=== PATIENT | female | born 1940 | race Caucasian/White ===

== ENCOUNTER 2016-10-27 12:25 | Emergency (ER) | payer OTHER ==
[~2016-10-27] VITALS: Ht 157.5 cm; Wt 60.9 kg
[~2016-10-27 12:25] MED LIST: ALEN70TA4 PO; ASPI-428 PO; CALC600T9 PO; LPT40 PO; LSN40 PO; METO50TA17 PO; NTRGSL/4 UT; [UNRECOGNIZED DRUG - CODE] PO
[2016-10-27 12:34] VITALS: TEMP 36.6; Ht 157.5 cm; Wt 60.9 kg
[2016-10-27] MEDS ORDERED: OXYMETAZOLINE HCL 0.05% NA SPR 15 ML BTL ONE (12:35)
[2016-10-27] MEDS ORDERED: ATOR-26 PO (12:55)
[2016-10-27] MEDS ORDERED: HYDR25TA4 PO (12:55)
[2016-10-27] MEDS ORDERED: OXYC1TAB3 PO (12:55)
[2016-10-27] MEDS ORDERED: AMLO-110 PO (12:55)
[2016-10-27] MEDS ORDERED: ACYC1CAP8 PO (12:55)
[2016-10-27] MEDS ORDERED: SILVER NITR/POTASSIUM NITRATE 10 APPLICATOR PACK EXT STA (13:06)
[2016-10-27] MEDS ORDERED: LIDOCAINE 4% W/AFRIN NASAL SOLN 4ML EXT STA (13:06)
--- NOTE | 2016-10-27 13:08 | EMERGENCY ROOM VISIT NOTE ---
History Report prepared by [place]: Carl Bettencourt Under the Supervision of: Dr. Ken Matt M.D. First contact with patient: 12:58 Chief Complaint: NOSE BLEED (MINOR) Stated Complaint: NOSE BLEED History of Present Illness The patient is a 76 year old female who presents to the Emergency Room via EMS with complaints of a resolving nose bleed that started around 4 and a half hours ago. She takes Aspirin, but does not take any other blood thinners. The patient states that she has sinus problems, so she blows her nose frequently every morning, but this morning, blood started running from her left side. She says that the nose bleed kept running even with lying down, so she called an ambulance, which came around an hour and a half ago. The patient adds that she takes a blood pressure medication, which has kept her blood pressure regulated well. The patient says she has had minor left-sided nose bleeds from time-to- time for the past few months, but has not had one this bad before. She has never had to have her nose cauterized before. The patient adds that she is getting an artificial heart valve next month. Source of History: patient Onset: 4 and a half hours ago Position: nose (left) Symptom Intensity: blood would not stop running Timing: other (resolving) Note: No other associated symptoms noted. Review of Systems See HPI for pertinent positives & negatives. A total of 10 systems reviewed and were otherwise negative. Past Medical & Surgical Medical Problems: (1) Anemia (2) Aortic stenosis (3) Carotid artery disease (4) Coronary artery disease (5) Dyslipidemia (6) Hypertension (7) Monoclonal gammopathy (8) Osteoporosis Family History Heart disease Hypertension Social History Smoking Status: Never Smoker Alcohol Use: none Drug Use: none Marital Status: single Housing Status: lives alone Occupation Status: retired Current/Historical Medications Scheduled Acyclovir (Zovirax), 400 MG PO QAM Alendronate Sodium (Fosamax), 70 MG PO WK Amlodipine (Norvasc), 5 MG PO QPM Aspirin (Ecotrin Low Strength), 81 MG PO DAILY Atorvastatin (Lipitor), 80 MG PO DAILY Hydrochlorothiazide (Hctz), 25 MG PO DAILY Metoprolol Tartrate (Metoprolol Tartrate), 50 MG PO BID Scheduled PRN Nitroglycerin (Nitrostat), 0.4 MG UT PRN PRN for chest pain Oxycodone Ir (Roxicodone Ir), 5 MG PO Q4H PRN for Severe Pain Allergies Coded Allergies: No Known Allergies (Unverified , 10/27/16) Physical Exam Vital Signs Date Time Temp Pulse Resp B/P (MAP) Pulse Ox O2 Delivery O2 Flow Rate FiO2 10/27/16 14:33 88 16 136/78 96 Room Air 10/27/16 14:00 96 20 141/100 97 Room Air 10/27/16 12:34 36.6 102 19 177/98 98 Room Air Physical Exam GENERAL: Patient is in no acute distress. HEENT: Nasal clip in place. Minimal oozing of blood from left side of nose. No active bleeding down back of throat. Mucous membranes moist. NECK: No stridor, no adenopathy, no meningismus, trachea is midline. LUNGS: Clear to auscultation bilaterally, no wheeze, no rhonchi, breath sounds equal. HEART: 4/6 grade systolic murmur with a regular rate and rhythm. ABDOMEN: Soft, nontender, bowel sounds positive, no hernias, no peritonitis. EXTREMITIES: No cyanosis or edema, full range of motion of all the joints without pain or difficulty, no signs for acute trauma. NEUROLOGIC: Oriented x 3, no acute motor or sensory deficits, no focal weakness. SKIN: No rash, no jaundice, no diaphoresis. Medical Decision & Procedures Laboratory Results 10/27/16 13:15 Red Blood Count 3.57, Mean Corpuscular Volume 90.2, Mean Corpuscular Hemoglobin 31.9, Mean Corpuscular Hemoglobin Concent 35.4, Mean Platelet Volume 9.3, Neutrophils (%) (Auto) 84.3, Lymphocytes (%) (Auto) 6.7, Monocytes (%) (Auto) 7.8, Eosinophils (%) (Auto) 0.7, Basophils (%) (Auto) 0.3, Neutrophils # (Auto) 8.25, Lymphocytes # (Auto) 0.66, Monocytes # (Auto) 0.76, Eosinophils # (Auto) 0.07, Basophils # (Auto) 0.03 Test 10/27/16 13:15 White Blood Count 9.79 K/uL (4.8-10.8) Red Blood Count 3.57 M/uL (4.2-5.4) Hemoglobin 11.4 g/dL (12.0-16.0) Hematocrit 32.2 % (37-47) Mean Corpuscular Volume 90.2 fL (80-100) Mean Corpuscular Hemoglobin 31.9 pg (25-34) Mean Corpuscular Hemoglobin Concent 35.4 g/dl (32-36) Platelet Count 158 K/uL (130-400) Mean Platelet Volume 9.3 fL (7.4-10.4) Neutrophils (%) (Auto) 84.3 % Lymphocytes (%) (Auto) 6.7 % Monocytes (%) (Auto) 7.8 % Eosinophils (%) (Auto) 0.7 % Basophils (%) (Auto) 0.3 % Neutrophils # (Auto) 8.25 K/uL (1.4-6.5) Lymphocytes # (Auto) 0.66 K/uL (1.2-3.4) Monocytes # (Auto) 0.76 K/uL (0.11-0.59) Eosinophils # (Auto) 0.07 K/uL (0-0.5) Basophils # (Auto) 0.03 K/uL (0-0.2) RDW Standard Deviation 43.3 fL (36.4-46.3) RDW Coefficient of Variation 13.1 % (11.5-14.5) Immature Granulocyte % (Auto) 0.2 % Immature Granulocyte # (Auto) 0.02 K/uL (0.00-0.02) Prothrombin Time 11.2 SECONDS (9.0-12.0) Prothromb Time International Ratio 1.0 (0.9-1.1) Activated Partial Thromboplast Time 26.9 SECONDS (21.0-31.0) Partial Thromboplastin Ratio 1.0 Laboratory results reviewed by me. Medications Administered Medications (Trade) Dose Ordered Sig/Bailey Route Start Time Stop Time Status Last Admin Dose Admin Oxymetazoline HCl (Afrin 0.05% Nasal [place]) 75 sprays STK-MED ONCE .ROUTE 10/27/16 12:35 10/27/16 12:36 DC 10/27/16 12:38 75 SPRAYS Procedure Nasal cautery: using lidocaine spray, left side of nose was anesthetized and silver nitrate was used to cauterize potential bleeding site, no complications. ED Course 1301: The patient was evaluated in room B6. A complete history and physical exam was performed. 1306: Ordered Afrin W/ Lidocaine 4% 4 ml EXT, Silver Nitrate Applicators 3 pkt EXT. 1412: I performed a nasal cautery on the patient. No complications. 1450: I reevaluated the patient and she is doing well. The patient verbally expressed understanding and agreement of the treatment plan. The patient will be discharged. 1500: Ordered [place] Nasal [place] 1 sprays NA. Medical Decision Differential diagnoses considered include coagulopathy, anemia, uncontrolled blood pressure, anterior or posterior epistaxis. There is no leukocytosis or concerning anemia. No coagulopathy. The patient's blood pressure is reasonably controlled. On exam, the patient had some bleeding from the left side of the nose. A nasal clip had been applied prior to my arrival in the room. I did apply some additional Afrin to the left side of the nose and repositioned the clip. After 30 minutes, the patient was still having some bleeding, the clip was reapplied. The patient was evaluated after about another 30 minutes, there was no active bleeding. I did cauterize a small area to the left anterior septum that appeared to have been bleeding earlier. The patient was watched here in the emergency room with no further bleeding. She is being discharged home with [place] nasal spray, she can return for persistent bleeding. She will follow with her doctors office. Medication Reconcilliation Current Medication List: was personally reviewed by me Blood Pressure Screening Patient's blood pressure: Elevated blood pressure Blood pressure disposition: Elevated BP felt to be situational Impression Primary Impression: Left-sided epistaxis Scribe Attestation The scribe's documentation has been prepared under my direction and personally reviewed by me in its entirety. I confirm that the note above accurately reflects all work, treatment, procedures, and medical decision making performed by me. Departure Information Dispostion Home / Self-Care Referrals Hermelindo Be, DO Forms HOME CARE DOCUMENTATION FORM, IMPORTANT VISIT INFORMATION Patient Instructions [facility] Additional Instructions if nose rebleeds apply the clip for 30 minutes--return to the ER if the bleeding will not stop ocean spray to the nose 1 spray every 2 hours no stooping or blowing the nose no hot showers see corrina eldridge for a recheck this week
[2016-10-27 13:29] LABS: BASO % 0.3 %; BASO ABS # 0.03 K/uL (0-0.2); COMPLETE YES; EOS % 0.7 %; HEMATOCRIT 32.2 % (37-47); IG% 0.2 %; LYMPH % 6.7 %; LYMPH ABS # 0.66 K/uL (1.2-3.4); MEAN CELL VOLUME 90.2 fL (80-100); MEAN CORPUSCULAR HEMOGLOBIN 31.9 pg (25-34); MEAN CORPUSCULAR HGB CONC 35.4 g/dl (32-36); MEAN PLATELET VOLUME 9.3 fL (7.4-10.4); MONO % 7.8 %; NEUT % 84.3 %; PLATELET COUNT 158 K/uL (130-400); RED BLOOD COUNT 3.57 M/uL (4.2-5.4); WHITE BLOOD COUNT 9.79 K/uL (4.8-10.8)
[2016-10-27 13:50] LABS: PROTHROMBIN TIME (PATIENT) 11.2 SECONDS (9.0-12.0)
[2016-10-27 14:33] VITALS: BP 136/78; PULSE 88; O2SAT 96
[2016-10-27] MEDS ORDERED: SODIUM CHLORIDE 0.65% NA SOLN 45 ML (OCEAN) ONE (15:00)
[2016-11-03] MEDS ORDERED: LSN40 PO (06:57)
== END 2016-10-27 15:00 | disposition home or self-care (01) ==
LOC: EDBD 12:25 → C.EDB 12:26
DX: R04.0 Epistaxis (principal); I25.10 Atherosclerotic heart disease of native coronary artery without angina pectoris; E78.5 Hyperlipidemia, unspecified; I10 Essential (primary) hypertension; M10.9 Gout, unspecified; D64.9 Anemia, unspecified; Z79.82 Long term (current) use of aspirin; Z79.899 Other long term (current) drug therapy

== ENCOUNTER → 2016-11-03 | Day surgery (SDC) | payer OTHER ==
[~2016-11-03] VITALS: Ht 157.5 cm; Wt 62.0 kg
[~2016-11-03] MED LIST changes: +ACETAMINOPHEN 325 MG TAB PO PRN; +ACYC1CAP8 PO; +AMLO-110 PO; +ATOR-26 PO; +ATROPINE SULFATE 0.1 MG/ML 5ML SYR IV PRN; -CALC600T9 PO; +DC ALL ANTICOAGULANTS PRN; +FENTANYL CITRATE INJ 50 MCG/1 ML 2 ML VIAL ONE; +HEPARIN SOD (PORCINE) 1000 UNIT/ML 10 ML VIAL ONE; +HYDR25TA4 PO; -LPT40 PO; +MIDAZOLAM HCL 1 MG/ML 2ML VIAL ONE; +NITROGLYCERIN/D5W 100MCG/ML 20ML SYR ONE; +NiCARDipine HCL INJ 2.5 MG/ML 10 ML AMP ONE; +ONDANSETRON INJ 2 MG/ML 2 ML VIAL IV PRN; +OXYC1TAB3 PO; +SODIUM CHLORIDE 0.9% 1000ML 1,000 ML IV SCH; +SODIUM CHLORIDE 0.9% 1000ML 250 ML IV PRN; -[UNRECOGNIZED DRUG - CODE] PO
[2016-11-03 07:22] VITALS: BP 159/76; PULSE 80; TEMP 36.5; O2SAT 95; Ht 157.5 cm; Wt 62.0 kg
--- NOTE | 2016-11-03 08:07 | History & Physical Bridge Note ---
H&P Re-Evaluation Bridge Note: I have examined the patient, reviewed the History & Physical and in the interval since the performance of the History & Physical I have noted the following changes of clinical significance: No changes noted except the patient had epistaxis a week ago treated in the ED and released. No addition problems or other bleeding.
--- NOTE | 2016-11-03 09:01 | Procedure Note ---
Pre-Mod Sedation Assessment General Date of Moderate Sedation: Nov 03, 2016. Start:8:23 AM Vital Signs: Vital Signs Past 12 Hours Date Time Temp Pulse Resp B/P (MAP) Pulse Ox O2 Delivery O2 Flow Rate FiO2 11/03/16 07:22 36.5 80 16 159/76 95 Room Air Review Cardiovascular: regular rate, rhythm, + systolic murmur Abdomen: normal bowel sounds, non tender, soft Lungs: chest non-tender, lungs clear Airway Class: I Pre-Sedation Airway Assessment Oral Cavity: WNL Able to Visualize Vocal Cords: No Short Thick Neck: No Hx of Sleep Apnea: No Smoking Status: Never Smoker Mallampati Classification: Class I ASA Classification: Class I Procedure Planning Contraindications-for Mod Sed: None Notes The planned sedation has been discussed with the patient and consent obtained. I have identified the patient, determined the appropriateness of sedation and have assessed the patient immediately prior to the procedure. All medicine(s) and interventions are by my order.
--- NOTE | 2016-11-03 09:02 | Procedure Note ---
Post-Mod Sedation Assessment General Date of Moderate Sedation Nov 03, 2016. Vital Signs: Vital Signs Past 12 Hours Date Time Temp Pulse Resp B/P (MAP) Pulse Ox O2 Delivery O2 Flow Rate FiO2 11/03/16 07:22 36.5 80 16 159/76 95 Room Air Review - Discharge Criteria Vital Signs Stable: Yes Alert/Oriented/Conversant: Yes Returned to Baseline Mental St: Yes Nausea Absent/Minimal: Yes Pain/Discomfort/Absent/Minimal: Yes Normal/Baseline Respirations: Yes Active Bleeding?: No Pt Received D/C Instructions: Yes Prescriptions Given: None Specific Proced. D/C Criteria Distal Pulses Present (Cardiac: Yes Groin site assessed-Card Cath: Yes Voided Prior To Discharge: Yes Discharged Patients Adult Escort/Transportation: Yes
--- NOTE | 2016-11-03 09:15 | Cardiac Catheterization ---
Procedure Note Procedure Date Nov 03, 2016. Pre-Procedure Diagnosis Valvular Disease AUC Score 9 Post-Procedure Diagnosis Mild CAD Procedure(s) Performed Coronary Angiography, Left Heart Cath, Right Heart Cath, LV Angiography, Aortography Adult Caregiver Dr. Be Reach Lift Truck Driver(s) None Estimated Blood Loss None Medication(s) Versed, Lidocaine 1% Summary of Findings Severe Aortic Stenosis Minor Coronary Artery Disease Hemodynamics Rest Ao: 147/57 Final Ao: 154/63 LV: 240/13 RA: 6 RV: 50/3 PA: 38/11 PW: 15 Recommendations valve replacement Specimens None Radiation Exposure (mGy) 1068 Contrast (mls) 140 Fluids (cc crystalloids) 50 Procedural Complication(s) None Disposition Scientific Affairs Manager Holding/Recovery ACC Data Cardiac Status Clinical evaluation leading to the procedure CAD Presntation: Stable angina Anginal Classification: CCS II Heart Failure: No Cardiogenic Shock w/in 24Hrs: No Cardiac Arrest w/in 24Hrs: No Imaging studies past 6 months: Yes Stress studies past 6 months: No Coronary Anatomy Dominant: Left LAD (% Stenosis): Mid (30) Circumflex (% Stenosis): Mid (10) RCA (% Stenosis): Normal Left Ventricular Angiography EF (%): 60 Mitral Regurgitation: None Aortography Aortic Regurgitation: None Diagnostic Status: Elective Closure Device Percutaneous Entry Location: Femoral Closure Device: Mynx Recommendations: valve replacement
--- NOTE | 2016-11-03 09:18 | Discharge Instructions ---
Discharge Instructions Procedure Procedure Date: Nov 03, 2016. Reason for Visit: Aortic Stenosis *Dr Be Doing*. Discharge Discharge Date: Nov 03, 2016. Discharge Diagnosis: Aortic Stenosis Last Recorded Wt (Kilograms): 62 Anesthesia Post Anesthesia Instructions: If you have had General Anesthesia or IV Sedation: * Do not drive today. * Resume driving when surgeon permits. * Do not make important decisions or sign legal documents today. * Call surgeon for: 1. Temperature elevations greater than 101 degrees F. 2. Uncontrollable pain. 3. Excessive bleeding. 4. Persistent nausea and vomiting. 5. Medication intolerance (nausea, vomiting or rash). * For nausea and vomiting use only clear liquids such as: tea, soda, bouillon until nausea subsides, then gradually increase diet as tolerated. * If you have any concerns or questions, call your surgeon's office. If physician is unavailable and it is an emergency, call 911 or go to the nearest emergency room. Instructions Activity Recommendations: limitations Recommended Home Diet: resume previous diet Allergies: Coded Allergies: No Known Allergies (Unverified , 10/27/16) Provider Instructions ACTIVITY RECOMMENDATIONS: It is common to feel weak and fatigue for a few days. * Do not drive or operate any motorized equipment for the next three days. * Limit stair usage (2 or 3 trips a day only) for the next three days. * Do not lift anything heavier than 10 pounds for the next three days. * Do not engage in vigorous exercise or any sports for the next five days. * You may shower the day after your procedure, but do not immerse the area for three days. Cleanse the site gently with soap and water. SPECIAL CARE INSTRUCTIONS: * You may replace the pressure dressing or band-aid the morning after the procedure. * After your procedure, it is normal to have a small bruise or small lump at the site. Examine your site daily for any change in the bruise or lump, redness, swelling, drainage or numbness. Notify your doctor if any change. BLEEDING: * If there is a small amount of bleeding at the site, lie down and apply firm pressure with a clean cloth for ten minutes. When the bleeding stops, lie quietly keeping the procedure limb straight for six hours. Notify your doctor as soon as possible. * If the bleeding does not stop after ten minutes or if there is a large amount of bleeding or spurting, call 911 immediately. Continue to lie down and hold firm pressure until help arrives. SKIN IRRITATION: * You may experience some redness and/or swelling in the area where radiation was administered. If any skin irritation occurs, please contact your family physician. FOLLOW UP VISIT: Keep any scheduled doctor appointments. Follow Up Follow-up with: Keep appointment with Dr. Sanders at [facility] on Tuesday [facility] Recommendations: Call your doctor if: * Temperature above 101 degrees * Pain not relieved by pain medicine ordered * There is increased drainage or redness from any incision * You have any unanswered questions or concerns. Your Doctors Instructions noted above were prepared by provider Hermelindo Be. Patient Signature Section: Patient Instructions Signature Page Tamie Lopez Patient (or Guardian) Signature/Date: I have read and understand the instructions given to me by my caregivers. Caregiver/RN/Doctor Signature/Date: The above-named patient and/or guardian has received patient instructions on this date. + Original Patient Signature Page (only) stays with chart. Please make copy for patient.
[2016-11-03 10:02] LABS: ISTAT ARTERIAL BLOOD GAS HCO3 23 meq/L (19-24); ISTAT ARTERIAL BLOOD GAS PCO2 38 mmHg (35-46); ISTAT ARTERIAL BLOOD GAS PO2 < 32 mmHg (80-95); ISTAT ARTERIAL BLOOD GAS pH 7.39 (7.35-7.45); ISTAT CARBON DIOXIDE 24 mEq/l (24-31)
[2016-11-03 10:02] LABS: ISTAT ARTERIAL BLOOD GAS HCO3 22 meq/L (19-24); ISTAT ARTERIAL BLOOD GAS PCO2 36 mmHg (35-46); ISTAT ARTERIAL BLOOD GAS PO2 44 mmHg (80-95); ISTAT ARTERIAL BLOOD GAS pH 7.38 (7.35-7.45); ISTAT CARBON DIOXIDE 23 mEq/l (24-31)
[2016-11-03 10:24] LABS: ISTAT ALLEN TEST Pass; ISTAT ARTERIAL BLOOD GAS HCO3 22 meq/L (19-24); ISTAT ARTERIAL BLOOD GAS PCO2 36 mmHg (35-46); ISTAT ARTERIAL BLOOD GAS PO2 44 mmHg (80-95); ISTAT CARBON DIOXIDE 23 mEq/l (24-31); ISTAT DELIVERY SYSTEM Room Air; ISTAT SITE R Radial
[2016-11-03 13:00] VITALS: BP 138/75; PULSE 76; O2SAT 97
== END | disposition home or self-care (01) ==
LOC: C.CATH 06:25
PROVIDERS: ATTEND Internal Medicine Interventional Cardiology
DX: I35.0 Nonrheumatic aortic (valve) stenosis (principal); I25.119 Atherosclerotic heart disease of native coronary artery with unspecified angina pectoris; C90.01 Multiple myeloma in remission; N18.3 Chronic kidney disease, stage 3 (moderate); I12.9 Hypertensive chronic kidney disease with stage 1 through stage 4 chronic kidney disease, or unspecified chronic kidney disease; Z85.828 Personal history of other malignant neoplasm of skin

== ENCOUNTER 2020-10-20 20:39 | Inpatient (IN) ==
--- NOTE | 2020-10-20 20:59 | Emergency Department Note ---
Impression & Plan Anemia, Acute respiratory distress, Hypoxia, Pulmonary edema, Hypomagnesemia ED Provider Note NAME: LORIN SALMERON AGE: 80 SEX: F : 1940 ARRIVES VIA: Ambulance INFORMANT: Patient, EMS ED PROVIDER(S): Ab Marquez DO CHIEF COMPLAINT: Weakness HPI: The patient is an 80-year-old female who presented to the emergency depa rtment for an evaluation of generalized weakness. The patient has a history of multiple myeloma. Recently she decided to stop taking all medications and has decided that she wanted to be a DNR. She was found by family and friends today to be very weak. The patient was sent to the emergency department via ambulance because the friends were very concerned. At this time the patient denies having any chest pain. She does complain of significant difficulty breathing. She states the breathing difficulty is worse with lying flat or with ambulation. She denies having any fever. She does complain of a dry cough which is nonproductive. She states she has had no falls. She states she has been intermittently compliant with her outpatient medications only takes them when she wants to. The patient states that she has had no treatment for her multiple myeloma. She has not seen her family doctor recently. ROS: See above HPI for pertinent positives & negatives. A total of 10 systems reviewed and were otherwise negative. PAST MEDICAL HISTORY: See Below PAST SURGICAL HISTORY: See Below FAMILY HISTORY: See Below SOCIAL HISTORY: See Below HOME MEDICATIONS: See Below ALLERGIES: See Below VITALS: See Below PHYSICAL EXAMINATION: GENERAL: Patient is awake and alert. She appears frail and ill. EYES: The conjunctivae are clear. The pupils are round and reactive. EARS, NOSE, MOUTH AND THROAT: The nose is without any evidence of any deformity. NECK: The neck is nontender and supple. JVD was noted. RESPIRATORY: Diminished breath sounds are noted throughout. Rales were noted in the entire right lung field. Tachypnea with conversational dyspnea is appreci ated. CARDIOVASCULAR: Regular rate and rhythm was noted to auscultation. Systolic murmur was suggested. GASTROINTESTINAL: The abdomen is soft. Abdomen is nontender. MUSCULOSKELETAL/EXTREMITIES: There is no evidence of gross deformity full range of motion is noted in the hips and shoulders. SKIN: Pedal edema was noted bilaterally. NEUROLOGIC: Patient is awake alert and oriented x3. MEDICAL DECISION MAKING: The patient is an 80-year-old female who presented to the emergency department with difficulty breathing and generalized weakness. The patient was significantly hypoxic. Her overall history and physical exam appear to be consistent with pulmonary edema. She was treated with IV Lasix as well as IV magnesium for magnesium replacement in the emergency department. She was placed on supplemental oxygen. The patient states that she did not want to have any heroic measures and would prefer to be a DNR. At this time I will defer that formal discussion to the admitting team. I discussed the patient's laboratory and radiographic studies with her. [facility] They will evaluate the patient in the emergency department for further management and disposition. It is unclear if the patient wants transfusion at this time. Triage Nursing notes reviewed. Prior medical records reviewed Vital Signs: reviewed and remarkable for hypoxia. Differential diagnosis: Infection, dehydration, metabolic abnormality, hypo/hyperglycemia, electrolyte disturbance, anemia, hypoxia, cardiac sources, intracerebral event, toxicologic, neurologic, as well as other pathologies. ER treatment provided: See below Diagnostics interpreted by me: ECG: EKG was obtained in the emergency department. My interpretation is sinus rhythm at 97 bpm. PVCs were noted. Left bundle branch block pattern was noted with ST segment elevations in the anterior leads. This was compared to a tracing from August 252020. No significant changes were noted. Cardiac Monitoring: An order was placed for continuous cardiac monitoring. The monitor shows a rate of 80 bpm with sinus rhythm. Laboratory studies: As stated above and show below. Imaging studies: See below Consultation(s): I discussed this case with Dr. Donovan who [facility] He will evaluate the patient in the emergency department for further management and disposition. Past Med/Surg History Medical History Basal cell carcinoma left eye lid Cancer MULTIPLE MYELOMA Cancer of [place] of right eye Carotid artery stenosis Chronic kidney disease UNKNOWN STAGE. NO DIAYLSIS NEEDED. Depression Hyperlipidemia Hypertension Osteoporosis Peripheral neuropathy Pulmonary hypertension Surgical History History of cataract surgery BILATERAL History of heart valve replacement "PIG VALVE" AORTIC VALVE REPLACEMENT. (11/30/2016) ARI ARTEAGA. FOLLOWS WITH DR JENNIFER Hx of blepharoplasty Social History Smoking Status: Never smoker Second Hand Exposure: No; Hx Alcohol Use: No Hx Substance Use: No Preferred Language: Serbian Communication Ability: Effective [place] Required: No Beliefs That Will Affect Care: None Current Living Situation: Alone Feels Safe at Home: Yes Assistive Devices: Glasses Allergies Allergies Allergy/AdvReac Type Severity Reaction Status Date / Time No Known Allergies Allergy Verified 10/20/20 21:48 Home Meds Home Medications Medication Instructions Recorded Confirmed amlodipine 5 mg tablet (Norvasc) 10 mg PO HS 06/21/18 10/20/20 atorvastatin 80 mg tablet 80 mg PO QAM 06/21/18 10/20/20 hydrochlorothiazide 25 mg tablet 25 mg PO QAM 06/21/18 10/20/20 lisinopril 10 mg tablet 10 mg PO QAM 06/21/18 10/20/20 metoprolol tartrate 50 mg tablet 50 mg PO BID 06/21/18 10/20/20 (Lopressor) apixaban 2.5 mg tablet (Eliquis) 2.5 mg PO BID 08/25/20 10/20/20 cetirizine 1 mg/mL oral solution 5 mg PO DAILY 08/25/20 10/20/20 acyclovir 400 mg tablet 400 mg PO DAILYBB 10/20/20 10/20/20 Results & Data (ED) Vital Signs Vital Signs - 24 hr 10/20/20 20:51 10/20/20 21:00 10/20/20 21:30 Temperature 36.8 C Temperature Source Oral Pulse Rate 98 H 97 H 89 Pulse Rate from SpO2 Sensor 94 H 88 Respiratory Rate 24 28 H 26 H Respiratory Effort / Characteristics Non-Labored Spontaneous Respiratory Depth Normal Blood Pressure 145/65 H 149/66 H 146/65 H Blood Pressure Mean 91 93 92 Pulse Oximetry 78 L 94 94 Oxygen Delivery Method Room Air Nasal Cannula Nasal Cannula Oxygen Flow Rate Sepsis New/Unexplained Change in Mental Status N/A Sepsis Action Taken by Nursing No Action Required 10/20/20 22:00 10/20/20 22:30 10/20/20 23:00 Temperature Temperature Source Pulse Rate 94 H 83 87 Pulse Rate from SpO2 Sensor 95 H 83 86 Respiratory Rate 26 H 22 23 Respiratory Effort / Characteristics Respiratory Depth Blood Pressure 150/73 H 134/59 L 139/65 Blood Pressure Mean 98 84 89 Pulse Oximetry 94 98 92 Oxygen Delivery Method Nasal Cannula Nasal Cannula Nasal Cannula Oxygen Flow Rate 3 3 Sepsis New/Unexplained Change in Mental Status Sepsis Action Taken by Nursing 10/20/20 23:30 10/21/20 00:00 Temperature Temperature Source Pulse Rate 97 H 79 Pulse Rate from SpO2 Sensor 96 H 84 Respiratory Rate 24 24 Respiratory Effort / Characteristics Respiratory Depth Blood Pressure 153/76 H 140/65 Blood Pressure Mean 101 90 Pulse Oximetry 95 91 Oxygen Delivery Method Nasal Cannula Nasal Cannula Oxygen Flow Rate 3 3 Sepsis New/Unexplained Change in Mental Status Sepsis Action Taken by Nursing Laboratory Data Result diagrams: 10/20/20 21:09 10/20/20 21:09 Lab Results 10/20/20 10/20/20 10/20/20 Range/Units 20:56 20:56 21:09 WBC (4.8-10.8) K/uL RBC (4.2-5.4) M/uL Hgb (12.0-16.0) g/dL Hct (37-47) % MCV (80-100) fL MCH (25-34) pg MCHC (32-36) g/dL RDW Std Deviation (36.4-46.3) fL RDW Coeff of Chap[place] (11.5-14.5) % Plt Count (130-400) K/uL MPV (7.4-10.4) fL Immature Gran % (Auto) % Neut % (Auto) % Lymph % (Auto) % [place] % (Auto) % Eos % (Auto) % Baso % (Auto) % Neut # (Auto) (1.4-6.5) K/uL Lymph # (Auto) (1.2-3.4) K/uL [place] # (Auto) (0.11-0.59) K/uL Eos # (Auto) (0-0.5) K/uL Baso # (Auto) (0-0.2) K/uL Immature Gran # (Auto) (0.00-0.02) K/uL Polychromasia PT (9.0-12.0) Seconds INR (0.9-1.1) APTT (21.0-31.0) Seconds PTT Ratio VBG pH (7.36-7.41) VBG pCO2 (38-50) mmHg VBG pO2 mmHg VBG HCO3 mmol/L VBG O2 Saturation % VBG Base Excess mEq/L Barometric Pressure mm/Hg Sodium (136-145) mmol/L Potassium (3.5-5.1) mmol/L Chloride (98-107) mmol/L Carbon Dioxide (21-32) mmol/L Anion Gap (3-11) BUN (7-18) mg/dl Creatinine (0.6-1.2) mg/dl Est Cr Clr Drug Dosing ml/min Est GFR ( Amer) ml/min Est GFR (Non-Af Amer) ml/min BUN/Creatinine Ratio (10-20) Glucose (70-99) mg/dl Lactate (0.4-2.0) mmol/L Calcium (8.5-10.1) mg/dl Magnesium (1.8-2.4) mg/dl Total Bilirubin (0.2-1) mg/dl AST (15-37) U/L ALT (12-78) U/L Alkaline Phosphatase (45-117) U/L Total Creatine Kinase (26-192) U/L Troponin I (0-0.045) ng/ml NT-Pro-B Natriuret Pep (0-1800) pg/ml Total Protein (6.4-8.2) gm/dl Albumin (3.4-5.0) gm/dl Globulin (2.5-4.0) gm/dl Albumin/Globulin Ratio (0.9-2) TSH (0.300-4.500) uIu/ml COVID-19 Eval Order Covid19 at [facility] SARS-CoV-2 (PCR) NEGATIVE (Negative) Blood Type B Positive Antibody Screen NEGATIVE 10/20/20 10/20/20 10/20/20 Range/Units 21:09 21:09 21:09 WBC 8.00 (4.8-10.8) K/uL RBC 1.91 L (4.2-5.4) M/uL Hgb 6.2 L* (12.0-16.0) g/dL Hct 19.6 L* (37-47) % MCV 102.6 H (80-100) fL MCH 32.5 (25-34) pg MCHC 31.6 L (32-36) g/dL RDW Std Deviation 65.9 H (36.4-46.3) fL RDW Coeff of [place] 17.9 H (11.5-14.5) % Plt Count 146 (130-400) K/uL MPV 8.7 (7.4-10.4) fL Immature Gran % (Auto) 1.3 % Neut % (Auto) 66.0 % Lymph % (Auto) 20.0 % [place] % (Auto) 11.9 % Eos % (Auto) 0.5 % Baso % (Auto) 0.3 % Neut # (Auto) 5.29 (1.4-6.5) K/uL Lymph # (Auto) 1.60 (1.2-3.4) K/uL [place] # (Auto) 0.95 H (0.11-0.59) K/uL Eos # (Auto) 0.04 (0-0.5) K/uL Baso # (Auto) 0.02 (0-0.2) K/uL Immature Gran # (Auto) 0.10 H (0.00-0.02) K/uL Polychromasia 1+ PT 13.1 H (9.0-12.0) Seconds INR 1.3 H (0.9-1.1) APTT 35.6 H (21.0-31.0) Seconds PTT Ratio 1.4 VBG pH (7.36-7.41) VBG pCO2 (38-50) mmHg VBG pO2 mmHg VBG HCO3 mmol/L VBG O2 Saturation % VBG Base Excess mEq/L Barometric Pressure mm/Hg Sodium 137 (136-145) mmol/L Potassium 3.2 L (3.5-5.1) mmol/L Chloride 107 (98-107) mmol/L Carbon Dioxide 23 (21-32) mmol/L Anion Gap 8.0 (3-11) BUN 37 H (7-18) mg/dl Creatinine 1.65 H (0.6-1.2) mg/dl Est Cr Clr Drug Dosing 20.8 ml/min Est GFR ( Amer) 33.2 ml/min Est GFR (Non-Af Amer) 28.6 ml/min BUN/Creatinine Ratio 22.4 H (10-20) Glucose 123 H (70-99) mg/dl Lactate (0.4-2.0) mmol/L Calcium 8.3 L (8.5-10.1) mg/dl Magnesium 1.5 L (1.8-2.4) mg/dl Total Bilirubin 0.9 (0.2-1) mg/dl AST 22 (15-37) U/L ALT 15 (12-78) U/L Alkaline Phosphatase 108 (45-117) U/L Total Creatine Kinase 84 (26-192) U/L Troponin I 0.131 H* (0-0.045) ng/ml NT-Pro-B Natriuret Pep 73468 H (0-1800) pg/ml Total Protein 10.6 H (6.4-8.2) gm/dl Albumin 2.7 L (3.4-5.0) gm/dl Globulin 7.9 H (2.5-4.0) gm/dl Albumin/Globulin Ratio 0.3 L (0.9-2) TSH 2.270 (0.300-4.500) uIu/ml COVID-19 Eval Order SARS-CoV-2 (PCR) (Negative) Blood Type Antibody Screen 10/20/20 10/20/20 Range/Units 21:09 21:09 WBC (4.8-10.8) K/uL RBC (4.2-5.4) M/uL Hgb (12.0-16.0) g/dL Hct (37-47) % MCV (80-100) fL MCH (25-34) pg MCHC (32-36) g/dL RDW Std Deviation (36.4-46.3) fL RDW Coeff of [place] (11.5-14.5) % Plt Count (130-400) K/uL MPV (7.4-10.4) fL Immature Gran % (Auto) % Neut % (Auto) % Lymph % (Auto) % [place] % (Auto) % Eos % (Auto) % Baso % (Auto) % Neut # (Auto) (1.4-6.5) K/uL Lymph # (Auto) (1.2-3.4) K/uL [place] # (Auto) (0.11-0.59) K/uL Eos # (Auto) (0-0.5) K/uL Baso # (Auto) (0-0.2) K/uL Immature Gran # (Auto) (0.00-0.02) K/uL Polychromasia PT (9.0-12.0) Seconds INR (0.9-1.1) APTT (21.0-31.0) Seconds PTT Ratio VBG pH 7.44 H (7.36-7.41) VBG pCO2 34 L (38-50) mmHg VBG pO2 27 mmHg VBG HCO3 22 mmol/L VBG O2 Saturation < 60.0 % VBG Base Excess -1.6 mEq/L Barometric Pressure 733.0 mm/Hg Sodium (136-145) mmol/L Potassium (3.5-5.1) mmol/L Chloride (98-107) mmol/L Carbon Dioxide (21-32) mmol/L Anion Gap (3-11) BUN (7-18) mg/dl Creatinine (0.6-1.2) mg/dl Est Cr Clr Drug Dosing ml/min Est GFR ( Amer) ml/min Est GFR (Non-Af Amer) ml/min BUN/Creatinine Ratio (10-20) Glucose (70-99) mg/dl Lactate 2.0 (0.4-2.0) mmol/L Calcium (8.5-10.1) mg/dl Magnesium (1.8-2.4) mg/dl Total Bilirubin (0.2-1) mg/dl AST (15-37) U/L ALT (12-78) U/L Alkaline Phosphatase (45-117) U/L Total Creatine Kinase (26-192) U/L Troponin I (0-0.045) ng/ml NT-Pro-B Natriuret Pep (0-1800) pg/ml Total Protein (6.4-8.2) gm/dl Albumin (3.4-5.0) gm/dl Globulin (2.5-4.0) gm/dl Albumin/Globulin Ratio (0.9-2) TSH (0.300-4.500) uIu/ml COVID-19 Eval Order SARS-CoV-2 (PCR) (Negative) Blood Type Antibody Screen Administered Medications Magnesium Sulfate/Dextrose (Magnesium Sulfate / D5w) 1 gm in 100 mls @ 100 mls/hr IV Q1H SUMEET Stop: 10/21/20 00:18 Last Admin: 10/20/20 23:42 Dose: 100 mls/hr Documented by: [id number] Infusion: 10/20/20 23:42 Dose: 100 mls/hr Documented by: [id number] Admin: 10/20/20 22:50 Dose: 100 mls/hr Documented by: [id number] Discontinued Medications Furosemide (Furosemide 40 Mg/4 Ml Vial) 20 mg IV NOW STA Stop: 10/20/20 22:20 Last Admin: 10/20/20 22:46 Dose: 20 mg Documented by: [id number] Discharge Plan Visit Data Chief Complaint: Weakness Stated Complaint: WEAKNESS/LETHAGY ED Provider: Ab Marquez Discharge Problem: Anemia, Acute respiratory distress, Hypoxia, Pulmonary edema, Hypomagnesemia Patient Disposition: Being Evaluated by Hospitalist Condition: Good Forms Stand Alone Forms: My [facility] Prescriptions Prescriptions: No Action atorvastatin 80 mg Tablet 80 mg PO QAM RF: 0 amlodipine [Norvasc] 5 mg Tablet 10 mg PO HS RF: 0 lisinopril 10 mg Tablet 10 mg PO QAM RF: 0 metoprolol tartrate [Lopressor] 50 mg Tablet 50 mg PO BID RF: 0 hydrochlorothiazide 25 mg Tablet 25 mg PO QAM RF: 0 Eliquis 2.5 mg tablet 2.5 mg PO BID RF: 0 cetirizine 1 mg/mL solution 5 mg PO DAILY RF: 0 acyclovir 400 mg tablet 400 mg PO DAILYBB RF: 0 Referrals Referrals: Carlyle Garcia MD [Primary Care Provider] -
[2020-10-20 21:30] LABS: Base Excess VBG -1.6 mEq/L; HCO3 VBG 22 mmol/L; PCO2 VBG 34 mmHg (38-50); PO2 VBG 27 mmHg; pH VBG 7.44 (7.36-7.41)
[2020-10-20 21:33] LABS: INR 1.3 (0.9-1.1); Oxygen Saturation VBG < 60.0 %; Partial Thromboplastin Ratio 1.4; Partial Thromboplastin Time 35.6 Seconds (21.0-31.0); Prothrombin Time 13.1 Seconds (9.0-12.0)
[2020-10-20 21:45] LABS: Hematocrit (blood only) 19.6 % (37-47); Hemoglobin 6.2 g/dL (12.0-16.0); Mean Corpuscular Hemoglobin 32.5 pg (25-34); Mean Corpuscular Hgb Conc 31.6 g/dL (32-36); Mean Corpuscular Volume 102.6 fL (80-100); Mean Platelet Volume 8.7 fL (7.4-10.4); Platelet Count 146 K/uL (130-400); RDW Coefficient of Variation 17.9 % (11.5-14.5); RDW Standard Deviation 65.9 fL (36.4-46.3); Red Blood Count 1.91 M/uL (4.2-5.4)
[2020-10-20 21:56] LABS: Potassium 3.2 mmol/L (3.5-5.1)
[2020-10-20 22:06] LABS: Albumin Level 2.7 gm/dl (3.4-5.0); BUN Creatinine Ratio 22.4 (10-20); Calcium 8.3 mg/dl (8.5-10.1); Creatinine Clr Calc Pharmacy 20.8 ml/min; Est GFR (African American) 33.2 ml/min; Est GFR (Non-African American) 28.6 ml/min; Magnesium 1.5 mg/dl (1.8-2.4)
[2020-10-20] MEDS ORDERED: FUROSEMIDE 40 MG/4 ML VIAL IV STA (22:19)
[2020-10-20 22:28] LABS: Albumin Globulin Ratio 0.3 (0.9-2); Bilirubin,Total 0.9 mg/dl (0.2-1); Globulin 7.9 gm/dl (2.5-4.0); Thyroid Stimulating Hormone 2.27 uIu/ml (0.300-4.500); Total Protein 10.6 gm/dl (6.4-8.2); Troponin I 0.131 ng/ml (0-0.045)
[2020-10-20 22:32] LABS: Basophils # (auto) 0.02 K/uL (0-0.2); Basophils % (auto) 0.3 %; Eosinophils # (auto) 0.04 K/uL (0-0.5); Eosinophils % (auto) 0.5 %; Immature Granulocytes % (auto) 1.3 %; Monocytes # (auto) 0.95 K/uL (0.11-0.59); Monocytes % (auto) 11.9 %; Neutrophils # (auto) 5.29 K/uL (1.4-6.5); Polychromasia 1+
[2020-10-20] MEDS: MAGNESIUM SULFATE / D5W 1 GM/100 ML BAG IV SCH ×2 (22:50→23:42)
[2020-10-21] MEDS ORDERED: ACETAMINOPHEN 500 MG TAB PO ONE (01:00)
--- NOTE | 2020-10-21 02:07 | History and Physical Report ---
DATE OF ADMISSION: 10/20/2020. CHIEF COMPLAINT: Weakness. HISTORY OF PRESENT ILLNESS: This is an 80-year-old female with past medical history significant for multiple myeloma in relapse, history of DVT, hyperlipidemia, hypertension, aortic stenosis, status post TAVR, history of chronic kidney disease stage IIIB, malignant neoplasm of trigone of urinary bladder, peripheral polyneuropathy, compression fracture of thoracic vertebra, history of nonmelanoma skin cancer. The patient lives in an apartment. The patient, lately she is using a walker and she feels good about it and she says the last time she fell was in May. She was in the ER in August with complaint of back pain. Her imaging studies show multiple compression fractures of the spine. The patient went home to follow as outpatient. The patient was recently seen last week by her family doctor by telemedicine. The patient seems to be not taking her medications, she is on and off stopping her medications. She gets Meals on Wheels. As per family doctor notes also she states that she is ready to now and lived her life. Denies feeling depressed. Does not want to take any medication. No suicidal ideation as per her PCP notes. The patient today was brought in by her aides/friends. She says she gets two people to help her. Her friends and aides were concerned, and she was brought in here. She has complaints of difficulty breathing and also back pain. Has occasional dry cough and occasional gagging. She states she is not able to drink coffee. She is vomiting coffee, but she is able to eat her meals okay. Since the pandemic started, she stopped going to see her Hem/Onc and now she is having difficulty with ambulation and it is difficult to go to the office, but when asked her if transport arranged will she go, then she states that even one of her friends offered to help her, but she declined, she does not want to go to doctors. She says she is declining and she accepts it and she does not want to go and she does not want any treatment.But today she is acceptable for any blood transfusion or any treatments to make her feel better, but she wanted to be DNR/DNI. In the ER, she was requiring oxygen to maintain her saturations. Denies any chest pain, denies any headache. She says left eyelid is taken off of the cancer on the eyelid. Says has blurred vision sometimes on the left eye,but then it clears up. She has sinusitis and she has some runny nose and occasional sore throat. She has some chest pain on and off on the ribcage, abdominal discomfort sometimes on and off. She states she is moving her bowels regularly and denies any blood in the stool or black stools. No hematuria. She states 2-3 weeks ago she had one episode of bleeding, but she thinks it is from the hemorrhoids. She is ok to be seen by palliative care. She says that her appetite is not that great and she is losing weight. She says she does not have any kids and was not .She has one brother who is in town, and she is not talking to him, and there is a 93-year-old sister in [place]. Her insight seems to be good. She is alert and oriented. ALLERGIES: No known drug allergies. PAST MEDICAL HISTORY: As mentioned above. PAST SURGICAL HISTORY: Cystoscopy, left upper eyelid repair, Mohs surgery, bilateral cataract surgery, TAVR. MEDICATIONS: The patient is supposed to be on acyclovir 400 mg p.o. daily, amlodipine 10 mg p.o. at bedtime, Eliquis 2.5 mg p.o. b.i.d., atorvastatin 80 mg p.o. a.m., cetirizine 5 mg p.o. daily, hydrochlorothiazide 25 mg p.o. a.m., lisinopril 10 mg p.o. a.m., Lopressor 50 mg p.o. b.i.d. FAMILY HISTORY: Significant for mother had chronic kidney disease, cerebral hemorrhage; sister had cancer; another sister has breast cancer; brother has CAD; father has [place] and pneumoconiosis. SOCIAL HISTORY: Single, lives in an apartment. No smoking, no alcohol, no drug use. REVIEW OF SYSTEMS: As per HPI. Rest of the review of systems is negative. PHYSICAL EXAMINATION: GENERAL: The patient is old and frail, not in acute distress. VITAL SIGNS: Temperature 36.8, pulse 79, respiratory rate 24, blood pressure 140/65, oxygen 91% on 3 liters. HEENT: Pupils equal, round and reactive to light. Upper eyelid is absent. Oral mucosa dry. NECK: No JVD, no neck masses. HEART: S1 and S2 heard. Regular rate and rhythm. No murmur, no gallop. RESPIRATORY: Normal AP diameter. No accessory muscle use. No wheezing, no crackles. ABDOMEN: Soft, bowel sounds present, nontender, no distention. CENTRAL NERVOUS SYSTEM: Alert and oriented x3. Insight is good. Speech is clear. No facial droop. Obeys simple commands. Moves extremities. EXTREMITIES: A +1 pedal edema present, no erythema seen. LABORATORY DATA: WBC 8, hemoglobin 6.2, hematocrit 19.6, platelets 146. PT 13.1, INR 1.3, APTT 35.6. Venous blood gas with pH of 7.44, pCO2 of 34, pO2 of 27, bicarbonate 22. Sodium 137, potassium 3.2, chloride 107, bicarbonate 23, BUN 37, creatinine 1.65, serum glucose 123, lactate 2, calcium 8.3, magnesium 1.5, total bilirubin 0.9, AST 22, ALT 15, alkaline phosphatase 108. Total creatinine kinase 84. Troponin 1 of 0.13. BNP 13,281. TSH 2.2. SARS-CoV-2 PCR negative. IMAGING DATA: Chest x-ray, pulmonary congestion versus infiltrate within the left lung. EKG: Sinus rhythm with PVCs left bundle-branch block rate of 97, QTc of 502. ASSESSMENT AND PLAN: An 80-year-old female with history of multiple myeloma, history of deep venous thrombosis, declining any treatment, and presents with ongoing weakness and found to have anemia and also shortness of breath. 1. Shortness of breath: Could be congestive heart failure, could be pneumonia, anemia contributing. Currently received a dose of Lasix iv 20mg in the ER. Will continue oxygenation. Monitor in the tele floor. Will get an echocardiogram. The patient will get another dose of Lasix iv 40mg in between blood transfusion. Will closely monitor. will also get a CT of the chest. Will consider consulting cardiology in the a.m. 2. Anemia: Hemoglobin of 6.2. Hemoglobin was about 8.8 in August of this year. The patient has multiple myeloma. The patient has Eliquis. Denies any GI bleed. She had one episode of bleed a couple of weeks ago and thinks from hemorrhoids.. Not getting any treatment for myeloma currently. We will follow stool for Hemoccult, vitamin B12, folate levels. Will transfuse 2 units of PRBCs and follow the response. 3. Electrolyte abnormalities with a magnesium of 1.5, potassium of 3.2, will replace. Will follow the repeat labs. 4. Mild elevation of troponin, most likely demand ischemia. We will follow serial enzymes and echocardiogram. Currently, the patient denies any chest pain. 5. Chronic kidney disease stage III. Creatinine of 1.6. Seems to be around baseline. We will follow the labs while the patient is getting diuretics. 6. History of bladder tumor. Tumor was removed from lateral wall in January of 2019. She followed with repeat cystoscopy in April 2019. 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 There is a plan for repeat cysto in 6 months, but the patient seems to be not following. 7. History of deep venous thrombosis, on Eliquis. We will continue. 8. History of hypertension: On Norvasc, lisinopril, hydrochlorothiazide, Lopressor. Will monitor the blood pressure. 9. Hyperlipidemia, on statin. 10. Aortic stenosis, status post TAVR. 11. Compression fractures. Pain control. PT, OT when stable. 12. Peripheral neuropathy. Ambulates with a walker. PT/OT. 13. The patient currently seems to be sometimes not taking her medications, noncompliant with her medications. Does not want any treatment for her cancer, not following with any doctor. She says she is ready to , but she is okay to get treated for current conditions. The patient wants to be DNR/DNI and the patient was okay to talk to palliative care. Will consult palliative care in the a.m. 14. Deep venous thrombosis prophylaxis, on Eliquis, which will be continued. If hemoccult is positive, will hold Eliquis. 15, Prolonged qt. avoid qt prolonging drugs. Follow ekg. DISPOSITION: Admit to tele floor. PT/OT prior to discharge. Social service to help with discharge planning. Job ID: [id number] [facility] CENTERFelicity
[2020-10-21] MEDS ORDERED: ONDANSETRON INJ 2 MG/ML 2 ML VIAL IV PRN (02:25)
[2020-10-21] MEDS ORDERED: SODIUM CHLORIDE 0.9% 250 ML IV PRN (02:25)
[2020-10-21] MEDS ORDERED: NITROGLYCERIN SL 0.4 MG/TAB TAB SL PRN (02:25)
[2020-10-21] MEDS ORDERED: POLYETHYLENE (MIRALAX) 17 GM PACK PO PRN (02:25)
[2020-10-21] MEDS ORDERED: PIPERACILL/TAZOBAC CONSULT ACTIVE PRN (02:25)
[2020-10-21] MEDS ORDERED: PIPERACILLIN/TAZOBACTAM 3.375 GM in DEXTROSE 5% 100 ML IV ONE (03:00)
[2020-10-21] MEDS: DOXYCYCLINE HYCLATE 100 MG in DEXTROSE 5% 100 ML IV SCH ×2 (04:00→15:47)
[2020-10-21] MEDS ORDERED: FUROSEMIDE 40 MG/4 ML VIAL IV ONE ×2 (04:00→07:50)
[2020-10-21] MEDS: ACETAMINOPHEN 325 MG TAB PO PRN ×2 (04:04→14:29)
[2020-10-21] MEDS: ACYCLOVIR 400 MG TAB PO SCH (06:20)
--- NOTE | 2020-10-21 06:38 | Hospitalist Progress Note ---
Date of Service October 21, 2020 Assessment & Plan Admission and Anticipated Discharge Date Admission Date: October 20, 2020 Subjective started on antibiotics zosyn and doxy. Possible aspiration. full liquid diet and speech evaluation. Results & Data Results & Data ([facility]) Vital Signs (Past 12 Hours) Vital Signs Temp Pulse Pulse Resp BP BP Pulse Ox 10/21/20 06:00 36.8 C 81 18 138/61 93 10/21/20 05:39 36.7 C 77 18 142/63 H 91 10/21/20 05:30 36.6 C 76 18 133/66 93 10/21/20 05:08 36.7 C 80 18 136/65 95 10/21/20 04:54 36.5 C 82 18 148/65 H 91 10/21/20 04:36 36.5 C 81 18 136/63 91 10/21/20 02:40 36.5 C 90 18 139/62 92 10/21/20 02:39 10/21/20 02:00 90 24 138/69 94 10/21/20 01:00 82 23 127/61 95 10/21/20 00:30 88 19 147/84 H 10/21/20 00:00 79 24 140/65 91 10/20/20 23:30 97 H 24 153/76 H 95 10/20/20 23:00 87 23 139/65 92 10/20/20 22:30 83 22 134/59 L 98 10/20/20 22:00 94 H 26 H 150/73 H 94 10/20/20 21:30 89 26 H 146/65 H 94 10/20/20 21:00 97 H 28 H 149/66 H 94 10/20/20 20:51 36.8 C 98 H 24 145/65 H 78 L Pulse Ox 10/21/20 06:00 10/21/20 05:39 10/21/20 05:30 10/21/20 05:08 10/21/20 04:54 10/21/20 04:36 10/21/20 02:40 10/21/20 02:39 90 10/21/20 02:00 10/21/20 01:00 10/21/20 00:30 10/21/20 00:00 10/20/20 23:30 10/20/20 23:00 10/20/20 22:30 10/20/20 22:00 10/20/20 21:30 10/20/20 21:00 10/20/20 20:51
[2020-10-21 07:25] LABS: Rouleaux 1+
--- NOTE | 2020-10-21 07:52 | XRay Report ---
XR chest 1V portable CLINICAL HISTORY: weakness COMPARISON STUDY: Chest CT August 25, 2020. FINDINGS: Prosthetic aortic valve is noted. Note is made of moderate cardiomegaly. There is no pneumo thorax. Moderate left pleural effusion is noted. There is a small right pleural effusion. Pulmonary e lamonte is noted. Bilateral airspace opacities are greater within the left lung. Findings have increased since chest CT of August 25, 2020. IMPRESSION: 1. Moderate pulmonary edema. 2. Moderate left pleural effusion with left lung airspace opacity which could reflect atelectasis or less likely consolidation. 3. Small right pleural effusion. ACT 112: Negative or not required by law. Electronically signed by: Davi Butler M.D. 10/21/2020 7:50 AM
[2020-10-21] MEDS: APIXABAN 2.5 MG TAB PO SCH ×3 (08:06→20:04)
[2020-10-21] MEDS: CETIRIZINE HCL 10 MG TABLET PO SCH (08:08)
[2020-10-21] MEDS: ATORVASTATIN 40 MG TAB PO SCH (08:08)
[2020-10-21] MEDS: lisinopril 10 MG TAB PO SCH (08:13)
[2020-10-21] MEDS: METOPROLOL TARTRATE 50 MG TAB PO SCH ×2 (08:13→20:01)
--- NOTE | 2020-10-21 08:17 | Pulmonary Consultation ---
Date of Consultation October 21, 2020 Assessment & Plan (1) Acute respiratory failure with hypoxia: 80-year-old female with a history of multiple myeloma not on treatment, CHF, aortic stenosis and CKD stage III presenting to the hospital due to weakness and shortness of breath. Left pleural effusion: I performed a thoracentesis of the left pleural effusion. 560 mL of fawn-colored fluid was evacuated from the left hemithorax. Pleural fluid studies sent including cultures and cytology. CHF remains high in the differential. Recommend obtaining an echocardiogram. Agree with continued diuresis. She does appear fluid overloaded, overall. Hypoxia: Continue to wean oxygen to maintain saturations of 88 to 92%. Her pulse ox readings from her forehead are very poor. I suggested to the nurse to find a different location to monitor her pulse oximetry including possibly her finger. She is currently on oxygen mask at 7 L/min. I doubt that she needs this amount of oxygen at this time. Acute anemia: Suspect this is likely contributing to her shortness of breath and possibly contributing to from cardiac failure. Agree with replacing blood products to maintain hemoglobin above 7. She will likely need diuresis post transfusion. Anemia possibly related to multiple myeloma. Oncology input may be beneficial. Agree with palliative care consultation. Overall prognosis guarded. Thank you for the consultation. We will continue to follow along with you. (2) Bilateral pleural effusion: (3) Moderate protein-energy malnutrition: (4) Anemia: History of Present Illness Reason for Consultation: Acute hypoxic respiratory failure with left pleural effusion Attending Physician: Tank Story MD History of Present Illness 80-year-old female with a history of chronic kidney disease stage III, bladder cancer, peripheral polyneuropathy, compression fractures of the thoracic vertebra, hyperlipidemia, hypertension, history of DVT, aortic stenosis status post TAVR and skin cancer presenting to the hospital for generalized weakness. There is also mention of a history of multiple myeloma in her chart. She apparently stopped taking all her medications and decided to become DNR. She was found by family or friends to be very weak and brought to the ER. Patient was noted in the ER that she was having difficulty breathing which was worse when lying flat. Fever was denied. She has had intermittent compliance with her medications. She was started on Lasix 40 mg twice daily by the hospitalist. She was found to be anemic with a hemoglobin of 6.2. Chemistry suggested GEOFF. Creatinine is currently 1.65. Other electrolyte derangements including hypomagnesemia and hypokalemia. proBNP was markedly elevated to 13,281. Chest x-ray completed yesterday demonstrated moderate pulmonary edema. Moderate left pleural effusion with evidence of atelectasis. Small right pleural eff usion was seen as well. CT chest completed 10/21/2020 with evidence of bilateral effusions, left greater than right. Atelectasis seen. Significant motion artifact was seen. Prior CT chest from 08/25/2020 also personally reviewed which demonstrate left pleural effusion. Current pleural effusion appears larger. Allergies Allergy/AdvReac Type Severity Reaction Status Date / Time No Known Allergies Allergy Verified 10/20/20 21:48 Home Medications Medication Instructions Recorded Confirmed Type amlodipine 5 mg tablet (Norvasc) 10 mg PO HS 06/21/18 10/20/20 History atorvastatin 80 mg tablet 80 mg PO QAM 06/21/18 10/20/20 History hydrochlorothiazide 25 mg tablet 25 mg PO QAM 06/21/18 10/20/20 History lisinopril 10 mg tablet 10 mg PO QAM 06/21/18 10/20/20 History metoprolol tartrate 50 mg tablet 50 mg PO BID 06/21/18 10/20/20 History (Lopressor) apixaban 2.5 mg tablet (Eliquis) 2.5 mg PO BID 08/25/20 10/20/20 History cetirizine 1 mg/mL oral solution 5 mg PO DAILY 08/25/20 10/20/20 History acyclovir 400 mg tablet 400 mg PO DAILYBB 10/20/20 10/20/20 History Patient History Medical History (Updated 10/21/20 @ 09:51 by Paolo Ojeda MD) Acute respiratory failure with hypoxia Anemia Basal cell carcinoma left eye lid Bilateral pleural effusion Cancer MULTIPLE MYELOMA Cancer of [place] of right eye Carotid artery stenosis Chronic kidney disease UNKNOWN STAGE. NO DIAYLSIS NEEDED. Depression Hyperlipidemia Hypertension Moderate protein-energy malnutrition Osteoporosis Peripheral neuropathy Pulmonary hypertension Surgical History History of cataract surgery BILATERAL History of heart valve replacement "PIG VALVE" AORTIC VALVE REPLACEMENT. (11/30/2016) ARI ARTEAGA. FOLLOWS WITH DR JENNIFER Al of blepharoplasty Social History Smoking Status: Never smoker Second Hand Exposure: No; Hx Alcohol Use: No Hx Substance Use: No Preferred Language: Qatari Communication Ability: Effective Biology Tutor Required: No Beliefs That Will Affect Care: None Current Living Situation: Alone Current Living Situation Comment: [facility] [place] Other Information That Helps Us Care for You: No Feels Safe at Home: Yes Safety Concerns: Feels Safe At This Time Assistive Devices: Glasses Review of Systems Review of Systems: 01/15 point ROS negative unless noted elsewhere Physical Exam Constitutional: + thin and + frail appearing Eyes: PERRL, conjunctivae normal, anicteric sclerae ENMT: external ear and nose normal, oropharynx normal Neck: normal visual inspection Respiratory: + tachypneic Auscultation: + diminished lung sounds Cardiovascular: Rate/Rhythm: regular rate and regular rhythm Heart Sounds: + murmur Extremities: + edema Gastrointestinal (Abdomen): normal bowel sounds, soft, nontender, no hepatosplenomegaly Musculoskeletal: Head/Neck/Chest: + limited ROM of neck Kyphoscoliotic Skin: no rashes, warm and dry Neurologic: PERRL, EOMI, accommodation nl, no face palsy, no dysarthria Psychiatric: A+Ox3, euthymic affect Results & Data Results & Data ([facility]) Vital Signs (Past 12 Hours) Vital Signs Temp Pulse Pulse Pulse Resp BP BP 10/21/20 08:10 83 128/72 10/21/20 07:23 97.5 F L 81 12 10/21/20 07:20 97.5 F L 80 15 137/64 10/21/20 06:39 98.1 F 85 18 152/55 H 10/21/20 06:00 98.2 F 81 18 138/61 10/21/20 05:39 98.1 F 77 18 142/63 H 10/21/20 05:30 97.9 F 76 18 133/66 10/21/20 05:08 98.1 F 80 18 136/65 10/21/20 04:54 97.7 F 82 18 148/65 H 10/21/20 04:36 97.7 F 81 18 136/63 10/21/20 02:40 97.7 F 90 18 10/21/20 02:39 10/21/20 02:00 90 24 138/69 10/21/20 01:00 82 23 127/61 10/21/20 00:30 88 19 147/84 H 10/21/20 00:00 79 24 140/65 10/20/20 23:30 97 H 24 153/76 H 10/20/20 23:00 87 23 139/65 10/20/20 22:30 83 22 134/59 L 10/20/20 22:00 94 H 26 H 150/73 H 10/20/20 21:30 89 26 H 146/65 H 10/20/20 21:00 97 H 28 H 149/66 H 10/20/20 20:51 98.2 F 98 H 24 145/65 H BP Pulse Ox Pulse Ox 10/21/20 08:10 93 10/21/20 07:23 137/64 92 10/21/20 07:20 97 10/21/20 06:39 90 10/21/20 06:00 93 10/21/20 05:39 91 10/21/20 05:30 93 10/21/20 05:08 95 10/21/20 04:54 91 10/21/20 04:36 91 10/21/20 02:40 139/62 92 10/21/20 02:39 90 10/21/20 02:00 94 10/21/20 01:00 95 10/21/20 00:30 10/21/20 00:00 91 10/20/20 23:30 95 10/20/20 23:00 92 10/20/20 22:30 98 10/20/20 22:00 94 10/20/20 21:30 94 10/20/20 21:00 94 10/20/20 20:51 78 L Diagnostic Findings Chest x-ray CT imaging reviewed as noted per HPI PG Care Time/CCT Total # of Minutes Spent Total Time Spent with Patient: Total time spent is greater than 50% in coordination of care (as documented) at patient's floor/unit and/or counseling patient: Coding Level of Care Code 33736 Inpt Consult Level 5 Diagnoses Acute respiratory failure with hypoxia J96.01 Bilateral pleural effusion J90 Moderate protein-energy malnutrition E44.0 Anemia D64.9
--- NOTE | 2020-10-21 08:28 | CT Scan Report ---
CT chest diagnostic wo con CLINICAL HISTORY: pneumonia/chf. sob/cough COMPARISON STUDY: August 25, 2020 CT DOSE: 193.17 mGy.cm TECHNIQUE: CT of the thorax was performed from the thoracic inlet to the lung bases. Images are revi ewed in the axial, sagittal, and coronal planes. IV contrast was not administered for this examinatio n. A dose lowering technique was utilized adhering to the principles of ALARA. FINDINGS: There is no axillary, supra clavicle or internal mammary lymphadenopathy seen. Prominent, 1.3 cm precarinal lymph node is again seen. Overall evaluation is limited due to motion artifact and lack of IV contrast. Thyroid: Is not well seen. Esophagus is dilated, containing gas and ingested material. Lower portion of esophagus is not well s een due to surrounding opacities. Thoracic aorta: The thoracic aorta is normal in course and caliber. Heavy calcifications of aortic wa ll are seen. Prosthetic aortic valve and heavy calcifications of the mitral annulus are again seen. Heart: Heart is normal in size. Mild pericardial effusion is seen. Severe coronary calcifications are demonstrated. Lungs and pleural spaces: Trachea and the right bronchial tree are patent. Mild interval worsening of the left pleural effusion associated with compressive atelectasis of the l eft lower lobe. Small bronchial structures within effusion/consolidative portion of the left lower lo be are occluded which could be seen in aspiration or represent infectious/inflammatory etiology. Interval development of moderate right pleural effusion. Evaluation of lung parenchyma is significantly limited due to prominent motion artifact. Upper abdomen: Partially visualized liver, spleen and left kidney shows no evidence of acute abnorma lities. Mild ascites and mesenteric edema are seen. Skeletal structures: Severe diffuse osteopenia and multilevel compression fracture deformities of the thoracic spine interval worsening of compression fracture deformity of T6 redemonstration of joseph van fracture deformity of T8, T10. Interval development of compression fracture deformity of T4 and T12 vertebral bodies. IMPRESSION: 1. Dilated esophagus containing gas and ingested material. Interval worsening of the left pleural ef fusion and occluded bronchial structures at the left lower lobe could be due to aspiration. Please co rrelate above-mentioned findings with prior history and clinical presentation of aspiration. 2. Interval development of moderate right pleural effusion. 3. Stable cardiac silhouette without significant septal thickening of the aerated portion of pulmona ry parenchyma, differential diagnosis include heart failure pattern without significant interval wor sening. 4. Diffuse severe osteopenia. Multiple compression fracture deformities within thoracic spine which is worsening of the height loss of T6 and new compression fracture deformities of T4 and T12. 5. The rest of findings as detailed above. ACT 112: Positive. There are findings on this exam that require communication between the performing entity and the patient following Patient Test Result Information Act ([place] Act 112) guidelines. The above report was generated using voice recognition software. It may contain grammatical, syntax o r spelling errors. Electronically signed by: Viv Shah DO 10/21/2020 8:27 AM
--- NOTE | 2020-10-21 08:48 | Cardiology Consultation ---
Date of Consultation October 21, 2020 Assessment & Plan (1) Acute respiratory failure with hypoxia: b/l pleural effusions noted, L >R S/P Left thoracentesis this morning Supplement oxygen Continue low dose furosemide Appreciate pulm input (2) Bilateral pleural effusion: S/P thoracentesis Low dose IV lasix (3) Anemia: Evidence of coffee ground emesis, per patient, last week Hbg 6.2 on admission Transfuse as tolerated. IV lasix to keep I+O's even May need to hold Eliquis (on low dose for history of DVT) Consider GI consult (4) History of transcatheter aortic valve replacement (TAVR): Mildly elevated gradients on echo, however stable from 2017 Normal LV function severe pulm hypertension Continue low dose lasix Minimally elevated cardiac enzymes due to hypoxia and anemia, demand ischemia, not indicative of ACS. Case discussed with Dr. Gordon. Will follow Supervising Physician Co-Signing Physician Notes S: Pateint seen. Frail. No acute distress Exam: Decreased BS at the bases Impression/ Plan: Agree with Maya Gna PA-C's findings and plans with the follow ing additions. Hgb improved s/p transfusion to > 10 g/dl. Agree with repeat Hgb/ Hct at 1600. Most recent potassium level was 2.6 mmol / l, will coordinate replacement and follow up with Dr Story. Continue Zosyn for now due to concerns of aspiration. Continue diuretics. History of Present Illness Reason for Consultation: Elevated troponin; SOB; Pleural effusion Requesting Physician: Dr. Donovan Attending Physician: Dr. Gordon History of Present Illness Patient is an 80 year old female who is known to [facility] cardiology, Dr. Be for history of severe aortic stenosis, s/p TAVR in 2017, preop cath at that time demonstrated only mild CAD. Other history includes prior DVT on chronic Eliquis, CKD, history of multiple myeloma for which she apparently stopped therapies last year during COVID, history of bladder CA, hypertension and dyslipidemia. Apparently patient stopped taking her meds several months ago. She noted progressive weakness and "did not care to live anymore". Her friends became concerned and due to progressive weakness and SOB, she presented to ER yesterday. Found to have large left pleural effusion with significant anemia. She recalls several bouts of GI bleeding several weeks ago after having BM. She also reports "gagging/throwing up coffee" several weeks ago. On admission her troponin was minimally elevated, and cardiology was consulted. At time of consult, patient resting in bed comfortably. Oxygen mask in place with mild hypoxia. She underwent left thoracentesis earlier this morning which she tolerated. No chest pain reported. SOB improving per patient. No dizziness or lightheadedness. She is currently receiving blood transfusion. She reports ongoing weakness. She was agreeable to palliative care consult as well. Allergies Allergy/AdvReac Type Severity Reaction Status Date / Time No Known Allergies Allergy Verified 10/20/20 21:48 Home Medications Medication Instructions Recorded Confirmed Type amlodipine 5 mg tablet (Norvasc) 10 mg PO HS 06/21/18 10/20/20 History atorvastatin 80 mg tablet 80 mg PO QAM 06/21/18 10/20/20 History hydrochlorothiazide 25 mg tablet 25 mg PO QAM 06/21/18 10/20/20 History lisinopril 10 mg tablet 10 mg PO QAM 06/21/18 10/20/20 History metoprolol tartrate 50 mg tablet 50 mg PO BID 06/21/18 10/20/20 History (Lopressor) apixaban 2.5 mg tablet (Eliquis) 2.5 mg PO BID 08/25/20 10/20/20 History cetirizine 1 mg/mL oral solution 5 mg PO DAILY 08/25/20 10/20/20 History acyclovir 400 mg tablet 400 mg PO DAILYBB 10/20/20 10/20/20 History Patient History Medical History Acute respiratory failure with hypoxia Anemia Basal cell carcinoma left eye lid Bilateral pleural effusion Cancer MULTIPLE MYELOMA Cancer of [place] of right eye Carotid artery stenosis Chronic kidney disease UNKNOWN STAGE. NO DIAYLSIS NEEDED. Decreased appetite Depression Hyperlipidemia Hypertension Moderate protein-energy malnutrition Osteoporosis Palliative care encounter Peripheral neuropathy Pulmonary hypertension Shortness of breath Surgical History History of cataract surgery BILATERAL History of heart valve replacement "PIG VALVE" AORTIC VALVE REPLACEMENT. (11/30/2016) ARI ARTEAGA. FOLLOWS WITH DR JENNIFER Al of blepharoplasty Social History Smoking Status: Never smoker Second Hand Exposure: No; Hx Alcohol Use: No Hx Substance Use: No Preferred Language: Chadian Communication Ability: Effective Budget Accountant Required: No Beliefs That Will Affect Care: None marital status: Single Current Living Situation: Alone Current Living Situation Comment: [place]. [facility] Other Information That Helps Us Care for You: No Feels Safe at Home: Yes Safety Concerns: Feels Safe At This Time Assistive Devices: Oxygen - Continuous and Walker Review of Systems Review of Systems: All systems reviewed & are unremarkable except as noted in HPI & below Physical Exam Constitutional: + ill appearing and + thin; not in distress Eyes: Left eyelid removed Neck: trachea midline, no thyromegaly Respiratory: no respiratory distress Auscultation: + diminished lung sounds (bases bilaterally); no crackles and no wheezes Cardiovascular: Rate/Rhythm: regular rate and regular rhythm Heart Sounds: normal S1 and + murmur (II/ systolic murmur) Extremities: no edema Gastrointestinal (Abdomen): normal bowel sounds, soft, nontender, no hepatosplenomegaly Skin: no rashes, warm and dry Neurologic: PERRL, EOMI, accommodation nl, no face palsy, no dysarthria Psychiatric: A+Ox3, euthymic affect Results & Data ([facility]) Vital Signs (Past 12 Hours) Vital Signs Temp Pulse Pulse Pulse Resp BP BP 10/21/20 08:28 34.7 C L 92 H 18 145/73 H 10/21/20 08:10 83 128/72 10/21/20 07:23 36.4 C L 81 12 10/21/20 07:20 36.4 C L 80 15 137/64 10/21/20 06:39 36.7 C 85 18 152/55 H 10/21/20 06:00 36.8 C 81 18 138/61 10/21/20 05:39 36.7 C 77 18 142/63 H 10/21/20 05:30 36.6 C 76 18 133/66 10/21/20 05:08 36.7 C 80 18 136/65 10/21/20 04:54 36.5 C 82 18 148/65 H 10/21/20 04:36 36.5 C 81 18 136/63 10/21/20 02:40 36.5 C 90 18 10/21/20 02:39 10/21/20 02:00 90 24 138/69 10/21/20 01:00 82 23 127/61 10/21/20 00:30 88 19 147/84 H 10/21/20 00:00 79 24 140/65 10/20/20 23:30 97 H 24 153/76 H 10/20/20 23:00 87 23 139/65 10/20/20 22:30 83 22 134/59 L 10/20/20 22:00 94 H 26 H 150/73 H 10/20/20 21:30 89 26 H 146/65 H 10/20/20 21:00 97 H 28 H 149/66 H 10/20/20 20:51 36.8 C 98 H 24 145/65 H BP Pulse Ox Pulse Ox 10/21/20 08:28 10/21/20 08:10 93 10/21/20 07:23 137/64 92 10/21/20 07:20 97 10/21/20 06:39 90 10/21/20 06:00 93 10/21/20 05:39 91 10/21/20 05:30 93 10/21/20 05:08 95 10/21/20 04:54 91 10/21/20 04:36 91 10/21/20 02:40 139/62 92 10/21/20 02:39 90 10/21/20 02:00 94 10/21/20 01:00 95 10/21/20 00:30 10/21/20 00:00 91 10/20/20 23:30 95 10/20/20 23:00 92 10/20/20 22:30 98 10/20/20 22:00 94 10/20/20 21:30 94 10/20/20 21:00 94 10/20/20 20:51 78 L Laboratory Results 10/21/20 10/21/20 10/21/20 Range/Units 09:00 09:00 09:00 WBC (4.8-10.8) K/uL RBC (4.2-5.4) M/uL Hgb (12.0-16.0) g/dL Hct (37-47) % MCV (80-100) fL MCH (25-34) pg MCHC (32-36) g/dL RDW Std Deviation (36.4-46.3) fL RDW Coeff of Chaparrita (11.5-14.5) % Plt Count (130-400) K/uL MPV (7.4-10.4) fL Immature Gran % (Auto) % Neut % (Auto) % Lymph % (Auto) % [place] % (Auto) % Eos % (Auto) % Baso % (Auto) % Neut # (Auto) (1.4-6.5) K/uL Lymph # (Auto) (1.2-3.4) K/uL [place] # (Auto) (0.11-0.59) K/uL Eos # (Auto) (0-0.5) K/uL Baso # (Auto) (0-0.2) K/uL Immature Gran # (Auto) (0.00-0.02) K/uL Hypersegmented Neuts Polychromasia Rouleaux PT (9.0-12.0) Seconds INR (0.9-1.1) APTT (21.0-31.0) Seconds PTT Ratio VBG pH (7.36-7.41) VBG pCO2 (38-50) mmHg VBG pO2 mmHg VBG HCO3 mmol/L VBG O2 Saturation % VBG Base Excess mEq/L Barometric Pressure mm/Hg Sodium (136-145) mmol/L Potassium (3.5-5.1) mmol/L Chloride (98-107) mmol/L Carbon Dioxide (21-32) mmol/L Anion Gap (3-11) BUN (7-18) mg/dl Creatinine (0.6-1.2) mg/dl Est Cr Clr Drug Dosing ml/min Est GFR ( Amer) ml/min Est GFR (Non-Af Amer) ml/min BUN/Creatinine Ratio (10-20) Glucose (70-99) mg/dl Lactate (0.4-2.0) mmol/L Calcium (8.5-10.1) mg/dl Magnesium (1.8-2.4) mg/dl Total Bilirubin (0.2-1) mg/dl AST (15-37) U/L ALT (12-78) U/L Alkaline Phosphatase (45-117) U/L Total Creatine Kinase (26-192) U/L Troponin I (0-0.045) ng/ml NT-Pro-B Natriuret Pep (0-1800) pg/ml Total Protein (6.4-8.2) gm/dl Albumin (3.4-5.0) gm/dl Globulin (2.5-4.0) gm/dl Albumin/Globulin Ratio (0.9-2) TSH (0.300-4.500) uIu/ml Fluid Neutrophils % 17 % Fluid Lymphocytes % 9 % Fluid Eosinophils % 0 % Fluid Basophils % 0 % Fluid Meso/Macro/[place] % 74 % Fluid Comment Pleural Fluid Source LEFT LUNG Pleural Color STRAW Pleural Appearance HAZY Pleural pH 7.49 H (7.3-7.4) Pleural WBC 592 /uL Pleural RBC 4000 /uL Pleural Total Protein 5.3 g/dl Pleural LDH 158 U/L Pleural Glucose 124 mg/dl Pleural Amylase 43 U/L Pleural Cholesterol Pending COVID-19 Eval Order SARS-CoV-2 (PCR) (Negative) Blood Type Antibody Screen Crossmatch 10/20/20 10/20/20 10/20/20 Range/Units 21:09 21:09 21:09 WBC (4.8-10.8) K/uL RBC (4.2-5.4) M/uL Hgb (12.0-16.0) g/dL Hct (37-47) % MCV (80-100) fL MCH (25-34) pg MCHC (32-36) g/dL RDW Std Deviation (36.4-46.3) fL RDW Coeff of Chapar[place] (11.5-14.5) % Plt Count (130-400) K/uL MPV (7.4-10.4) fL Immature Gran % (Auto) % Neut % (Auto) % Lymph % (Auto) % [place] % (Auto) % Eos % (Auto) % Baso % (Auto) % Neut # (Auto) (1.4-6.5) K/uL Lymph # (Auto) (1.2-3.4) K/uL [place] # (Auto) (0.11-0.59) K/uL Eos # (Auto) (0-0.5) K/uL Baso # (Auto) (0-0.2) K/uL Immature Gran # (Auto) (0.00-0.02) K/uL Hypersegmented Neuts Polychromasia Rouleaux PT (9.0-12.0) Seconds INR (0.9-1.1) APTT (21.0-31.0) Seconds PTT Ratio VBG pH 7.44 H (7.36-7.41) VBG pCO2 34 L (38-50) mmHg VBG pO2 27 mmHg VBG HCO3 22 mmol/L VBG O2 Saturation < 60.0 % VBG Base Excess -1.6 mEq/L Barometric Pressure 733.0 mm/Hg Sodium 137 (136-145) mmol/L Potassium 3.2 L (3.5-5.1) mmol/L Chloride 107 (98-107) mmol/L Carbon Dioxide 23 (21-32) mmol/L Anion Gap 8.0 (3-11) BUN 37 H (7-18) mg/dl Creatinine 1.65 H (0.6-1.2) mg/dl Est Cr Clr Drug Dosing 20.8 ml/min Est GFR ( Amer) 33.2 ml/min Est GFR (Non-Af Amer) 28.6 ml/min BUN/Creatinine Ratio 22.4 H (10-20) Glucose 123 H (70-99) mg/dl Lactate 2.0 (0.4-2.0) mmol/L Calcium 8.3 L (8.5-10.1) mg/dl Magnesium 1.5 L (1.8-2.4) mg/dl Total Bilirubin 0.9 (0.2-1) mg/dl AST 22 (15-37) U/L ALT 15 (12-78) U/L Alkaline Phosphatase 108 (45-117) U/L Total Creatine Kinase 84 (26-192) U/L Troponin I 0.131 H* (0-0.045) ng/ml NT-Pro-B Natriuret Pep 61907 H (0-1800) pg/ml Total Protein 10.6 H (6.4-8.2) gm/dl Albumin 2.7 L (3.4-5.0) gm/dl Globulin 7.9 H (2.5-4.0) gm/dl Albumin/Globulin Ratio 0.3 L (0.9-2) TSH 2.270 (0.300-4.500) uIu/ml Fluid Neutrophils % % Fluid Lymphocytes % % Fluid Eosinophils % % Fluid Basophils % % Fluid Meso/Macro/[place] % % Fluid Comment Pleural Fluid Source Pleural Color Pleural Appearance Pleural pH (7.3-7.4) Pleural WBC /uL Pleural RBC /uL Pleural Total Protein g/dl Pleural LDH U/L Pleural Glucose mg/dl Pleural Amylase U/L Pleural Cholesterol COVID-19 Eval Order SARS-CoV-2 (PCR) (Negative) Blood Type Antibody Screen Crossmatch 10/20/20 10/20/20 10/20/20 Range/Units 21:09 21:09 21:09 WBC 8.00 (4.8-10.8) K/uL RBC 1.91 L (4.2-5.4) M/uL Hgb 6.2 L* (12.0-16.0) g/dL Hct 19.6 L* (37-47) % MCV 102.6 H (80-100) fL MCH 32.5 (25-34) pg MCHC 31.6 L (32-36) g/dL RDW Std Deviation 65.9 H (36.4-46.3) fL RDW Coeff of Chaparrita 17.9 H (11.5-14.5) % Plt Count 146 (130-400) K/uL MPV 8.7 (7.4-10.4) fL Immature Gran % (Auto) 1.3 % Neut % (Auto) 66.0 % Lymph % (Auto) 20.0 % [place] % (Auto) 11.9 % Eos % (Auto) 0.5 % Baso % (Auto) 0.3 % Neut # (Auto) 5.29 (1.4-6.5) K/uL Lymph # (Auto) 1.60 (1.2-3.4) K/uL [place] # (Auto) 0.95 H (0.11-0.59) K/uL Eos # (Auto) 0.04 (0-0.5) K/uL Baso # (Auto) 0.02 (0-0.2) K/uL Immature Gran # (Auto) 0.10 H (0.00-0.02) K/uL Hypersegmented Neuts 1+ Polychromasia 1+ Rouleaux 1+ PT 13.1 H (9.0-12.0) Seconds INR 1.3 H (0.9-1.1) APTT 35.6 H (21.0-31.0) Seconds PTT Ratio 1.4 VBG pH (7.36-7.41) VBG pCO2 (38-50) mmHg VBG pO2 mmHg VBG HCO3 mmol/L VBG O2 Saturation % VBG Base Excess mEq/L Barometric Pressure mm/Hg Sodium (136-145) mmol/L Potassium (3.5-5.1) mmol/L Chloride (98-107) mmol/L Carbon Dioxide (21-32) mmol/L Anion Gap (3-11) BUN (7-18) mg/dl Creatinine (0.6-1.2) mg/dl Est Cr Clr Drug Dosing ml/min Est GFR ( Amer) ml/min Est GFR (Non-Af Amer) ml/min BUN/Creatinine Ratio (10-20) Glucose (70-99) mg/dl Lactate (0.4-2.0) mmol/L Calcium (8.5-10.1) mg/dl Magnesium (1.8-2.4) mg/dl Total Bilirubin (0.2-1) mg/dl AST (15-37) U/L ALT (12-78) U/L Alkaline Phosphatase (45-117) U/L Total Creatine Kinase (26-192) U/L Troponin I (0-0.045) ng/ml NT-Pro-B Natriuret Pep (0-1800) pg/ml Total Protein (6.4-8.2) gm/dl Albumin (3.4-5.0) gm/dl Globulin (2.5-4.0) gm/dl Albumin/Globulin Ratio (0.9-2) TSH (0.300-4.500) uIu/ml Fluid Neutrophils % % Fluid Lymphocytes % % Fluid Eosinophils % % Fluid Basophils % % Fluid Meso/Macro/[place] % % Fluid Comment Pleural Fluid Source Pleural Color Pleural Appearance Pleural pH (7.3-7.4) Pleural WBC /uL Pleural RBC /uL Pleural Total Protein g/dl Pleural LDH U/L Pleural Glucose mg/dl Pleural Amylase U/L Pleural Cholesterol COVID-19 Eval Order SARS-CoV-2 (PCR) (Negative) Blood Type B Positive Antibody Screen NEGATIVE Crossmatch See Detail 10/20/20 10/20/20 Range/Units 20:56 20:56 WBC (4.8-10.8) K/uL RBC (4.2-5.4) M/uL Hgb (12.0-16.0) g/dL Hct (37-47) % MCV (80-100) fL MCH (25-34) pg MCHC (32-36) g/dL RDW Std Deviation (36.4-46.3) fL RDW Coeff of Chapar[place] (11.5-14.5) % Plt Count (130-400) K/uL MPV (7.4-10.4) fL Immature Gran % (Auto) % Neut % (Auto) % Lymph % (Auto) % [place] % (Auto) % Eos % (Auto) % Baso % (Auto) % Neut # (Auto) (1.4-6.5) K/uL Lymph # (Auto) (1.2-3.4) K/uL [place] # (Auto) (0.11-0.59) K/uL Eos # (Auto) (0-0.5) K/uL Baso # (Auto) (0-0.2) K/uL Immature Gran # (Auto) (0.00-0.02) K/uL Hypersegmented Neuts Polychromasia Rouleaux PT (9.0-12.0) Seconds INR (0.9-1.1) APTT (21.0-31.0) Seconds PTT Ratio VBG pH (7.36-7.41) VBG pCO2 (38-50) mmHg VBG pO2 mmHg VBG HCO3 mmol/L VBG O2 Saturation % VBG Base Excess mEq/L Barometric Pressure mm/Hg Sodium (136-145) mmol/L Potassium (3.5-5.1) mmol/L Chloride (98-107) mmol/L Carbon Dioxide (21-32) mmol/L Anion Gap (3-11) BUN (7-18) mg/dl Creatinine (0.6-1.2) mg/dl Est Cr Clr Drug Dosing ml/min Est GFR ( Amer) ml/min Est GFR (Non-Af Amer) ml/min BUN/Creatinine Ratio (10-20) Glucose (70-99) mg/dl Lactate (0.4-2.0) mmol/L Calcium (8.5-10.1) mg/dl Magnesium (1.8-2.4) mg/dl Total Bilirubin (0.2-1) mg/dl AST (15-37) U/L ALT (12-78) U/L Alkaline Phosphatase (45-117) U/L Total Creatine Kinase (26-192) U/L Troponin I (0-0.045) ng/ml NT-Pro-B Natriuret Pep (0-1800) pg/ml Total Protein (6.4-8.2) gm/dl Albumin (3.4-5.0) gm/dl Globulin (2.5-4.0) gm/dl Albumin/Globulin Ratio (0.9-2) TSH (0.300-4.500) uIu/ml Fluid Neutrophils % % Fluid Lymphocytes % % Fluid Eosinophils % % Fluid Basophils % % Fluid Meso/Macro/[place] % % Fluid Comment Pleural Fluid Source Pleural Color Pleural Appearance Pleural pH (7.3-7.4) Pleural WBC /uL Pleural RBC /uL Pleural Total Protein g/dl Pleural LDH U/L Pleural Glucose mg/dl Pleural Amylase U/L Pleural Cholesterol COVID-19 Eval Order Covid19 at [facility] SARS-CoV-2 (PCR) NEGATIVE (Negative) Blood Type Antibody Screen Crossmatch Diagnostic Findings EKG on admission: Sinus rhythm with Premature supraventricular complexes and with occasional Premature ventricular complexes Left bundle branch block No significant change from previous Chest xray completed this morning post left thoracentesis: IMPRESSION: 1. No pneumothorax following left thoracentesis. 2. Decrease in size of the left pleural effusion. 3. Persistent pulmonary edema Echo during this admission: LV wall motion is normal LVEF 60-65% Moderate MR Moderate to severe TR Severe pulm hypertension is present Pulm artery systolic pressure is 65-70 mmHg S/P TAVR - prosthetic valve not well visualized Peak Aortic valve velocity is 2.9 m/s. Mildly elevated, however, appears stable from prior study at [facility] 1 month post TAVR in Dec 2016. Grade I diastolic dysfunction In 2017, pulm systolic pressure was 40-45mmHg Prior outside echo completed 12/2016: Interpretation Summary The examination is adequate to evaluate the referral indication. The left ventricular cavity size is normal. The LV wall thickness is normal. Calculated LV ejection Fraction = 61% (biplane method of discs). The left ventricular wall motion is normal. The estimated pulmonary artery systolic pressure is 4045mm Hg. The patient is status post TAVR with Josias type prosthetic valve. Mild paravalvular aortic valve prosthesis regurgitation is present. Compared to previous study dated 12/01/2016, flow velocities through the aortic valve prosthesis are similar. Medications Administered Medications amlodipine 5 mg tablet (Norvasc) 10 mg PO HS 06/21/18 [History Confirmed 10/20/20] atorvastatin 80 mg tablet 80 mg PO QAM 06/21/18 [History Confirmed 10/20/20] hydrochlorothiazide 25 mg tablet 25 mg PO QAM 06/21/18 [History Confirmed 10/20/20] lisinopril 10 mg tablet 10 mg PO QAM 06/21/18 [History Confirmed 10/20/20] metoprolol tartrate 50 mg tablet (Lopressor) 50 mg PO BID 06/21/18 [History Confirmed 10/20/20] apixaban 2.5 mg tablet (Eliquis) 2.5 mg PO BID 08/25/20 [History Confirmed 10/20/20] cetirizine 1 mg/mL oral solution 5 mg PO DAILY 08/25/20 [History Confirmed 10/20/20] acyclovir 400 mg tablet 400 mg PO DAILYBB 10/20/20 [History Confirmed 10/20/20] Home Medications Acetaminophen (Acetaminophen 325 Mg Tab) 650 mg PO Q4H PRN PRN Reason: Pain or Fever Stop: 11/20/20 02:24 Last Admin: 10/21/20 04:04 Dose: 650 mg Documented by: Acyclovir (Acyclovir 400 Mg Tab) 400 mg PO DAILYBB [facility] Stop: 11/20/20 06:29 Last Admin: 10/21/20 06:20 Dose: 400 mg Documented by: Amlodipine Besylate (Amlodipine Besylate 5 Mg Tab) 10 mg PO HS [facility] Stop: 11/20/20 20:59 Apixaban (Apixaban 2.5 Mg Tab) 2.5 mg PO BID [facility] Stop: 11/20/20 08:59 Last Admin: 10/21/20 09:23 Dose: Not Given Documented by: Atorvastatin Calcium (Atorvastatin 40 Mg Tab) 80 mg PO QAM [facility] Stop: 11/20/20 08:59 Last Admin: 10/21/20 08:08 Dose: 80 mg Documented by: Cetirizine HCl (Cetirizine Hcl 10 Mg Tablet) 5 mg PO DAILY [facility] Stop: 11/20/20 08:59 Last Admin: 10/21/20 08:08 Dose: 5 mg Documented by: Hydrochlorothiazide (Hydrochlorothiazide 25 Mg Tab) 25 mg PO QAM [facility] Stop: 11/20/20 08:59 Last Admin: 10/21/20 08:13 Dose: 25 mg Documented by: Doxycycline Hyclate 100 mg/ (Dextrose) 110 mls @ 50 mls/hr IV Q12H SUMEET Stop: 10/28/20 02:59 Last Infusion: 10/21/20 06:20 Dose: Infused Documented by: Sodium Chloride (Nss) 250 mls @ 15 mls/hr IV .[id number] PRN PRN Reason: For Transfusion Stop: 11/20/20 02:24 Piperacillin Sod/Tazobactam (Sod 3.375 gm/ Dextrose) 115 mls @ 28.75 mls/hr IV Q8H [facility]; Protocol Stop: 10/28/20 09:59 Furosemide 20 mg/ Syringe 2 mls @ 4 mls/min IV DAILY [facility] Stop: 11/21/20 08:59 Lisinopril (Lisinopril 10 Mg Tab) 10 mg PO QAM [facility] Stop: 11/20/20 08:59 Last Admin: 10/21/20 08:13 Dose: 10 mg Documented by: Metoprolol Tartrate (Metoprolol Tartrate 50 Mg Tab) 50 mg PO BID [facility] Stop: 11/20/20 08:59 Last Admin: 10/21/20 08:13 Dose: 50 mg Documented by: Miscellaneous Information (Piperacill/Tazobac Consult Active) 1 ea N/A UD PRN PRN Reason: Consult Stop: 11/20/20 02:24 Nitroglycerin (Nitroglycerin Sl 0.4 Mg/Tab Tab) 0.4 mg SL UD PRN PRN Reason: Chest Pain Stop: 11/20/20 02:24 Polyethylene Glycol (Polyethylene (Miralax) 17 Gm Pack) 17 gm PO DAILY PRN PRN Reason: Constipation Stop: 11/20/20 02:24
[2020-10-21] MEDS ORDERED: FUROSEMIDE 20 MG in SYRINGE 0 ML IV SCH (09:00)
[2020-10-21] MEDS ORDERED: hydroCHLOROthiazide 25 MG TAB PO SCH (09:00)
--- NOTE | 2020-10-21 09:26 | Procedure Note ---
Procedure Note Date of Service October 21, 2020 Note Procedure: Diagnostic and/or therapeutic ultrasound-guided catheter thoracentesis Clinical Outcomes Manager: Dr. Paolo Ojeda Indication: Pleural effusion Consent: Signed by patient and verified with timeout prior to procedure Anesthesia: 8 mL's of 1% lidocaine without epinephrine given locally Procedure: Consent was verified and timeout performed. Appropriate imaging studies were reviewed prior to the procedure. Patient was placed in a left semirecumbent and and limited thoracic ultrasound was performed of the left lateral chest. See separate imaging. The site appropriate for thoracentesis was selected. The skin was prepped and draped in normal sterile fashion. Lidocaine was used for local analgesia. Fluid was aspirated via the finder needle. A small skin rush was made with the scalpel and the catheter over the needle apparatus was advanced over the rib into the pleural space. Using the syringe one-way valve system, a total of 560 mL's of fawn-colored fluid was removed. Procedure was terminated due to lack of flow. The catheter was removed and observed to be intact. A sterile dressing was applied. Post procedure chest x-ray was ordered. Fluid was sent for LDH, total protein, cell count, glucose, pH, cytology, AFB cultures, gram stain and culture and fungal cultures. The patient tolerated the procedure well without obvious complication. Post thoracentesis chest x-ray pending. Coding CPT Codes Pulmonary/Thoracic - Pulmonary and Thoracic: 88321 Thoracentesis w imaging ([id number]) [facility] [place] Procedure Codes (Charges) Pulmonary/Thoracic Procedure 1: Pulmonary and Thoracic: 16402 Thoracentesis w imaging
[2020-10-21] MEDS ORDERED: PIPERACILLIN/TAZOBACTAM 3.375 GM in DEXTROSE 5% 100 ML IV SCH (10:00)
[2020-10-21 10:02] LABS: Glucose Pleural Fluid 124 mg/dl
--- NOTE | 2020-10-21 10:02 | XRay Report ---
XR chest 1V portable CLINICAL HISTORY: s/p left thora COMPARISON STUDY: Chest radiograph October 20, 2020. Chest CT October 21, 2020. FINDINGS: Incidental note is made of a prosthetic aortic valve. Cardiomegaly is noted. There is no pn eumothorax following thoracentesis. Left pleural effusion has decreased in size since prior exam. Pul monary edema persists. A small right pleural effusion is again noted. IMPRESSION: 1. No pneumothorax following left thoracentesis. 2. Decrease in size of the left pleural effusion. 3. Persistent pulmonary edema. ACT 112: Negative or not required by law. Electronically signed by: Davi Butler M.D. 10/21/2020 10:00 AM
[2020-10-21 10:14] LABS: Amylase Pleural Fluid 43 U/L; LDH Pleural Fluid 158 U/L; Total Protein Pleural Fluid 5.3 g/dl
--- NOTE | 2020-10-21 10:45 | Palliative Care Consultation ---
Date of Consultation October 21, 2020 Assessment & Plan (1) Palliative care encounter: This is an 80 year old female who presented to the [facility] with increased shortness of breath at the recommendation of her family and friends. She also has been experiencing decreased appetite. Tamie has a complex medical history that includes: Multiple Myeloma, HLD, HTN, Aortic Stenosis s/p TAVR, CKD3, peripheral polyneuropathy, bladder tumor that was removed 01/20, non- melanoma skin cancer and compression fractures. Her shortness of breath was evaluated and could be from multiple contributing factors including anemia of chronic disease and pleural effusions. Her Hgb was 6.2 on arrival and she is s/p 2 UPRBC, pending recheck. Pulmonary has evaluated and seen the patient. A thoracentesis was performed today with approximately 550 cc removed. Palliative Medicine was consulted to discuss goals of care. I was able to talk with Tamie at length. She said that her breathing is 'better than it was when I came in". She was able to describe her living conditions. She lives in [facility] in a one story apartment by herself. She said that she has numerous friends that live on her floor that help to check on her. When discussing her ADL routine, she said that she has recently started to use a shower chair and does ambulate with a walker in her apartment. I asked her who helps her with getting dressed and she said "I just wear the same thing each day". I asked her who helps her get to her appointments and she laughed and said: " I don't, I just cancel them all". In talking about her code status, she confirmed being DNR/DNI. When I asked her what she would want done if her heart would stop she said "That would be the best thing". A few times in our conversation she mentioned that she would like to return to the hospital if necessary for blood transfusions, etc. We did dis cuss hospice and what that looks like but she did become overwhelmed during that conversation. She mentioned that she does not have any kids, spouse or much family. She has an elderly 93 year old sister who lives in [place], and a brother whom she does not have much contact with. Elliott Stanford is listed as a contact on her chart [phone]. I called him without positive contact being made. She mentioned that her friend on her floor that she lives on, Kiana Madrigal, is who she would want as her decision maker as 'she knows what to do with this type of thing'. I did reach out to [facility] with [employer] to begin paperwork for this transition. I do have concerns about her returning home without additional caregiver support. Could consider additional care givers or SNF placement. Apparently, per patient, [facility] has been involved with her care. Palliative medicine will follow to assist with decision making. (2) Shortness of breath: Her Hgb was 6.2 on arrival and she is s/p 2 UPRBC, pending recheck. Possibly related to anemia of chronic disease, multiple myeloma. Pulmonary did do a thoracentesis today with 1/2 L fluid removal. Currently on 6 L oxymask. She does not wear oxygen at home. (3) Decreased appetite: History of Present Illness Reason for Consultation: Goals of care Requesting Physician: Dr. Donovan Attending Physician: Tank Story MD History of Present Illness This is an 80 year old female who presented to the [facility] with increased shortness of breath at the recommendation of her family and friends. She also has been experiencing decreased appetite. Tamie has a complex medical history that includes: Multiple Myeloma, HLD, HTN, Aortic Stenosis s/p TAVR, CKD3, peripheral polyneuropathy, bladder tumor that was removed 01/20, non-melanoma skin cancer and compression fractures. Her shortness of breath was evaluated and could be from multiple contributing factors including anemia of chronic disease and pleural effusions. Her Hgb was 6.2 on arrival and she is s/p 2 UPRBC, pending recheck. Pulmonary has evaluated and seen the patient. A thorcentesis was attempted today with minimal to no fluid removed. Palliative Medicine was consulted to discuss goals of care. Please see A/P for further details. Thanks for involving Palliative Medicine with this individual. Allergies Allergy/AdvReac Type Severity Reaction Status Date / Time No Known Allergies Allergy Verified 10/20/20 21:48 Home Medications Medication Instructions Recorded Confirmed Type amlodipine 5 mg tablet (Norvasc) 10 mg PO HS 06/21/18 10/20/20 History atorvastatin 80 mg tablet 80 mg PO QAM 06/21/18 10/20/20 History hydrochlorothiazide 25 mg tablet 25 mg PO QAM 06/21/18 10/20/20 History lisinopril 10 mg tablet 10 mg PO QAM 06/21/18 10/20/20 History metoprolol tartrate 50 mg tablet 50 mg PO BID 06/21/18 10/20/20 History (Lopressor) apixaban 2.5 mg tablet (Eliquis) 2.5 mg PO BID 08/25/20 10/20/20 History cetirizine 1 mg/mL oral solution 5 mg PO DAILY 08/25/20 10/20/20 History acyclovir 400 mg tablet 400 mg PO DAILYBB 10/20/20 10/20/20 History Patient History Medical History Acute respiratory failure with hypoxia Anemia Basal cell carcinoma left eye lid Bilateral pleural effusion Cancer MULTIPLE MYELOMA Cancer of [place] of right eye Carotid artery stenosis Chronic kidney disease UNKNOWN STAGE. NO DIAYLSIS NEEDED. Decreased appetite Depression Hyperlipidemia Hypertension Moderate protein-energy malnutrition Osteoporosis Palliative care encounter Peripheral neuropathy Pulmonary hypertension Shortness of breath Surgical History History of cataract surgery BILATERAL History of heart valve replacement "PIG VALVE" AORTIC VALVE REPLACEMENT. (11/30/2016) ARI ARTEAGA. FOLLOWS WITH DR JENNIFER Al of blepharoplasty Social History Smoking Status: Never smoker Second Hand Exposure: No; Hx Alcohol Use: No Hx Substance Use: No Preferred Language: Tunisian Communication Ability: Effective Prenatal Genetic Counselor Required: No Beliefs That Will Affect Care: None marital status: Single Current Living Situation: Alone Current Living Situation Comment: [facility] Other Information That Helps Us Care for You: No Feels Safe at Home: Yes Safety Concerns: Feels Safe At This Time Assistive Devices: Oxygen - Continuous and Walker Review of Systems Review of Systems: [place] [employer] Assessment Scale: Pain: 0/3 SOB: 1/3 Tiredness: 1/3 Lack of appetite: 1/3 Anxiety: 1/3 Nausea: 0/3 Palliative Performance Scale: 30% Physical Exam Constitutional: + frail appearing, cooperative and comfortable Respiratory: normal respiratory effort; no labored breathing Auscultation: + diminished lung sounds Cardiovascular: Rate/Rhythm: regular rate and regular rhythm Heart Sounds: normal S1 and normal S2 Gastrointestinal (Abdomen): normal bowel sounds, soft, nontender, no hepatosplenomegaly Skin: + pallor Psychiatric: A+Ox3, euthymic affect Insight: good insight Judgement: + limited judgement Results & Data ([facility]) Vital Signs (Past 12 Hours) Vital Signs Temp Pulse Pulse Pulse Resp BP BP 10/21/20 08:28 34.7 C L 92 H 18 145/73 H 10/21/20 08:10 83 128/72 10/21/20 07:23 36.4 C L 81 12 10/21/20 07:20 36.4 C L 80 15 137/64 10/21/20 06:39 36.7 C 85 18 152/55 H 10/21/20 06:00 36.8 C 81 18 138/61 10/21/20 05:39 36.7 C 77 18 142/63 H 10/21/20 05:30 36.6 C 76 18 133/66 10/21/20 05:08 36.7 C 80 18 136/65 10/21/20 04:54 36.5 C 82 18 148/65 H 10/21/20 04:36 36.5 C 81 18 136/63 10/21/20 02:40 36.5 C 90 18 10/21/20 02:39 10/21/20 02:00 90 24 138/69 10/21/20 01:00 82 23 127/61 10/21/20 00:30 88 19 147/84 H 10/21/20 00:00 79 24 140/65 10/20/20 23:30 97 H 24 153/76 H 10/20/20 23:00 87 23 139/65 BP Pulse Ox Pulse Ox 10/21/20 08:28 10/21/20 08:10 93 10/21/20 07:23 137/64 92 10/21/20 07:20 97 10/21/20 06:39 90 10/21/20 06:00 93 10/21/20 05:39 91 10/21/20 05:30 93 10/21/20 05:08 95 10/21/20 04:54 91 10/21/20 04:36 91 10/21/20 02:40 139/62 92 10/21/20 02:39 90 07/20/21 02:00 94 10/21/20 01:00 95 10/21/20 00:30 10/21/20 00:00 91 10/20/20 23:30 95 10/20/20 23:00 92 PG Care Time/CCT Total # of Minutes Spent Total Time Spent with Patient: Total time spent is greater than 50% in coordination of care (as documented) at patient's floor/unit and/or counseling patient: 100 minutes with > 50% of that time spent assessing the patient, discussing goals of care, evaluating symptom management and collaborating with IDT Coding Level of Care Code 61620 Inpt Consult Level 4 Diagnoses Palliative care encounter Z51.5 Shortness of breath R06.02 Decreased appetite R63.0 Time Spent (min) 100
[2020-10-21 10:47] LABS: Appearance Pleural Fluid HAZY; Basophils, Fluid 0 %; Color Pleural Fluid STRAW; Eosinophils, Fluid 0 %; Lymphocytes, Fluid 9 %; Mono,Macrophage,Mesothelial 74 %; Neutrophils, Fluid 17 %; RBC Pleural Fluid (A) 4000 /uL; Source Pleural Fluid LEFT LUNG; WBC Pleural Fluid (A) 592 /uL
[2020-10-21 11:59] LABS: Basophils # (auto) 0.03 K/uL (0-0.2); Basophils % (auto) 0.4 %; Eosinophils # (auto) 0.07 K/uL (0-0.5); Eosinophils % (auto) 0.9 %; Hematocrit (blood only) 32.4 % (37-47); Hemoglobin 10.5 g/dL (12.0-16.0); Immature Granulocytes # (auto) 0.08 K/uL (0.00-0.02); Immature Granulocytes % (auto) 1.1 %; Lymphocytes # (auto) 0.48 K/uL (1.2-3.4); Lymphocytes % (auto) 6.4 %; Mean Corpuscular Hemoglobin 31.5 pg (25-34); Mean Corpuscular Hgb Conc 32.4 g/dL (32-36); Mean Corpuscular Volume 97.3 fL (80-100); Mean Platelet Volume 9.1 fL (7.4-10.4); Monocytes # (auto) 0.59 K/uL (0.11-0.59); Monocytes % (auto) 7.8 %; Neutrophils # (auto) 6.27 K/uL (1.4-6.5); Neutrophils % (auto) 83.4 %; Nucleated RBC # (auto) 0.05 K/uL (0-0); Nucleated RBC % (auto) 0.7 %; Platelet Count 153 K/uL (130-400); RDW Coefficient of Variation 18.3 % (11.5-14.5); RDW Standard Deviation 62.7 fL (36.4-46.3); Red Blood Count 3.33 M/uL (4.2-5.4); White Blood Count 7.52 K/uL (4.8-10.8)
[2020-10-21 12:29] LABS: Calcium 8.6 mg/dl (8.5-10.1); Creatinine Clr Calc Pharmacy 18.6 ml/min; Est GFR (African American) 29.1 ml/min; Est GFR (Non-African American) 25.1 ml/min; Phosphorus 3.4 mg/dl (2.5-4.9); Potassium 2.7 mmol/L (3.5-5.1)
[2020-10-21 12:30] LABS: Troponin I 0.125 ng/ml (0-0.045)
[2020-10-21] MEDS ORDERED: POTASSIUM CHLORIDE PWD 20 MEQ PACK PO ONE (13:28)
[2020-10-21] MEDS: POTASSIUM CHLORIDE / WTR 10 MEQ/100 ML PLCT IV SCH ×2 (15:00→17:03)
--- NOTE | 2020-10-21 15:34 | Electrocardiogram Report ---
Test Reason : Blood Pressure : / mmHG Vent. Rate : 097 BPM Atrial Rate : 097 BPM P-R Int : 152 ms QRS Dur : 132 ms QT Int : 396 ms P-R-T Axes : 052 -44 100 degrees QTc Int : 502 ms Sinus rhythm with Premature supraventricular complexes and with occasional Premature ventricular comp lexes Left axis deviation Left bundle branch block Abnormal ECG When compared with ECG of 25-AUG-2020 19:47, Premature ventricular complexes are now Present Premature supraventricular complexes are now Present T wave amplitude has decreased in Inferior leads Confirmed by Ab Jameson ([id number]) on 10/21/2020 3:34:07 PM Referred By: REFERRED SELF Confirmed By:Ab Jameson
[2020-10-21 17:01] LABS: Hemoglobin 9.9 g/dL (12.0-16.0)
--- NOTE | 2020-10-21 17:17 | Hospitalist Progress Note ---
Date of Service October 21, 2020 Assessment & Plan (1) Acute respiratory failure with hypoxia: Plan: Patient is an 80 yr female with H/O multiple myeloma, history of deep venous thrombosis, declining any treatment, and presents with ongoing weakness and found to have anemia and also shortness of breath. Acute Respiratory Failure with Hypoxia Bilateral Pleural effusion DD: CHF, ? Exudative --CT Chest: Dilated esophagus containing gas and ingested material. Interval worsening of the left pleural effusion and occluded bronchial structures at the left lower lobe could be due to aspiration. Please correlate above-mentioned findings with prior history and clinical presentation of aspiration. Interval development of moderate right pleural effusion. Stable cardiac silhouette without significant septal thickening of the aerated portion of pulmonary parenchyma, differential diagnosis include heart failure pattern without significant interval worsening. Diffuse severe osteopenia. Multiple compression fracture deformities within thoracic spine which is worsening of the height loss of T6 and new compression fracture deformities of T4 and T12. --S/P thoracentesis : 16 mm of fawn-colored fluid was evacuated --Pleural Fluid studies suggestive of Transudative effusion -Pathology pending Follow up Cultures Continue Supplemental oxygen as needed Appreciate pulmonology and cardiology input Continue low-dose diuretics Monitor volume status, I's and O's, daily weight Aspiration precautions Weight de-escalate IV antibiotics to Augmentin Speech therapy evaluation Acute on chronic normocytic anemia Likely anemia of chronic disease Partly dilutional secondary to volume overload Denies any bleeding issues Hb: 6.2>9.9 S/P 2 units PRBCs Monitor H&H and transfuse as needed Fecal occult pending Consider GI eval if needed Anemia work-up pending Hypokalemia Hypomagnesemia Replace electrolytes as needed Mild elevation of troponin likely demand ischemia ECHO pending Denies any chest pain. CKD III Cr at around baseline Monitor renal function Avoid nephrotoxic agents as able H/O Bladder tumor S/P Surgery in January of 2019. 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 Planned for repeat cysto in 6 months Currently patient not following Palliative care consulted to address goals of care DVT Eliquis on Hold Check FOBT Resume as able Hypertension: On Norvasc, lisinopril, hydrochlorothiazide, Lopressor Monitor BP Prolonged QTC Avoid QTC prolonging meds as able Hyperlipidemia on statin Aortic stenosis S/P TAVR Continue home meds Compression fractures Pain control PT, OT when stable. Code Status DNI/DNR Admission and Anticipated Discharge Date Admission Date: October 20, 2020 Subjective Seen and examined at bedside Had thoracentesis earlier today Dyspnea much improved after thoracentesis Denies any chest pain, dizziness, nausea, abdominal pain Offers no other complaints Review of Systems Review of Systems: All systems reviewed & are unremarkable except as noted in Subjective Physical Exam Physical Exam: Physical Exam: Vitals signs as noted above General Appearance:Thin, Frail, Chronic ill appearing, Head: normocephalic, Atraumatic Eyes: normal inspection, EOMI Neck: supple, Trachea midline Respiratory/Chest: Decreased breath sounds, CTA, No accessory muscle use Cardiovascular: S1, S2, + murmur Abdomen/GI:Soft, Non tender, Bowel sounds present Extremities/Musculoskeletal:normal inspection, B/L LE edema Neurologic/Psych:AAOX3, grossly no focal neurological deficits Skin: normal color, warm Results & Data Results & Data ([facility]) Vital Signs (Past 12 Hours) Vital Signs Temp Pulse Pulse Resp BP BP BP 10/21/20 16:45 36.5 C 67 16 133/68 10/21/20 15:41 10/21/20 13:37 10/21/20 12:30 10/21/20 11:25 36.3 C L 64 14 131/76 10/21/20 11:00 36.4 C L 67 16 125/76 10/21/20 10:30 36.5 C 72 16 151/81 H 10/21/20 10:00 36.9 C 85 16 151/81 H 10/21/20 09:20 36.4 C L 90 16 139/73 10/21/20 08:55 36.6 C 87 14 132/71 10/21/20 08:28 34.7 C L 92 H 18 145/73 H 10/21/20 08:10 83 128/72 10/21/20 07:23 36.4 C L 81 12 137/64 10/21/20 07:20 36.4 C L 80 15 137/64 10/21/20 06:39 36.7 C 85 18 152/55 H 10/21/20 06:00 36.8 C 81 18 138/61 10/21/20 05:39 36.7 C 77 18 142/63 H 10/21/20 05:30 36.6 C 76 18 133/66 Pulse Ox 10/21/20 16:45 92 07/20/21 15:41 95 10/21/20 13:37 99 10/21/20 12:30 98 10/21/20 11:25 95 10/21/20 11:00 91 10/21/20 10:30 93 10/21/20 10:00 92 10/21/20 09:20 91 10/21/20 08:55 91 10/21/20 08:28 10/21/20 08:10 93 10/21/20 07:23 92 10/21/20 07:20 97 10/21/20 06:39 90 10/21/20 06:00 93 10/21/20 05:39 91 10/21/20 05:30 93 Laboratory Results Short CBC 10/20/20 10/21/20 10/21/20 Range/Units 21:09 11:39 11:39 WBC 8.00 7.52 Cancelled (4.8-10.8) K/uL Hgb 6.2 L* 10.5 L D Cancelled (12.0-16.0) g/dL Hct 19.6 L* 32.4 L Cancelled (37-47) % Plt Count 146 153 Cancelled (130-400) K/uL 10/21/20 Range/Units 16:20 WBC (4.8-10.8) K/uL Hgb 9.9 L (12.0-16.0) g/dL Hct 30.0 L (37-47) % Plt Count (130-400) K/uL BMP 10/20/20 10/21/20 21:09 11:39 Sodium 137 134 L Potassium 3.2 L 2.7 L D Chloride 107 101 Carbon Dioxide 23 23 BUN 37 H 31 H Creatinine 1.65 H 1.84 H Glucose 123 H 126 H Calcium 8.3 L 8.6 Cardiac Enzymes 10/20/20 10/21/20 10/21/20 Range/Units 21:09 11:39 11:39 Total Creatine Kinase 84 (26-192) U/L Troponin I 0.131 H* 0.125 H* Cancelled (0-0.045) ng/ml Liver Function 10/20/20 Range/Units 21:09 Total Bilirubin 0.9 (0.2-1) mg/dl AST 22 (15-37) U/L ALT 15 (12-78) U/L Alkaline Phosphatase 108 (45-117) U/L Albumin 2.7 L (3.4-5.0) gm/dl
[2020-10-21 20:49] LABS: BUN Creatinine Ratio 16.4 (10-20); Calcium 8.6 mg/dl (8.5-10.1); Creatinine Clr Calc Pharmacy 18.2 ml/min; Est GFR (African American) 28.1 ml/min; Est GFR (Non-African American) 24.3 ml/min; Potassium 3.8 mmol/L (3.5-5.1)
[2020-10-21] MEDS ORDERED: amLODIPine BESYLATE 5 MG TAB PO SCH (21:00)
[2020-10-22] MEDS: ACYCLOVIR 400 MG TAB PO SCH (06:06)
[2020-10-22 06:57] LABS: Hematocrit (blood only) 31.4 % (37-47); Hemoglobin 10.3 g/dL (12.0-16.0); Mean Corpuscular Hemoglobin 31.4 pg (25-34); Mean Corpuscular Hgb Conc 32.8 g/dL (32-36); Mean Corpuscular Volume 95.7 fL (80-100); Mean Platelet Volume 10.1 fL (7.4-10.4); Platelet Count 129 K/uL (130-400); RDW Coefficient of Variation 18.7 % (11.5-14.5); RDW Standard Deviation 63.7 fL (36.4-46.3); Red Blood Count 3.28 M/uL (4.2-5.4); White Blood Count 6.33 K/uL (4.8-10.8)
[2020-10-22 07:23] LABS: BUN Creatinine Ratio 18.1 (10-20); Calcium 8.3 mg/dl (8.5-10.1); Est GFR (African American) 33.7 ml/min; Magnesium 1.7 mg/dl (1.8-2.4); Potassium 3.5 mmol/L (3.5-5.1)
[2020-10-22] MEDS: CETIRIZINE HCL 10 MG TABLET PO SCH (10:31)
[2020-10-22] MEDS: ATORVASTATIN 40 MG TAB PO SCH (10:32)
[2020-10-22] MEDS: AMOXICILLIN/CLAVULANATE 500 MG TAB PO SCH ×2 (10:32→16:55)
[2020-10-22] MEDS: APIXABAN 2.5 MG TAB PO SCH (10:42)
[2020-10-22] MEDS: ACETAMINOPHEN 325 MG TAB PO PRN (11:16)
--- NOTE | 2020-10-22 11:23 | XRay Report ---
XR chest 1V portable CLINICAL HISTORY: Abnormal chest x-ray. Follow-up study COMPARISON STUDY: 10/21/2020 FINDINGS: The heart remains enlarged. Aortic valve prosthesis is visualized. There is radiographic ev idence of congestive failure with pulmonary edema and bilateral pleural effusions. Bilateral airspace opacities likely represent pulmonary edema although a superimposed infectious/inflammatory process c annot be excluded.[ IMPRESSION: 1. Cardiomegaly, bilateral effusions, and pulmonary edema pattern. ACT 112: Negative or not required by law. Electronically signed by: Ibrahima Song M.D. 10/22/2020 11:22 AM
[2020-10-22] MEDS ORDERED: oxyCODONE HCL IR 5 MG TAB (IMMEDIATE RELEASE) PO STA (11:25)
[2020-10-22] MEDS ORDERED: oxyCODONE HCL IR 5 MG TAB (IMMEDIATE RELEASE) ONE (11:27)
[2020-10-22] MEDS: lisinopril 10 MG TAB PO SCH (11:50)
[2020-10-22] MEDS: METOPROLOL TARTRATE 50 MG TAB PO SCH ×2 (11:50→21:59)
[2020-10-22] MEDS: FUROSEMIDE 20 MG in SYRINGE 0 ML IV SCH (11:50)
--- NOTE | 2020-10-22 12:08 | Pulmonology Progress Note ---
Date of Service October 22, 2020 Assessment & Plan (1) Acute respiratory failure with hypoxia: Plan: 80-year-old female with a history of multiple myeloma not on treatment, CHF, aortic stenosis and CKD stage III presenting to the hospital due to weakness and shortness of breath. Left pleural effusion: I performed a thoracentesis of the left pleural effusion. 560 mL of fawn-colored fluid was evacuated from the left hemithorax. Pleural fluid studies are suggestive of this being a transudative effusion likely related to acute diastolic CHF and hypoalbuminemia. Please follow-up the cytology results. She does have diastolic heart failure noted on echo. She does also have evidence of moderate mitral regurgitation, severe tricuspid regurgitation and pulmonary hypertension. Hypoxia: Likely multifactorial secondary to the above. Continue to wean oxygen to maintain saturations of 88 to 92%. Acute anemia: Primary team is managing. Likely related to multiple myeloma. This may be contributing to high-output cardiac failure. Minimal oozing noted from the thoracentesis puncture site. I do not think this is contributing to her anemia. In fact her hemoglobin is improved compared to yesterday. Severe back pain: I have ordered for a one-time dose of 5 mg oxycodone. I have also requested the nurse give her a K pad. Will defer further pain management to primary team. I do not think that the pain is related to the thoracentesis site. 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 She does have a history of thoracic spine compression fractures. Palliative care is following patient. Overall prognosis guarded. Thank you for the consultation. Will follow from the periphery. Please call with questions. (2) Bilateral pleural effusion: (3) Moderate protein-energy malnutrition: (4) Anemia: (5) Pulmonary hypertension: (6) Diastolic CHF, acute on chronic: Admission and Anticipated Discharge Date Admission Date: October 20, 2020 Subjective Patient seen and examined this morning. She is complaining of significant back and scapular pain. She continues to require 5 L of oxygen via oxygen mask. She denies any significant shortness of breath. No fevers or chills overnight. Review of Systems Review of Systems: 01/15 point ROS negative unless noted elsewhere Physical Exam Constitutional: + thin and + frail appearing Eyes: PERRL, conjunctivae normal, anicteric sclerae ENMT: external ear and nose normal, oropharynx normal Neck: normal visual inspection Respiratory: Auscultation: + diminished lung sounds Cardiovascular: Rate/Rhythm: regular rate and regular rhythm Heart Sounds: + murmur Extremities: + edema Gastrointestinal (Abdomen): normal bowel sounds, soft, nontender, no hepatosplenomegaly Musculoskeletal: Head/Neck/Chest: + limited ROM of neck Kyphoscoliotic Skin: no rashes, warm and dry (Minimal blood oozing noted from the left thoracentesis puncture site. ) Neurologic: PERRL, EOMI, accommodation nl, no face palsy, no dysarthria Psychiatric: A+Ox3, euthymic affect Results & Data Results & Data ([facility]) Vital Signs (Past 12 Hours) Vital Signs Temp Pulse Pulse Resp BP BP Pulse Ox 10/22/20 10:30 106/62 10/22/20 10:21 78 114/61 10/22/20 07:00 97.5 F L 73 22 119/75 93 vital signs, labs and imaging personally reviewed. Chest x-ray from today demonstrates continued small bilateral effusions and pulmonary edema. PG Care Time/CCT Total # of Minutes Spent Total Time Spent with Patient: Total time spent is greater than 50% in coordination of care (as documented) at patient's floor/unit and/or counseling patient: Coding Level of Care Code 58471 Subseq Hosp Care Lvl 3 Diagnoses Acute respiratory failure with hypoxia J96.01 Bilateral pleural effusion J90 Moderate protein-energy malnutrition E44.0 Anemia D64.9 Pulmonary hypertension I27.20 Diastolic CHF, acute on chronic I50.33
--- NOTE | 2020-10-22 15:55 | Cardiology Progress Note ---
Date of Service October 22, 2020 Assessment & Plan (1) Diastolic CHF, acute on chronic: (2) History of transcatheter aortic valve replacement (TAVR): Plan: Hgb stable at 10.3 g.dl Creatinine 1.63. K 3.5 Continue furosemide 20 mg IV BID, supplement K. Prognosis is poor. Admission and Anticipated Discharge Date Admission Date: October 20, 2020 Subjective Pt seen in cardiology follow up. Work of breathing improved compared to yesterday. Frail in appearance. Physical Exam Physical Exam: Temp Pulse Resp BP Pulse Ox 36.5 C 78 18 94/56 L 97 10/22/20 15:07 10/22/20 15:07 10/22/20 15:07 10/22/20 15:44 10/22/20 15:07 Constitutional: + ill appearing and + cachectic Respiratory: Auscultation: + diminished lung sounds (decreased BS at the bases ) Musculoskeletal: Spine: + kyphosis Neurologic: conversant . Results & Data ([facility]) Vital Signs (Past 12 Hours) Vital Signs Temp Pulse Pulse Resp BP BP Pulse Ox 10/22/20 15:44 94/56 L 10/22/20 15:07 36.5 C 78 18 90/59 L 97 10/22/20 13:43 10/22/20 10:30 106/62 10/22/20 10:21 78 114/61 10/22/20 07:00 36.4 C L 73 22 119/75 93 Pulse Ox Pulse Ox Pulse Ox 10/22/20 15:44 10/22/20 15:07 10/22/20 13:43 95 91 70 L 10/22/20 10:30 10/22/20 10:21 10/22/20 07:00 Laboratory Results CBC 10/21/20 10/22/20 Range/Units 16:20 06:33 WBC 6.33 (4.8-10.8) K/uL RBC 3.28 L (4.2-5.4) M/uL Hgb 9.9 L 10.3 L (12.0-16.0) g/dL Hct 30.0 L 31.4 L (37-47) % Plt Count 129 L (130-400) K/uL Comprehensive Metabolic Panel 10/21/20 10/22/20 Range/Units 20:01 06:33 Sodium 132 L 132 L (136-145) mmol/L Potassium 3.8 D 3.5 (3.5-5.1) mmol/L Chloride 102 100 (98-107) mmol/L Carbon Dioxide 25 28 (21-32) mmol/L BUN 31 H 29 H (7-18) mg/dl Creatinine 1.89 H 1.63 H (0.6-1.2) mg/dl Glucose 112 H 96 (70-99) mg/dl Calcium 8.6 8.3 L (8.5-10.1) mg/dl Intake and Output 10/22/20 10/22/20 10/22/20 06:59 14:59 22:59 Other: # Unmeasured Voids 1
--- NOTE | 2020-10-22 16:07 | Electrocardiogram Report ---
Test Reason : Blood Pressure : / mmHG Vent. Rate : 068 BPM Atrial Rate : 068 BPM P-R Int : 148 ms QRS Dur : 130 ms QT Int : 474 ms P-R-T Axes : 060 -41 082 degrees QTc Int : 504 ms Normal sinus rhythm Left axis deviation Left bundle branch block Abnormal ECG When compared with ECG of 20-OCT-2020 20:54, Premature ventricular complexes are no longer Present Premature supraventricular complexes are no longer Present Confirmed by Ab Jameson ([id number]) on 10/22/2020 4:07:06 PM Referred By: REFERRED SELF Confirmed By:Ab Jameson
[2020-10-22] MEDS: POTASSIUM CHLORIDE 20 MEQ/15 ML UDC PO SCH (16:55)
--- NOTE | 2020-10-22 18:12 | Hospitalist Progress Note ---
Date of Service October 22, 2020 Assessment & Plan (1) Acute respiratory failure with hypoxia: Plan: Patient is an 80 yr female with H/O multiple myeloma, history of deep venous thrombosis, declining any treatment, and presents with ongoing weakness and found to have anemia and also shortness of breath. Acute Respiratory Failure with Hypoxia Bilateral Pleural effusion DD: CHF, ? Exudative --CT Chest: Dilated esophagus containing gas and ingested material. Interval worsening of the left pleural effusion and occluded bronchial structures at the left lower lobe could be due to aspiration. Please correlate above-mentioned findings with prior history and clinical presentation of aspiration. Interval development of moderate right pleural effusion. Stable cardiac silhouette without significant septal thickening of the aerated portion of pulmonary parenchyma, differential diagnosis include heart failure pattern without significant interval worsening. Diffuse severe osteopenia. Multiple compression fracture deformities within thoracic spine which is worsening of the height loss of T6 and new compression fracture deformities of T4 and T12. --S/P thoracentesis : 560 mL of fawn-colored fluid was evacuated --Transudative fluid likely secondary to CHF -Pathology pending Follow up Cultures Continue Supplemental oxygen as needed Appreciate pulmonology and cardiology input Continue low-dose diuretics Aspiration precautions Weight de-escalate IV antibiotics to Augmentin Acute on chronic normocytic anemia Likely anemia of chronic disease Partly dilutional secondary to volume overload Denies any bleeding issues Hb: 6.2>9.9 S/P 2 units PRBCs Hemoglobin went up to 10.3 as of 10/22/2020 Hypokalemia Hypomagnesemia Replace electrolytes as needed Mild elevation of troponin likely demand ischemia ECHO : LV wall motion is normal, EF 60 to 65%, RV is normal in size and function, moderate MR, moderate to severe TR, severe pulmonary hypertension, prosthetic valve is not well-visualized. Grade 1 diastolic dysfunction Denies any chest pain. CKD III Cr at around baseline Monitor renal function Avoid nephrotoxic agents as able H/O Bladder tumor S/P Surgery in January of 2019. 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 Planned for repeat cysto in 6 months Currently patient not following Palliative care consulted to address goals of care DVT Eliquis on Hold Check FOBT Resume as able Hypertension: On Norvasc, lisinopril, hydrochlorothiazide, Lopressor Monitor BP -blood pressure remains low at 94/56 Will discontinue amlodipine Prolonged QTC Avoid QTC prolonging meds as able Hyperlipidemia on statin Aortic stenosis S/P TAVR Continue home meds Compression fractures Pain control PT, OT when stable. Code Status DNI/DNR Prognosis remains poor Admission and Anticipated Discharge Date Admission Date: October 20, 2020 Subjective 10/22/2020 The patient was seen and examined in medical floor Has been complaining of some back discomfort Breathing is better but remains generally very weak and lethargic Review of Systems Review of Systems: All systems reviewed and are unremarkable except as noted below Respiratory: + dyspnea (Minimal dyspnea at rest) Neurologic: + generalized weakness Physical Exam Physical Exam: Lying in bed comfortably Constitutional: + ill appearing Eyes: PERRL, conjunctivae normal, anicteric sclerae Neck: trachea midline, no thyromegaly Respiratory: + respiratory distress (Minimal distress at rest) Auscultation: + diminished lung sounds and + crackles (Bibasilar crackles) Cardiovascular: Rate/Rhythm: regular rate and regular rhythm Gastrointestinal (Abdomen): normal bowel sounds, soft, nontender, no hepatosplenomegaly Neurologic: moves all extremities and + confused (Pleasantly confused) Results & Data Results & Data ([facility]) Vital Signs (Past 12 Hours) Vital Signs Temp Pulse Pulse Resp BP BP Pulse Ox 10/22/20 15:44 94/56 L 10/22/20 15:07 36.5 C 78 18 90/59 L 97 10/22/20 13:43 10/22/20 10:30 106/62 10/22/20 10:21 78 114/61 10/22/20 07:00 36.4 C L 73 22 119/75 93 Pulse Ox Pulse Ox Pulse Ox 10/22/20 15:44 10/22/20 15:07 10/22/20 13:43 95 91 70 L 10/22/20 10:30 10/22/20 10:21 10/22/20 07:00 Laboratory Results Short CBC 10/22/20 Range/Units 06:33 WBC 6.33 (4.8-10.8) K/uL Hgb 10.3 L (12.0-16.0) g/dL Hct 31.4 L (37-47) % Plt Count 129 L (130-400) K/uL BMP 10/21/20 10/22/20 20:01 06:33 Sodium 132 L 132 L Potassium 3.8 D 3.5 Chloride 102 100 Carbon Dioxide 25 28 BUN 31 H 29 H Creatinine 1.89 H 1.63 H Glucose 112 H 96 Calcium 8.6 8.3 L Medications Administered Current Inpatient Medications Acetaminophen (Acetaminophen 325 Mg Tab) 650 mg PO Q4H PRN PRN Reason: Pain or Fever Stop: 11/20/20 02:24 Last Admin: 10/22/20 11:16 Dose: 650 mg Documented by: Acyclovir (Acyclovir 400 Mg Tab) 400 mg PO DAILYBB [facility] Stop: 11/20/20 06:29 Last Admin: 10/22/20 06:06 Dose: 400 mg Documented by: Amlodipine Besylate (Amlodipine Besylate 5 Mg Tab) 10 mg PO HS [facility] Stop: 11/20/20 20:59 Last Admin: 10/21/20 20:01 Dose: 10 mg Documented by: Amoxicillin/Clavulanate Potassium (Amoxicillin/Clavulanate 500 Mg Tab) 1 tab PO BIDM [facility] Stop: 10/29/20 07:59 Last Admin: 10/22/20 16:55 Dose: 1 tab Documented by: Apixaban (Apixaban 2.5 Mg Tab) 2.5 mg PO BID [facility] Stop: 11/20/20 08:59 Last Admin: 10/22/20 10:42 Dose: Not Given Documented by: Atorvastatin Calcium (Atorvastatin 40 Mg Tab) 80 mg PO QAM [facility] Stop: 11/20/20 08:59 Last Admin: 10/22/20 10:32 Dose: 80 mg Documented by: Cetirizine HCl (Cetirizine Hcl 10 Mg Tablet) 5 mg PO DAILY [facility] Stop: 11/20/20 08:59 Last Admin: 10/22/20 10:31 Dose: 5 mg Documented by: Hydrochlorothiazide (Hydrochlorothiazide 25 Mg Tab) 25 mg PO QAM [facility] Stop: 11/20/20 08:59 Last Admin: 10/21/20 08:13 Dose: 25 mg Documented by: Sodium Chloride (Nss) 250 mls @ 15 mls/hr IV .[id number] PRN PRN Reason: For Transfusion Stop: 11/20/20 02:24 Furosemide 20 mg/ Syringe 2 mls @ 4 mls/min IV DAILY [facility] Stop: 11/21/20 08:59 Last Admin: 10/22/20 11:50 Dose: Not Given Documented by: Lisinopril (Lisinopril 10 Mg Tab) 10 mg PO QAM [facility] Stop: 11/20/20 08:59 Last Admin: 10/22/20 11:50 Dose: Not Given Documented by: Metoprolol Tartrate (Metoprolol Tartrate 50 Mg Tab) 50 mg PO BID [facility] Stop: 11/20/20 08:59 Last Admin: 10/22/20 11:50 Dose: Not Given Documented by: Nitroglycerin (Nitroglycerin Sl 0.4 Mg/Tab Tab) 0.4 mg SL UD PRN PRN Reason: Chest Pain Stop: 11/20/20 02:24 Polyethylene Glycol (Polyethylene (Miralax) 17 Gm Pack) 17 gm PO DAILY PRN PRN Reason: Constipation Stop: 11/20/20 02:24 Potassium Chloride (Potassium Chloride 20 Meq/15 Ml Udc) [facility]: 11/21/20 15:59 Last Admin: 10/22/20 16:55 Dose: 20 meq Documented by:
[2020-10-23] MEDS: ACYCLOVIR 400 MG TAB PO SCH (06:03)
[2020-10-23 06:38] LABS: Basophils # (auto) 0.02 K/uL (0-0.2); Basophils % (auto) 0.4 %; Eosinophils # (auto) 0.11 K/uL (0-0.5); Eosinophils % (auto) 2.4 %; Hematocrit (blood only) 29.5 % (37-47); Hemoglobin 9.4 g/dL (12.0-16.0); Immature Granulocytes # (auto) 0.02 K/uL (0.00-0.02); Immature Granulocytes % (auto) 0.4 %; Lymphocytes # (auto) 0.71 K/uL (1.2-3.4); Lymphocytes % (auto) 15.7 %; Mean Corpuscular Hemoglobin 31.1 pg (25-34); Mean Corpuscular Hgb Conc 31.9 g/dL (32-36); Mean Corpuscular Volume 97.7 fL (80-100); Mean Platelet Volume 9.6 fL (7.4-10.4); Monocytes # (auto) 0.84 K/uL (0.11-0.59); Monocytes % (auto) 18.5 %; Neutrophils # (auto) 2.83 K/uL (1.4-6.5); Neutrophils % (auto) 62.6 %; Platelet Count 101 K/uL (130-400); RDW Coefficient of Variation 18.3 % (11.5-14.5); RDW Standard Deviation 64.4 fL (36.4-46.3); Red Blood Count 3.02 M/uL (4.2-5.4); White Blood Count 4.53 K/uL (4.8-10.8)
[2020-10-23 07:04] LABS: Magnesium 1.6 mg/dl (1.8-2.4); Potassium 3.7 mmol/L (3.5-5.1)
[2020-10-23 07:14] LABS: Creatinine Clr Calc Pharmacy 16.7 ml/min
[2020-10-23 07:16] LABS: BUN Creatinine Ratio 17.4 (10-20); Calcium 8.4 mg/dl (8.5-10.1); Est GFR (African American) 24.6 ml/min; Est GFR (Non-African American) 21.3 ml/min; Phosphorus 3.6 mg/dl (2.5-4.9)
[2020-10-23] MEDS: AMOXICILLIN/CLAVULANATE 500 MG TAB PO SCH ×2 (09:30→17:01)
[2020-10-23] MEDS: ATORVASTATIN 40 MG TAB PO SCH (09:30)
[2020-10-23] MEDS: CETIRIZINE HCL 10 MG TABLET PO SCH (09:31)
[2020-10-23] MEDS: lisinopril 10 MG TAB PO SCH (09:35)
[2020-10-23] MEDS: METOPROLOL TARTRATE 50 MG TAB PO SCH ×2 (09:35→20:14)
[2020-10-23] MEDS: POTASSIUM CHLORIDE 20 MEQ/15 ML UDC PO SCH (10:29)
[2020-10-23] MEDS: FUROSEMIDE 20 MG in SYRINGE 0 ML IV SCH (10:29)
[2020-10-23] MEDS: ACETAMINOPHEN 325 MG TAB PO PRN (14:03)
--- NOTE | 2020-10-23 18:11 | Communication Note ---
Date of Service: October 23, 2020 Creatinine has trended up to 2.1. We will hold tomorrow's dose of Lasix pending results of repeat chemistry panel tomorrow.
--- NOTE | 2020-10-23 18:47 | Hospitalist Progress Note ---
Date of Service October 23, 2020 Assessment & Plan (1) Acute respiratory failure with hypoxia: Plan: Patient is an 80 yr female with H/O multiple myeloma, history of deep venous thrombosis, declining any treatment, and presents with ongoing weakness and found to have anemia and also shortness of breath. Acute Respiratory Failure with Hypoxia Bilateral Pleural effusion DD: CHF, ? Exudative --CT Chest: Dilated esophagus containing gas and ingested material. Interval worsening of the left pleural effusion and occluded bronchial structures at the left lower lobe could be due to aspiration. Please correlate above-mentioned findings with prior history and clinical presentation of aspiration. Interval development of moderate right pleural effusion. Stable cardiac silhouette without significant septal thickening of the aerated portion of pulmonary parenchyma, differential diagnosis include heart failure pattern without significant interval worsening. Diffuse severe osteopenia. Multiple compression fracture deformities within thoracic spine which is worsening of the height loss of T6 and new compression fracture deformities of T4 and T12. --S/P thoracentesis : 560 mL of fawn-colored fluid was evacuated --Transudative fluid likely secondary to CHF -Pathology pending Follow up Cultures Continue Supplemental oxygen as needed Appreciate pulmonology and cardiology input Continue low-dose diuretics Aspiration precautions Will de-escalate IV antibiotics to Augmentin Feeling much better and denies any respiratory symptoms at rest Acute on chronic normocytic anemia Likely anemia of chronic disease Partly dilutional secondary to volume overload Denies any bleeding issues Hb: 6.2>9.9 S/P 2 units PRBCs Hemoglobin went up to 10.3 as of 10/22/2020 Hemoglobin remained stable at 9.4 today Hypokalemia Hypomagnesemia Replace electrolytes as needed Mild elevation of troponin likely demand ischemia ECHO : LV wall motion is normal, EF 60 to 65%, RV is normal in size and function, moderate MR, moderate to severe TR, severe pulmonary hypertension, prosthetic valve is not well-visualized. Grade 1 diastolic dysfunction Denies any chest pain or palpitation and shortness of breath CKD III Cr at around baseline Monitor renal function Avoid nephrotoxic agents as able H/O Bladder tumor S/P Surgery in January of 2019. 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 Planned for repeat cysto in 6 months Currently patient not following Palliative care consulted to address goals of care Awaiting transfer [facility] to a [facility] DVT Eliquis on Hold Check FOBT Resume as able Hypertension: On Norvasc, lisinopril, hydrochlorothiazide, Lopressor Monitor BP -blood pressure remains low at 94/56 Will discontinue amlodipine Prolonged QTC Avoid QTC prolonging meds as able Hyperlipidemia on statin Aortic stenosis S/P TAVR Continue home meds Compression fractures Pain control PT, OT when stable. Code Status DNI/DNR Prognosis remains poor Admission and Anticipated Discharge Date Admission Date: October 20, 2020 Subjective 10/22/2020 The patient was seen and examined in medical floor Has been complaining of some back discomfort Breathing is better but remains generally very weak and lethargic 10/23/2020 The patient was seen and examined in medical floor She has been at her best today Denies any symptoms and remains stable in bed Review of Systems Review of Systems: All systems reviewed and are unremarkable except as noted below Respiratory: no dyspnea (Minimal dyspnea at rest) Neurologic: + generalized weakness Physical Exam Physical Exam: Lying in bed comfortably Constitutional: + ill appearing Eyes: PERRL, conjunctivae normal, anicteric sclerae Neck: trachea midline, no thyromegaly Respiratory: + respiratory distress (Minimal distress at rest) Auscultation: + diminished lung sounds and + crackles (Bibasilar crackles) Cardiovascular: Rate/Rhythm: regular rate and regular rhythm Gastrointestinal (Abdomen): normal bowel sounds, soft, nontender, no hepatosplenomegaly Musculoskeletal: No acute arthritis in any joint Neurologic: moves all extremities; not confused (Pleasantly confused) Results & Data Results & Data ([facility]) Vital Signs (Past 12 Hours) Vital Signs Temp Pulse Resp BP BP Pulse Ox 10/23/20 17:06 96 10/23/20 15:32 37.4 C 77 20 106/63 94 10/23/20 14:00 97 10/23/20 09:33 77 16 107/57 L 94 10/23/20 08:09 99 10/23/20 07:00 36.8 C 62 20 118/60 100 Laboratory Results Short CBC 10/23/20 Range/Units 05:49 WBC 4.53 L (4.8-10.8) K/uL Hgb 9.4 L (12.0-16.0) g/dL Hct 29.5 L (37-47) % Plt Count 101 L (130-400) K/uL BMP 10/23/20 05:49 Sodium 133 L Potassium 3.7 Chloride 103 Carbon Dioxide 25 BUN 37 H Creatinine 2.11 H D Glucose 87 Calcium 8.4 L Medications Administered Current Inpatient Medications Acetaminophen (Acetaminophen 325 Mg Tab) 650 mg PO Q4H PRN PRN Reason: Pain or Fever Stop: 11/20/20 02:24 Last Admin: 10/23/20 14:03 Dose: 650 mg Documented by: Acyclovir (Acyclovir 400 Mg Tab) 400 mg PO DAILYBB [facility] Stop: 11/20/20 06:29 Last Admin: 10/23/20 06:03 Dose: 400 mg Documented by: Amlodipine Besylate (Amlodipine Besylate 5 Mg Tab) 10 mg PO HS [facility] Stop: 11/20/20 20:59 Last Admin: 10/21/20 20:01 Dose: 10 mg Documented by: Amoxicillin/Clavulanate Potassium (Amoxicillin/Clavulanate 500 Mg Tab) 1 tab PO BIDM [facility] Stop: 10/29/20 07:59 Last Admin: 10/23/20 17:01 Dose: 1 tab Documented by: Apixaban (Apixaban 2.5 Mg Tab) 2.5 mg PO BID [facility] Stop: 11/20/20 08:59 Last Admin: 10/22/20 10:42 Dose: Not Given Documented by: Atorvastatin Calcium (Atorvastatin 40 Mg Tab) 80 mg PO QAM [facility] Stop: 11/20/20 08:59 Last Admin: 10/23/20 09:30 Dose: 80 mg Documented by: Cetirizine HCl (Cetirizine Hcl 10 Mg Tablet) 5 mg PO DAILY [facility] Stop: 11/20/20 08:59 Last Admin: 10/23/20 09:31 Dose: 5 mg Documented by: Hydrochlorothiazide (Hydrochlorothiazide 25 Mg Tab) 25 mg PO QAM [facility] Stop: 11/20/20 08:59 Last Admin: 10/21/20 08:13 Dose: 25 mg Documented by: Sodium Chloride (Nss) 250 mls @ 15 mls/hr IV .[id number] PRN PRN Reason: For Transfusion Stop: 11/20/20 02:24 Furosemide 20 mg/ Syringe 2 mls @ 4 mls/min IV DAILY [facility] Stop: 11/21/20 08:59 Last Admin: 10/23/20 10:29 Dose: 4 mls/min Documented by: Lisinopril (Lisinopril 10 Mg Tab) 10 mg PO QAM [facility] Stop: 11/20/20 08:59 Last Admin: 10/23/20 09:35 Dose: 10 mg Documented by: Metoprolol Tartrate (Metoprolol Tartrate 50 Mg Tab) 50 mg PO BID [facility] Stop: 11/20/20 08:59 Last Admin: 10/23/20 09:35 Dose: 50 mg Documented by: Nitroglycerin (Nitroglycerin Sl 0.4 Mg/Tab Tab) 0.4 mg SL UD PRN PRN Reason: Chest Pain Stop: 11/20/20 02:24 Polyethylene Glycol (Polyethylene (Miralax) 17 Gm Pack) 17 gm PO DAILY PRN PRN Reason: Constipation Stop: 11/20/20 02:24 Potassium Chloride (Potassium Chloride 20 Meq/15 Ml Udc) 20 meq PO QAM [facility] Stop: 11/21/20 15:59 Last Admin: 10/23/20 10:29 Dose: 20 meq Documented by:
[2020-10-24] MEDS: ACYCLOVIR 400 MG TAB PO SCH (06:28)
[2020-10-24 06:42] LABS: Basophils # (auto) 0.01 K/uL (0-0.2); Basophils % (auto) 0.2 %; Eosinophils # (auto) 0.15 K/uL (0-0.5); Eosinophils % (auto) 3.6 %; Hematocrit (blood only) 27.5 % (37-47); Hemoglobin 8.7 g/dL (12.0-16.0); Immature Granulocytes # (auto) 0.07 K/uL (0.00-0.02); Immature Granulocytes % (auto) 1.7 %; Lymphocytes # (auto) 0.64 K/uL (1.2-3.4); Lymphocytes % (auto) 15.2 %; Mean Corpuscular Hemoglobin 31.2 pg (25-34); Mean Corpuscular Hgb Conc 31.6 g/dL (32-36); Mean Corpuscular Volume 98.6 fL (80-100); Mean Platelet Volume 9.8 fL (7.4-10.4); Monocytes # (auto) 0.71 K/uL (0.11-0.59); Monocytes % (auto) 16.9 %; Neutrophils # (auto) 2.62 K/uL (1.4-6.5); Neutrophils % (auto) 62.4 %; Platelet Count 108 K/uL (130-400); RDW Coefficient of Variation 17.9 % (11.5-14.5); RDW Standard Deviation 63.1 fL (36.4-46.3); Red Blood Count 2.79 M/uL (4.2-5.4)
[2020-10-24 07:08] LABS: BUN Creatinine Ratio 23.5 (10-20); Creatinine Clr Calc Pharmacy 19.6 ml/min; Est GFR (African American) 30.9 ml/min; Est GFR (Non-African American) 26.7 ml/min
[2020-10-24] MEDS: CETIRIZINE HCL 10 MG TABLET PO SCH (08:14)
[2020-10-24] MEDS: METOPROLOL TARTRATE 50 MG TAB PO SCH ×2 (08:14→20:24)
[2020-10-24] MEDS: lisinopril 10 MG TAB PO SCH (08:14)
[2020-10-24] MEDS: ATORVASTATIN 40 MG TAB PO SCH (08:14)
[2020-10-24] MEDS: POTASSIUM CHLORIDE 20 MEQ/15 ML UDC PO SCH (08:14)
[2020-10-24] MEDS: AMOXICILLIN/CLAVULANATE 500 MG TAB PO SCH ×2 (08:14→17:14)
[2020-10-24] MEDS: LIDOCAINE 5% 1 PATCH TD SCH (13:16)
--- NOTE | 2020-10-24 15:15 | Hospitalist Progress Note ---
Date of Service October 24, 2020 Assessment & Plan (1) Acute respiratory failure with hypoxia: Plan: Patient is an 80 yr female with H/O multiple myeloma, history of deep venous thrombosis, declining any treatment, and presents with ongoing weakness and found to have anemia and also shortness of breath. Acute Respiratory Failure with Hypoxia Bilateral Pleural effusion DD: CHF, ? Exudative --CT Chest: Dilated esophagus containing gas and ingested material. Interval worsening of the left pleural effusion and occluded bronchial structures at the left lower lobe could be due to aspiration. Please correlate above-mentioned findings with prior history and clinical presentation of aspiration. Interval development of moderate right pleural effusion. Stable cardiac silhouette without significant septal thickening of the aerated portion of pulmonary parenchyma, differential diagnosis include heart failure pattern without significant interval worsening. Diffuse severe osteopenia. Multiple compression fracture deformities within thoracic spine which is worsening of the height loss of T6 and new compression fracture deformities of T4 and T12. --S/P thoracentesis : 560 mL of fawn-colored fluid was evacuated --Transudative fluid likely secondary to CHF -Pathology pending Follow up Cultures-negative so far Continue Supplemental oxygen as needed Appreciate pulmonology and cardiology input Continue low-dose diuretics Aspiration precautions Will de-escalate IV antibiotics to Augmentin Remains stable Acute on chronic normocytic anemia Likely anemia of chronic disease Partly dilutional secondary to volume overload Denies any bleeding issues Hb: 6.2>9.9 S/P 2 units PRBCs Hemoglobin went up to 10.3 as of 10/22/2020 Hemoglobin remained stable at 8.7 on 10/24/2020 Hypokalemia Hypomagnesemia Replace electrolytes as needed Mild elevation of troponin likely demand ischemia ECHO : LV wall motion is normal, EF 60 to 65%, RV is normal in size and function, moderate MR, moderate to severe TR, severe pulmonary hypertension, prosthetic valve is not well-visualized. Grade 1 diastolic dysfunction Denies any chest pain or palpitation and shortness of breath CKD III Cr at around baseline Monitor renal function Avoid nephrotoxic agents as able H/O Bladder tumor S/P Surgery in January of 2019. 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 Planned for repeat cysto in 6 months Currently patient not following Palliative care consulted to address goals of care Awaiting transfer to go to a shelter DVT Eliquis on Hold Check FOBT Resume as able Hypertension: On Norvasc, lisinopril, hydrochlorothiazide, Lopressor Monitor BP -blood pressure remains low at 94/56 Will discontinue amlodipine Prolonged QTC Avoid QTC prolonging meds as able Hyperlipidemia on statin Aortic stenosis S/P TAVR Continue home meds Compression fractures Pain control PT, OT when stable. Code Status DNI/DNR Prognosis remains poor Medically stable to be discharged Admission and Anticipated Discharge Date Admission Date: October 20, 2020 Subjective 10/22/2020 The patient was seen and examined in medical floor Has been complaining of some back discomfort Breathing is better but remains generally very weak and lethargic 10/23/2020 The patient was seen and examined in medical floor She has been at her best today Denies any symptoms and remains stable in bed 10/24/2020 The patient was seen and examined in medical floor She is out of bed on a chair and denies any significant symptoms Denies any more shortness of breath or any back pain She has been getting physical therapy and doing much better with it Awaiting placement Review of Systems Review of Systems: All systems reviewed and are unremarkable except as noted below Respiratory: no dyspnea (Minimal dyspnea at rest) Neurologic: + generalized weakness Physical Exam Physical Exam: Sitting on a chair without any acute distress Constitutional: + ill appearing Eyes: PERRL, conjunctivae normal, anicteric sclerae Neck: trachea midline, no thyromegaly Respiratory: no respiratory distress (Minimal distress at rest) Auscultation: + diminished lung sounds and + crackles (Bibasilar crackles) Cardiovascular: Rate/Rhythm: regular rate and regular rhythm Gastrointestinal (Abdomen): normal bowel sounds, soft, nontender, no hepatosplenomegaly Neurologic: moves all extremities; not confused (Pleasantly confused) Lymphatic: no cervical or axillary lymphadenopathy Results & Data Results & Data ([facility]) Vital Signs (Past 12 Hours) Vital Signs Temp Pulse Pulse Resp BP Pulse Ox 10/24/20 08:06 77 123/60 10/24/20 07:01 37.3 C 74 16 133/69 95 Laboratory Results Short CBC 10/24/20 Range/Units 05:44 WBC 4.20 L (4.8-10.8) K/uL Hgb 8.7 L (12.0-16.0) g/dL Hct 27.5 L (37-47) % Plt Count 108 L (130-400) K/uL BMP 10/24/20 05:44 Sodium 133 L Potassium 4.0 Chloride 103 Carbon Dioxide 26 BUN 41 H Creatinine 1.75 H D Glucose 101 H Calcium 8.0 L Medications Administered Current Inpatient Medications Acetaminophen (Acetaminophen 325 Mg Tab) 650 mg PO Q4H PRN PRN Reason: Pain or Fever Stop: 11/20/20 02:24 Last Admin: 10/23/20 14:03 Dose: 650 mg Documented by: Acyclovir (Acyclovir 400 Mg Tab) 400 mg PO DAILYBB [facility] Stop: 11/20/20 06:29 Last Admin: 10/24/20 06:28 Dose: 400 mg Documented by: Amlodipine Besylate (Amlodipine Besylate 5 Mg Tab) 10 mg PO HS [facility] Stop: 11/20/20 20:59 Last Admin: 10/21/20 20:01 Dose: 10 mg Documented by: Amoxicillin/Clavulanate Potassium (Amoxicillin/Clavulanate 500 Mg Tab) 1 tab PO BIDM [facility] Stop: 10/29/20 07:59 Last Admin: 10/24/20 08:14 Dose: 1 tab Documented by: Apixaban (Apixaban 2.5 Mg Tab) 2.5 mg PO BID [facility] Stop: 11/20/20 08:59 Last Admin: 10/22/20 10:42 Dose: Not Given Documented by: Atorvastatin Calcium (Atorvastatin 40 Mg Tab) 80 mg PO QAM [facility] Stop: 11/20/20 08:59 Last Admin: 10/24/20 08:14 Dose: 80 mg Documented by: Cetirizine HCl (Cetirizine Hcl 10 Mg Tablet) 5 mg PO DAILY [facility] Stop: 11/20/20 08:59 Last Admin: 10/24/20 08:14 Dose: 5 mg Documented by: Hydrochlorothiazide (Hydrochlorothiazide 25 Mg Tab) 25 mg PO QAM [facility] Stop: 11/20/20 08:59 Last Admin: 10/21/20 08:13 Dose: 25 mg Documented by: Sodium Chloride (Nss) 250 mls @ 15 mls/hr IV .[id number] PRN PRN Reason: For Transfusion Stop: 11/20/20 02:24 Furosemide 20 mg/ Syringe 2 mls @ 4 mls/min IV DAILY [facility] Stop: 11/21/20 08:59 Last Admin: 10/23/20 10:29 Dose: 4 mls/min Documented by: Lidocaine (Lidocaine 5% 1 Patch) 1 patch TD QAM [facility] Stop: 11/23/20 12:50 Last Admin: 10/24/20 13:16 Dose: 1 patch Documented by: Lisinopril (Lisinopril 10 Mg Tab) 10 mg PO QAM [facility] Stop: 11/20/20 08:59 Last Admin: 10/24/20 08:14 Dose: 10 mg Documented by: Metoprolol Tartrate (Metoprolol Tartrate 50 Mg Tab) 50 mg PO BID [facility] Stop: 11/20/20 08:59 Last Admin: 10/24/20 08:14 Dose: 50 mg Documented by: Miscellaneous (Remove Lidoderm Patch) 1 ea N/A DAILY@2100 [facility] Stop: 11/23/20 20:59 Nitroglycerin (Nitroglycerin Sl 0.4 Mg/Tab Tab) 0.4 mg SL UD PRN PRN Reason: Chest Pain Stop: 11/20/20 02:24 Polyethylene Glycol (Polyethylene (Miralax) 17 Gm Pack) 17 gm PO DAILY PRN PRN Reason: Constipation Stop: 11/20/20 02:24 Potassium Chloride (Potassium Chloride 20 Meq/15 Ml Udc) 20 meq PO [facility] Stop: 11/21/20 15:59 Last Admin: 10/24/20 08:14 Dose: 20 meq Documented by:
--- NOTE | 2020-10-24 18:43 | Cardiology Progress Note ---
Date of Service October 24, 2020 Assessment & Plan (1) Diastolic CHF, acute on chronic: (2) History of transcatheter aortic valve replacement (TAVR): Plan: Resume furosemide 20 mg daily. Agree with discontinuation of antibiotics. Continue Eliquis. Prognosis is poor. Admission and Anticipated Discharge Date Admission Date: October 20, 2020 Subjective Patient seen in cardiology follow up. She is awake and conversant. Participated in PT today. Physical Exam Physical Exam: Temp Pulse Resp BP Pulse Ox 36.5 C 78 18 94/56 L 97 10/22/20 15:07 10/22/20 15:07 10/22/20 15:07 10/22/20 15:44 10/22/20 15:07 Constitutional: + ill appearing and + cachectic Respiratory: Auscultation: + diminished lung sounds (decreased BS at the bases ) Musculoskeletal: Spine: + kyphosis Results & Data ([facility]) Vital Signs (Past 12 Hours) Vital Signs Temp Pulse Pulse Resp BP BP Pulse Ox 10/24/20 16:15 36.9 C 74 16 147/70 H 93 10/24/20 08:06 77 123/60 10/24/20 07:01 37.3 C 74 16 133/69 95
[2020-10-25] MEDS: ACYCLOVIR 400 MG TAB PO SCH (06:29)
[2020-10-25] MEDS ORDERED: SODIUM CHLORIDE 0.65% NA SOLN 45 ML (OCEAN) ONE (06:33)
[2020-10-25] MEDS: METOPROLOL TARTRATE 50 MG TAB PO SCH ×2 (09:47→20:21)
[2020-10-25] MEDS: AMOXICILLIN/CLAVULANATE 500 MG TAB PO SCH ×2 (09:47→16:59)
[2020-10-25] MEDS: LIDOCAINE 5% 1 PATCH TD SCH (09:47)
[2020-10-25] MEDS: CETIRIZINE HCL 10 MG TABLET PO SCH (09:48)
[2020-10-25] MEDS: lisinopril 10 MG TAB PO SCH (09:48)
[2020-10-25] MEDS: ATORVASTATIN 40 MG TAB PO SCH (09:48)
[2020-10-25] MEDS: POTASSIUM CHLORIDE 20 MEQ/15 ML UDC PO SCH (09:49)
[2020-10-25] MEDS: FUROSEMIDE 20 MG in SYRINGE 0 ML IV SCH (09:49)
--- NOTE | 2020-10-25 15:08 | Hospitalist Progress Note ---
Date of Service October 25, 2020 Assessment & Plan (1) Acute respiratory failure with hypoxia: Plan: Patient is an 80 yr female with H/O multiple myeloma, history of deep venous thrombosis, declining any treatment, and presents with ongoing weakness and found to have anemia and also shortness of breath. Acute Respiratory Failure with Hypoxia Bilateral Pleural effusion DD: CHF, ? Exudative --CT Chest: Dilated esophagus containing gas and ingested material. Interval worsening of the left pleural effusion and occluded bronchial structures at the left lower lobe could be due to aspiration. Please correlate above-mentioned findings with prior history and clinical presentation of aspiration. Interval development of moderate right pleural effusion. Stable cardiac silhouette without significant septal thickening of the aerated portion of pulmonary parenchyma, differential diagnosis include heart failure pattern without significant interval worsening. Diffuse severe osteopenia. Multiple compression fracture deformities within thoracic spine which is worsening of the height loss of T6 and new compression fracture deformities of T4 and T12. --S/P thoracentesis : 560 mL of fawn-colored fluid was evacuated --Transudative fluid likely secondary to CHF -Pathology pending Follow up Cultures-negative so far Continue Supplemental oxygen as needed Appreciate pulmonology and cardiology input Continue low-dose diuretics Aspiration precautions Will de-escalate IV antibiotics to Augmentin Remains stable-awaiting placement Acute on chronic normocytic anemia Likely anemia of chronic disease Partly dilutional secondary to volume overload Denies any bleeding issues Hb: 6.2>9.9 S/P 2 units PRBCs Hemoglobin went up to 10.3 as of 10/22/2020 Hemoglobin remained stable at 8.7 on 10/24/2020 We will check blood counts on Tuesday Hypokalemia Hypomagnesemia Replace electrolytes as needed Mild elevation of troponin likely demand ischemia ECHO : LV wall motion is normal, EF 60 to 65%, RV is normal in size and function, moderate MR, moderate to severe TR, severe pulmonary hypertension, prosthetic valve is not well-visualized. Grade 1 diastolic dysfunction Denies any chest pain or palpitation and shortness of breath CKD III Cr at around baseline Monitor renal function Avoid nephrotoxic agents as able H/O Bladder tumor S/P Surgery in January of 2019. 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 Planned for repeat cysto in 6 months Currently patient not following Palliative care consulted to address goals of care Awaiting transfer to go to a custodial DVT Eliquis on Hold Check FOBT Resume as able Hypertension: On Norvasc, lisinopril, hydrochlorothiazide, Lopressor Monitor BP -blood pressure remains low at 94/56 Will discontinue amlodipine-blood pressure remains stable Prolonged QTC Avoid QTC prolonging meds as able Hyperlipidemia on statin Aortic stenosis S/P TAVR Continue home meds Compression fractures Pain control PT, OT when stable. Code Status DNI/DNR Prognosis remains poor Medically stable to be discharged Admission and Anticipated Discharge Date Admission Date: October 20, 2020 Subjective 10/22/2020 The patient was seen and examined in medical floor Has been complaining of some back discomfort Breathing is better but remains generally very weak and lethargic 10/23/2020 The patient was seen and examined in medical floor She has been at her best today Denies any symptoms and remains stable in bed 10/24/2020 The patient was seen and examined in medical floor She is out of bed on a chair and denies any significant symptoms Denies any more shortness of breath or any back pain She has been getting physical therapy and doing much better with it Awaiting placement 10/25/2020 Patient was seen and examined in medical floor She remains free of pain and free of shortness of breath at rest She denies any other symptoms Review of Systems Review of Systems: All systems reviewed and are unremarkable except as noted below Respiratory: no dyspnea (Minimal dyspnea at rest) Neurologic: + generalized weakness Physical Exam Physical Exam: Sitting on a chair without any acute distress Constitutional: + ill appearing Eyes: PERRL, conjunctivae normal, anicteric sclerae Neck: trachea midline, no thyromegaly Respiratory: no respiratory distress (Minimal distress at rest) Auscultation: + diminished lung sounds and + crackles (Bibasilar crackles) Cardiovascular: Rate/Rhythm: regular rate and regular rhythm Gastrointestinal (Abdomen): normal bowel sounds, soft, nontender, no hepatosplenomegaly Musculoskeletal: Chronic back discomfort but no acute arthritis in any joint Neurologic: moves all extremities; not confused (Pleasantly confused) Lymphatic: no cervical or axillary lymphadenopathy Results & Data Results & Data ([facility]) Vital Signs (Past 12 Hours) Vital Signs Temp Pulse Resp BP Pulse Ox 10/25/20 07:18 36.8 C 73 16 129/65 94 Medications Administered Current Inpatient Medications Acetaminophen (Acetaminophen 325 Mg Tab) 650 mg PO Q4H PRN PRN Reason: Pain or Fever Stop: 11/20/20 02:24 Last Admin: 10/23/20 14:03 Dose: 650 mg Documented by: Acyclovir (Acyclovir 400 Mg Tab) 400 mg PO DAILYBB [facility] Stop: 11/20/20 06:29 Last Admin: 10/25/20 06:29 Dose: 400 mg Documented by: Amlodipine Besylate (Amlodipine Besylate 5 Mg Tab) 10 mg PO HS [facility] Stop: 11/20/20 20:59 Last Admin: 10/21/20 20:01 Dose: 10 mg Documented by: Amoxicillin/Clavulanate Potassium (Amoxicillin/Clavulanate 500 Mg Tab) 1 tab PO BIDM [facility] Stop: 10/29/20 07:59 Last Admin: 10/25/20 09:47 Dose: 1 tab Documented by: Apixaban (Apixaban 2.5 Mg Tab) 2.5 mg PO BID [facility] Stop: 11/20/20 08:59 Last Admin: 10/22/20 10:42 Dose: Not Given Documented by: Atorvastatin Calcium ([facility]atin 40 Mg Tab) [facility] Stop: 11/20/20 08:59 Last Admin: 10/25/20 09:48 Dose: 80 mg Documented by: Cetirizine HCl (Cetirizine Hcl 10 Mg Tablet) 5 mg PO DAILY [facility] Stop: 11/20/20 08:59 Last Admin: 10/25/20 09:48 Dose: 5 mg Documented by: Hydrochlorothiazide (Hydrochlorothiazide 25 Mg Tab) [facility] Stop: 11/20/20 08:59 Last Admin: 10/21/20 08:13 Dose: 25 mg Documented by: Sodium Chloride (Nss) 250 mls @ 15 mls/hr IV .[id number] PRN PRN Reason: For Transfusion Stop: 11/20/20 02:24 Furosemide 20 mg/ Syringe 2 mls @ 4 mls/min IV DAILY [facility] Stop: 11/21/20 08:59 Last Admin: 10/25/20 09:49 Dose: 4 mls/min Documented by: Lidocaine (Lidocaine 5% 1 Patch) 1 [facility] Stop: 11/23/20 12:50 Last Admin: 10/25/20 09:47 Dose: 1 patch Documented by: Lisinopril (Lisinopril 10 Mg Tab) [facility] Stop: 11/20/20 08:59 Last Admin: 10/25/20 09:48 Dose: 10 mg Documented by: Metoprolol Tartrate (Metoprolol Tartrate 50 Mg Tab) 50 mg PO BID [facility] Stop: 11/20/20 08:59 Last Admin: 10/25/20 09:47 Dose: 50 mg Documented by: Miscellaneous (Remove Lidoderm Patch) 1 ea N/A DAILY@2100 [facility] Stop: 11/23/20 20:59 Last Admin: 10/24/20 20:24 Dose: 1 ea Documented by: Nitroglycerin (Nitroglycerin Sl 0.4 Mg/Tab Tab) 0.4 mg SL UD PRN PRN Reason: Chest Pain Stop: 11/20/20 02:24 Polyethylene Glycol (Polyethylene (Miralax) 17 Gm Pack) 17 gm PO DAILY PRN PRN Reason: Constipation Stop: 11/20/20 02:24 Potassium Chloride (Potassium Chloride 20 Meq/15 Ml Udc) 20 meq PO QAM [facility] Stop: 11/21/20 15:59 Last Admin: 10/25/20 09:49 Dose: 20 meq Documented by:
[2020-10-26] MEDS: ACYCLOVIR 400 MG TAB PO SCH (05:20)
[2020-10-26] MEDS: CETIRIZINE HCL 10 MG TABLET PO SCH (08:32)
[2020-10-26] MEDS: POTASSIUM CHLORIDE 20 MEQ/15 ML UDC PO SCH (08:32)
[2020-10-26] MEDS: LIDOCAINE 5% 1 PATCH TD SCH (08:32)
[2020-10-26] MEDS: FUROSEMIDE 20 MG in SYRINGE 0 ML IV SCH (08:32)
[2020-10-26] MEDS: METOPROLOL TARTRATE 50 MG TAB PO SCH ×2 (08:32→20:01)
[2020-10-26] MEDS: lisinopril 10 MG TAB PO SCH (08:33)
[2020-10-26] MEDS: ATORVASTATIN 40 MG TAB PO SCH (08:33)
[2020-10-26] MEDS: AMOXICILLIN/CLAVULANATE 500 MG TAB PO SCH (08:33)
--- NOTE | 2020-10-26 13:02 | Hospitalist Progress Note ---
Date of Service October 26, 2020 Assessment & Plan (1) Acute respiratory failure with hypoxia: Plan: Patient is an 80 yr female with H/O multiple myeloma, history of deep venous thrombosis, declining any treatment, and presents with ongoing weakness and found to have anemia and also shortness of breath. Acute Respiratory Failure with Hypoxia Bilateral Pleural effusion DD: CHF, ? Exudative --CT Chest: Dilated esophagus containing gas and ingested material. Interval worsening of the left pleural effusion and occluded bronchial structures at the left lower lobe could be due to aspiration. Please correlate above-mentioned findings with prior history and clinical presentation of aspiration. Interval development of moderate right pleural effusion. Stable cardiac silhouette without significant septal thickening of the aerated portion of pulmonary parenchyma, differential diagnosis include heart failure pattern without significant interval worsening. Diffuse severe osteopenia. Multiple compression fracture deformities within thoracic spine which is worsening of the height loss of T6 and new compression fracture deformities of T4 and T12. --S/P thoracentesis : 560 mL of fawn-colored fluid was evacuated --Transudative fluid likely secondary to CHF -Pathology pending Follow up Cultures-negative so far Continue Supplemental oxygen as needed Appreciate pulmonology and cardiology input Continue low-dose diuretics Aspiration precautions Will de-escalate IV antibiotics to Augmentin We will stop antibiotic Remains stable to be transferred Remains stable-awaiting placement Acute on chronic normocytic anemia Likely anemia of chronic disease Partly dilutional secondary to volume overload Denies any bleeding issues Hb: 6.2>9.9 S/P 2 units PRBCs Hemoglobin went up to 10.3 as of 10/22/2020 Hemoglobin remained stable at 8.7 on 10/24/2020 We will check blood counts on Tuesday Hypokalemia Hypomagnesemia Replace electrolytes as needed Mild elevation of troponin likely demand ischemia ECHO : LV wall motion is normal, EF 60 to 65%, RV is normal in size and function, moderate MR, moderate to severe TR, severe pulmonary hypertension, prosthetic valve is not well-visualized. Grade 1 diastolic dysfunction Denies any chest pain or palpitation and shortness of breath CKD III Cr at around baseline Monitor renal function Avoid nephrotoxic agents as able H/O Bladder tumor S/P Surgery in January of 2019. 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 Planned for repeat cysto in 6 months Currently patient not following Palliative care consulted to address goals of care Awaiting transfer to go to a sn[facility] DVT Eliquis on Hold Check FOBT Resume as able Hypertension: On Norvasc, lisinopril, hydrochlorothiazide, Lopressor Monitor BP -blood pressure remains low at 94/56 Will discontinue amlodipine-blood pressure remains stable Prolonged QTC Avoid QTC prolonging meds as able Hyperlipidemia on statin Aortic stenosis S/P TAVR Continue home meds Compression fractures Pain control PT, OT when stable. Code Status DNI/DNR Prognosis remains poor Medically stable to be discharged Admission and Anticipated Discharge Date Admission Date: October 20, 2020 Subjective 10/22/2020 The patient was seen and examined in medical floor Has been complaining of some back discomfort Breathing is better but remains generally very weak and lethargic 10/23/2020 The patient was seen and examined in medical floor She has been at her best today Denies any symptoms and remains stable in bed 10/24/2020 The patient was seen and examined in medical floor She is out of bed on a chair and denies any significant symptoms Denies any more shortness of breath or any back pain She has been getting physical therapy and doing much better with it Awaiting placement 10/25/2020 Patient was seen and examined in medical floor She remains free of pain and free of shortness of breath at rest She denies any other symptoms 10/26/2020 The patient was seen and examined in medical floor She is out of bed on a chair and has weakness but no other symptoms Back pain is controlled and denies any other pain Review of Systems Review of Systems: All systems reviewed and are unremarkable except as noted below Respiratory: no dyspnea (Minimal dyspnea at rest) Neurologic: + generalized weakness Physical Exam Physical Exam: Sitting on a chair without any acute distress Constitutional: + ill appearing Eyes: PERRL, conjunctivae normal, anicteric sclerae Neck: trachea midline, no thyromegaly Respiratory: no respiratory distress (Minimal distress at rest) Auscultation: + diminished lung sounds and + crackles (Bibasilar crackles) Cardiovascular: Rate/Rhythm: regular rate and regular rhythm Gastrointestinal (Abdomen): normal bowel sounds, soft, nontender, no hepatosplenomegaly Musculoskeletal: Generally weak but no acute arthritis involving any joint Neurologic: moves all extremities; not confused (Pleasantly confused) Lymphatic: no cervical or axillary lymphadenopathy Results & Data Results & Data ([facility]) Vital Signs (Past 12 Hours) Vital Signs Pulse Resp BP Pulse Ox Pulse Ox 10/26/20 07:09 77 16 121/62 92 10/26/20 02:00 95 Medications Administered Current Inpatient Medications Acetaminophen (Acetaminophen 325 Mg Tab) 650 mg PO Q4H PRN PRN Reason: Pain or Fever Stop: 11/20/20 02:24 Last Admin: 10/23/20 14:03 Dose: 650 mg Documented by: Acyclovir (Acyclovir 400 Mg Tab) 400 mg PO DAILYBB [facility] Stop: 11/20/20 06:29 Last Admin: 10/26/20 05:20 Dose: 400 mg Documented by: Amlodipine Besylate (Amlodipine Besylate 5 Mg Tab) 10 mg PO HS [facility] Stop: 11/20/20 20:59 Last Admin: 10/21/20 20:01 Dose: 10 mg Documented by: Amoxicillin/Clavulanate Potassium (Amoxicillin/Clavulanate 500 Mg Tab) 1 tab PO BIDM [facility] Stop: 10/29/20 07:59 Last Admin: 10/26/20 08:33 Dose: 1 tab Documented by: Apixaban (Apixaban 2.5 Mg Tab) 2.5 mg PO BID [facility] Stop: 11/20/20 08:59 Last Admin: 10/22/20 10:42 Dose: Not Given Documented by: Atorvastatin Calcium (Atorvastatin 40 Mg Tab) 80 mg PO QAM [facility] Stop: 11/20/20 08:59 Last Admin: 10/26/20 08:33 Dose: 80 mg Documented by: Cetirizine HCl (Cetirizine Hcl 10 Mg Tablet) 5 mg PO DAILY [facility] Stop: 11/20/20 08:59 Last Admin: 10/26/20 08:32 Dose: 5 mg Documented by: Hydrochlorothiazide (Hydrochlorothiazide 25 Mg Tab) 25 mg PO QAM [facility] Stop: 11/20/20 08:59 Last Admin: 10/21/20 08:13 Dose: 25 mg Documented by: Sodium Chloride (Nss) 250 mls @ 15 mls/hr IV .[id number] PRN PRN Reason: For Transfusion Stop: 11/20/20 02:24 Furosemide 20 mg/ Syringe 2 mls @ 4 mls/min IV DAILY [facility] Stop: 11/21/20 08:59 Last Admin: 10/26/20 08:32 Dose: 4 mls/min Documented by: Lidocaine (Lidocaine 5% 1 Patch) 1 patch TD QAM [facility] Stop: 11/23/20 12:50 Last Admin: 10/26/20 08:32 Dose: 1 patch Documented by: Lisinopril (Lisinopril 10 Mg Tab) 10 mg PO QAM [facility] Stop: 11/20/20 08:59 Last Admin: 10/26/20 08:33 Dose: 10 mg Documented by: Metoprolol Tartrate (Metoprolol Tartrate 50 Mg Tab) 50 mg PO BID [facility] Stop: 11/20/20 08:59 Last Admin: 10/26/20 08:32 Dose: 50 mg Documented by: Miscellaneous (Remove Lidoderm Patch) 1 ea N/A DAILY@2100 [facility] Stop: 11/23/20 20:59 Last Admin: 10/25/20 20:21 Dose: 1 ea Documented by: Nitroglycerin (Nitroglycerin Sl 0.4 Mg/Tab Tab) 0.4 mg SL UD PRN PRN Reason: Chest Pain Stop: 11/20/20 02:24 Polyethylene Glycol (Polyethylene (Miralax) 17 Gm Pack) 17 gm PO DAILY PRN PRN Reason: Constipation Stop: 11/20/20 02:24 Potassium Chloride (Potassium Chloride 20 Meq/15 Ml Udc) [facility] Stop: 11/21/20 15:59 Last Admin: 10/26/20 08:32 Dose: 20 meq Documented by:
[2020-10-26] MEDS: APIXABAN 2.5 MG TAB PO SCH (20:03)
[2020-10-27 05:27] LABS: Basophils # (auto) 0.01 K/uL (0-0.2); Basophils % (auto) 0.2 %; Eosinophils # (auto) 0.18 K/uL (0-0.5); Eosinophils % (auto) 3.7 %; Hematocrit (blood only) 28.6 % (37-47); Hemoglobin 9.2 g/dL (12.0-16.0); Immature Granulocytes # (auto) 0.07 K/uL (0.00-0.02); Immature Granulocytes % (auto) 1.4 %; Lymphocytes # (auto) 1.25 K/uL (1.2-3.4); Lymphocytes % (auto) 25.8 %; Mean Corpuscular Hemoglobin 32.3 pg (25-34); Mean Corpuscular Hgb Conc 32.2 g/dL (32-36); Mean Corpuscular Volume 100.4 fL (80-100); Mean Platelet Volume 9.4 fL (7.4-10.4); Monocytes # (auto) 1.05 K/uL (0.11-0.59); Monocytes % (auto) 21.7 %; Neutrophils # (auto) 2.28 K/uL (1.4-6.5); Neutrophils % (auto) 47.2 %; Platelet Count 105 K/uL (130-400); RDW Coefficient of Variation 17.2 % (11.5-14.5); Red Blood Count 2.85 M/uL (4.2-5.4); White Blood Count 4.84 K/uL (4.8-10.8)
[2020-10-27] MEDS: ACYCLOVIR 400 MG TAB PO SCH (05:29)
[2020-10-27 05:59] LABS: BUN Creatinine Ratio 24.1 (10-20); Calcium 9.4 mg/dl (8.5-10.1); Creatinine Clr Calc Pharmacy 23.5 ml/min; Est GFR (African American) 38.5 ml/min; Est GFR (Non-African American) 33.2 ml/min; Magnesium 1.7 mg/dl (1.8-2.4); Potassium 4.1 mmol/L (3.5-5.1)
[2020-10-27] MEDS: METOPROLOL TARTRATE 50 MG TAB PO SCH ×2 (08:35→20:15)
[2020-10-27] MEDS: CETIRIZINE HCL 10 MG TABLET PO SCH (08:35)
[2020-10-27] MEDS: lisinopril 10 MG TAB PO SCH (08:35)
[2020-10-27] MEDS: APIXABAN 2.5 MG TAB PO SCH ×2 (08:36→20:00)
[2020-10-27] MEDS: ATORVASTATIN 40 MG TAB PO SCH (08:36)
[2020-10-27] MEDS: LIDOCAINE 5% 1 PATCH TD SCH (08:36)
[2020-10-27] MEDS: POTASSIUM CHLORIDE 20 MEQ/15 ML UDC PO SCH (08:36)
[2020-10-27] MEDS: FUROSEMIDE 20 MG in SYRINGE 0 ML IV SCH (08:36)
--- NOTE | 2020-10-27 11:59 | Hospitalist Progress Note ---
Date of Service October 27, 2020 Assessment & Plan (1) Acute respiratory failure with hypoxia: Plan: Patient is an 80 yr female with H/O multiple myeloma, history of deep venous thrombosis, declining any treatment, and presents with ongoing weakness and found to have anemia and also shortness of breath. Acute Respiratory Failure with Hypoxia Bilateral Pleural effusion DD: CHF, ? Exudative --CT Chest: Dilated esophagus containing gas and ingested material. Interval worsening of the left pleural effusion and occluded bronchial structures at the left lower lobe could be due to aspiration. Please correlate above-mentioned findings with prior history and clinical presentation of aspiration. Interval development of moderate right pleural effusion. Stable cardiac silhouette without significant septal thickening of the aerated portion of pulmonary parenchyma, differential diagnosis include heart failure pattern without significant interval worsening. Diffuse severe osteopenia. Multiple compression fracture deformities within thoracic spine which is worsening of the height loss of T6 and new compression fracture deformities of T4 and T12. --S/P thoracentesis : 560 mL of fawn-colored fluid was evacuated --Transudative fluid likely secondary to CHF -Pathology pending Follow up Cultures-negative so far Continue Supplemental oxygen as needed Appreciate pulmonology and cardiology input Continue low-dose diuretics Aspiration precautions Will de-escalate IV antibiotics to Augmentin Remains stable and waiting to be transferred when approved Acute on chronic normocytic anemia Likely anemia of chronic disease Partly dilutional secondary to volume overload Denies any bleeding issues Hb: 6.2>9.9 S/P 2 units PRBCs Hemoglobin remains stable at more than 9 as of 10/27/2020 Hypokalemia Hypomagnesemia Replace electrolytes as needed Mild elevation of troponin likely demand ischemia ECHO : LV wall motion is normal, EF 60 to 65%, RV is normal in size and function, moderate MR, moderate to severe TR, severe pulmonary hypertension, prosthetic valve is not well-visualized. Grade 1 diastolic dysfunction Denies any chest pain or palpitation and shortness of breath CKD III Cr at around baseline Monitor renal function Avoid nephrotoxic agents as able Creatinine has improved to 1.46 H/O Bladder tumor S/P Surgery in January of 2019. 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 Planned for repeat cysto in 6 months Currently patient not following Palliative care consulted to address goals of care Awaiting transfer to [facility] to a [facility] Eliquis on Hold Check FOBT Resume as able Hypertension: On Norvasc, lisinopril, hydrochlorothiazide, Lopressor Monitor BP -blood pressure remains low at 94/56 Will discontinue amlodipine-blood pressure remains stable Prolonged QTC Avoid QTC prolonging meds as able Hyperlipidemia on statin Aortic stenosis S/P TAVR Continue home meds Compression fractures Pain control PT, OT when stable. Code Status DNI/DNR Prognosis remains poor Medically stable to be discharged when approved Admission and Anticipated Discharge Date Admission Date: October 20, 2020 Subjective 10/22/2020 The patient was seen and examined in medical floor Has been complaining of some back discomfort Breathing is better but remains generally very weak and lethargic 10/23/2020 The patient was seen and examined in medical floor She has been at her best today Denies any symptoms and remains stable in bed 10/24/2020 The patient was seen and examined in medical floor She is out of bed on a chair and denies any significant symptoms Denies any more shortness of breath or any back pain She has been getting physical therapy and doing much better with it Awaiting placement 10/25/2020 Patient was seen and examined in medical floor She remains free of pain and free of shortness of breath at rest She denies any other symptoms 10/26/2020 The patient was seen and examined in medical floor She is out of bed on a chair and has weakness but no other symptoms Back pain is controlled and denies any other pain 10/27/2020 Patient was seen and examined in medical floor She remains stable and denies any significant symptoms She has been getting physical therapy and is well aware about her medical condition Review of Systems Review of Systems: All systems reviewed and are unremarkable except as noted below Respiratory: no dyspnea (Minimal dyspnea at rest) Neurologic: + generalized weakness Physical Exam Physical Exam: Sitting on a chair without any acute distress Constitutional: + ill appearing Eyes: PERRL, conjunctivae normal, anicteric sclerae Neck: trachea midline, no thyromegaly Respiratory: no respiratory distress (Minimal distress at rest) Auscultation: + diminished lung sounds and + crackles (Bibasilar crackles) Cardiovascular: Rate/Rhythm: regular rate and regular rhythm Gastrointestinal (Abdomen): normal bowel sounds, soft, nontender, no hepatosplenomegaly Musculoskeletal: Has minimal back ache but no acute arthritis involving any joint Neurologic: moves all extremities; not confused (Pleasantly confused) Psychiatric: A+Ox3, euthymic affect Lymphatic: no cervical or axillary lymphadenopathy Results & Data Results & Data ([facility]) Vital Signs (Past 12 Hours) Vital Signs Temp Pulse Resp BP Pulse Ox 10/27/20 07:28 36.6 C 76 16 123/62 97 Laboratory Results Short CBC 10/27/20 Range/Units 04:50 WBC 4.84 (4.8-10.8) K/uL Hgb 9.2 L (12.0-16.0) g/dL Hct 28.6 L (37-47) % Plt Count 105 L (130-400) K/uL BMP 10/27/20 04:50 Sodium 133 L Potassium 4.1 Chloride 104 Carbon Dioxide 25 BUN 35 H Creatinine 1.46 H Glucose 99 Calcium 9.4 Medications Administered Current Inpatient Medications Acetaminophen (Acetaminophen 325 Mg Tab) 650 mg PO Q4H PRN PRN Reason: Pain or Fever Stop: 11/20/20 02:24 Last Admin: 10/23/20 14:03 Dose: 650 mg Documented by: Acyclovir (Acyclovir 400 Mg Tab) 400 mg PO DAILYBB [facility] Stop: 11/20/20 06:29 Last Admin: 10/27/20 05:29 Dose: 400 mg Documented by: Amlodipine Besylate (Amlodipine Besylate 5 Mg Tab) 10 mg PO HS [facility] Stop: 11/20/20 20:59 Last Admin: 10/21/20 20:01 Dose: 10 mg Documented by: Apixaban (Apixaban 2.5 Mg Tab) 2.5 mg PO BID [facility] Stop: 11/20/20 08:59 Last Admin: 10/27/20 08:36 Dose: 2.5 mg Documented by: Atorvastatin Calcium (Atorvastatin 40 Mg Tab) 80 mg PO QAM [facility] Stop: 11/20/20 08:59 Last Admin: 10/27/20 08:36 Dose: 80 mg Documented by: Cetirizine HCl (Cetirizine Hcl 10 Mg Tablet) 5 mg PO DAILY [facility] Stop: 11/20/20 08:59 Last Admin: 10/27/20 08:35 Dose: 5 mg Documented by: Hydrochlorothiazide (Hydrochlorothiazide 25 Mg Tab) 25 mg PO QAM [facility] Stop: 11/20/20 08:59 Last Admin: 10/21/20 08:13 Dose: 25 mg Documented by: Sodium Chloride (Nss) 250 mls @ 15 mls/hr IV .[id number] PRN PRN Reason: For Transfusion Stop: 11/20/20 02:24 Furosemide 20 mg/ Syringe 2 mls @ 4 mls/min IV DAILY [facility] Stop: 11/21/20 08:59 Last Admin: 10/27/20 08:36 Dose: 4 mls/min Documented by: Lidocaine (Lidocaine 5% 1 Patch) 1 patch TD QAM [facility] Stop: 11/23/20 12:50 Last Admin: 10/27/20 08:36 Dose: 1 patch Documented by: Lisinopril (Lisinopril 10 Mg Tab) 10 mg PO QAM [facility] Stop: 11/20/20 08:59 Last Admin: 10/27/20 08:35 Dose: 10 mg Documented by: Metoprolol Tartrate (Metoprolol Tartrate 50 Mg Tab) 50 mg PO BID [facility] Stop: 11/20/20 08:59 Last Admin: 10/27/20 08:35 Dose: 50 mg Documented by: Miscellaneous (Remove Lidoderm Patch) 1 ea N/A DAILY@2100 [facility] Stop: 11/23/20 20:59 Last Admin: 10/26/20 20:03 Dose: 1 ea Documented by: Nitroglycerin (Nitroglycerin Sl 0.4 Mg/Tab Tab) 0.4 mg SL UD PRN PRN Reason: Chest Pain Stop: 11/20/20 02:24 Polyethylene Glycol (Polyethylene (Miralax) 17 Gm Pack) 17 gm PO DAILY PRN PRN Reason: Constipation Stop: 11/20/20 02:24 Potassium Chloride (Potassium Chloride 20 Meq/15 Ml Udc) 20 meq PO QAM [facility] Stop: 11/21/20 15:59 Last Admin: 10/27/20 08:36 Dose: 20 meq Documented by:
[2020-10-28] MEDS: ACYCLOVIR 400 MG TAB PO SCH (06:04)
[2020-10-28 07:01] LABS: Appearance Urine Clear (Clear); Bacteria Urine Automated Negative (Negative); Bilirubin Urine Negative (Negative); Blood Urine Negative (Negative); Color Urine Yellow; Glucose Urine UA Negative (Negative); Ketones Urine Negative (Negative); Leukocyte Esterase Urine Negative (Negative); Nitrite Urine Negative (Negative); Protein Urine 1+ (Negative); RBC Urine Automated 0-4 /hpf (0-4); Specific Gravity Urine 1.016 (1.000-1.030); Urobilinogen Urine Negative (Negative); pH Urine 5.5 (4.5-7.5)
[2020-10-28] MEDS: LIDOCAINE 5% 1 PATCH TD SCH (09:33)
[2020-10-28] MEDS: ATORVASTATIN 40 MG TAB PO SCH (09:33)
[2020-10-28] MEDS: FUROSEMIDE 20 MG in SYRINGE 0 ML IV SCH (09:33)
[2020-10-28] MEDS: APIXABAN 2.5 MG TAB PO SCH ×2 (09:33→19:48)
[2020-10-28] MEDS: CETIRIZINE HCL 10 MG TABLET PO SCH (09:33)
[2020-10-28] MEDS: METOPROLOL TARTRATE 50 MG TAB PO SCH ×2 (09:34→19:48)
[2020-10-28] MEDS: lisinopril 10 MG TAB PO SCH (09:34)
[2020-10-28] MEDS: POTASSIUM CHLORIDE 20 MEQ/15 ML UDC PO SCH (09:34)
--- NOTE | 2020-10-28 11:17 | Hospitalist Progress Note ---
Date of Service October 28, 2020 Assessment & Plan (1) Acute respiratory failure with hypoxia: Plan: Patient is an 80 yr female with H/O multiple myeloma, history of deep venous thrombosis, declining any treatment, and presents with ongoing weakness and found to have anemia and also shortness of breath. Acute Respiratory Failure with Hypoxia Bilateral Pleural effusion DD: CHF, ? Exudative --CT Chest: Dilated esophagus containing gas and ingested material. Interval worsening of the left pleural effusion and occluded bronchial structures at the left lower lobe could be due to aspiration. Please correlate above-mentioned findings with prior history and clinical presentation of aspiration. Interval development of moderate right pleural effusion. Stable cardiac silhouette without significant septal thickening of the aerated portion of pulmonary parenchyma, differential diagnosis include heart failure pattern without significant interval worsening. Diffuse severe osteopenia. Multiple compression fracture deformities within thoracic spine which is worsening of the height loss of T6 and new compression fracture deformities of T4 and T12. --S/P thoracentesis : 560 mL of fawn-colored fluid was evacuated --Transudative fluid likely secondary to CHF -Pathology pending Follow up Cultures-negative so far Continue Supplemental oxygen as needed Appreciate pulmonology and cardiology input Continue low-dose diuretics Aspiration precautions Will de-escalate IV antibiotics to Augmentin Remains stable and waiting to be transferred when approved Acute on chronic normocytic anemia Likely anemia of chronic disease Partly dilutional secondary to volume overload Denies any bleeding issues Hb: 6.2>9.9 S/P 2 units PRBCs Hemoglobin remains stable at more than 9 as of 10/27/2020 Hypokalemia Hypomagnesemia Replace electrolytes as needed Normalized Mild elevation of troponin likely demand ischemia ECHO : LV wall motion is normal, EF 60 to 65%, RV is normal in size and function, moderate MR, moderate to severe TR, severe pulmonary hypertension, prosthetic valve is not well-visualized. Grade 1 diastolic dysfunction Denies any chest pain or palpitation and shortness of breath CKD III Cr at around baseline Monitor renal function Avoid nephrotoxic agents as able Creatinine has improved to 1.46 H/O Bladder tumor S/P Surgery in January of 2019. 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 Planned for repeat cysto in 6 months Currently patient not following Palliative care consulted to address goals of care Awaiting transfer to go to a half-way DVT Eliquis on Hold Check FOBT Resume as able Hypertension: On Norvasc, lisinopril, hydrochlorothiazide, Lopressor Monitor BP -blood pressure remains low at 94/56 Will discontinue amlodipine-blood pressure remains stable Blood pressure remains stable Prolonged QTC Avoid QTC prolonging meds as able Hyperlipidemia on statin Aortic stenosis S/P TAVR Continue home meds Compression fractures Pain control PT, OT when stable. Code Status DNI/DNR Prognosis remains poor Medically stable to be discharged when approved [facility] at [facility] and will be discharged tomorrow Admission and Anticipated Discharge Date Admission Date: October 20, 2020 Subjective 10/22/2020 The patient was seen and examined in medical floor Has been complaining of some back discomfort Breathing is better but remains generally very weak and lethargic 10/23/2020 The patient was seen and examined in medical floor She has been at her best today Denies any symptoms and remains stable in bed 10/24/2020 The patient was seen and examined in medical floor She is out of bed on a chair and denies any significant symptoms Denies any more shortness of breath or any back pain She has been getting physical therapy and doing much better with it Awaiting placement 10/25/2020 Patient was seen and examined in medical floor She remains free of pain and free of shortness of breath at rest She denies any other symptoms 10/26/2020 The patient was seen and examined in medical floor She is out of bed on a chair and has weakness but no other symptoms Back pain is controlled and denies any other pain 10/27/2020 Patient was seen and examined in medical floor She remains stable and denies any significant symptoms She has been getting physical therapy and is well aware about her medical condition 10/28/2020 The patient was seen and examined in medical floor She is out of bed on a chair without any acute distress Denies any symptoms and she will be discharged this afternoon to rehab Review of Systems Review of Systems: All systems reviewed and are unremarkable except as noted below Respiratory: no dyspnea (Minimal dyspnea at rest) Neurologic: + generalized weakness Physical Exam Physical Exam: Sitting on a chair without any acute distress Constitutional: + ill appearing Eyes: PERRL, conjunctivae normal, anicteric sclerae Neck: trachea midline, no thyromegaly Respiratory: no respiratory distress (Minimal distress at rest) Auscultation: + diminished lung sounds and + crackles (Bibasilar crackles) Cardiovascular: Rate/Rhythm: regular rate and regular rhythm Gastrointestinal (Abdomen): normal bowel sounds, soft, nontender, no hepatosplenomegaly Musculoskeletal: Denies any acute arthritis in any joint and does not have any more back pain Neurologic: moves all extremities; not confused (Pleasantly confused) Psychiatric: A+Ox3, euthymic affect Lymphatic: no cervical or axillary lymphadenopathy Results & Data Results & Data ([facility]) Vital Signs (Past 12 Hours) Vital Signs Temp Pulse Resp BP Pulse Ox 10/28/20 07:55 36.4 C L 71 16 138/62 93 10/28/20 06:04 93 Laboratory Results Urine 10/28/20 Range/Units 05:29 Urine Color Yellow Urine Appearance Clear (Clear) Urine pH 5.5 (4.5-7.5) Ur Specific [place] 1.016 (1.000-1.030) Urine Protein 1+ H (Negative) Urine Glucose (UA) Negative (Negative) Medications Administered Current Inpatient Medications Acetaminophen (Acetaminophen 325 Mg Tab) 650 mg PO Q4H PRN PRN Reason: Pain or Fever Stop: 11/20/20 02:24 Last Admin: 10/23/20 14:03 Dose: 650 mg Documented by: Acyclovir (Acyclovir 400 Mg Tab) 400 mg PO DAILYBB [facility] Stop: 11/20/20 06:29 Last Admin: 10/28/20 06:04 Dose: 400 mg Documented by: Amlodipine Besylate (Amlodipine Besylate 5 Mg Tab) 10 mg PO HS [facility] Stop: 11/20/20 20:59 Last Admin: 10/21/20 20:01 Dose: 10 mg Documented by: Apixaban (Apixaban 2.5 Mg Tab) 2.5 mg PO BID SUMEET Stop: 11/20/20 08:59 Last Admin: 10/28/20 09:33 Dose: 2.5 mg Documented by: Atorvastatin Calcium (Atorvastatin 40 Mg Tab) 80 mg PO QAM SUMEET Stop: 11/20/20 08:59 Last Admin: 10/28/20 09:33 Dose: 80 mg Documented by: Cetirizine HCl (Cetirizine Hcl 10 Mg Tablet) 5 mg PO DAILY SUMEET Stop: 11/20/20 08:59 Last Admin: 10/28/20 09:33 Dose: 5 mg Documented by: Hydrochlorothiazide (Hydrochlorothiazide 25 Mg Tab) 25 mg PO QAM SUMEET Stop: 11/20/20 08:59 Last Admin: 10/21/20 08:13 Dose: 25 mg Documented by: Sodium Chloride (Nss) 250 mls @ 15 mls/hr IV .[id number] PRN PRN Reason: For Transfusion Stop: 11/20/20 02:24 Furosemide 20 mg/ Syringe 2 mls @ 4 mls/min IV DAILY [facility] Stop: 11/21/20 08:59 Last Admin: 10/28/20 09:33 Dose: 4 mls/min Documented by: Lidocaine (L[facility]ocaine 5% 1 Patch) [facility] [place] Stop: 11/23/20 12:50 Last Admin: 10/28/20 09:33 Dose: 1 patch Documented by: Lisinopril (Lisinopril 10 Mg Tab) 10 mg PO QAM [facility] Stop: 11/20/20 08:59 Last Admin: 10/28/20 09:34 Dose: 10 mg Documented by: Metoprolol Tartrate (Metoprolol Tartrate 50 Mg Tab) 50 mg PO BID [facility] Stop: 11/20/20 08:59 Last Admin: 10/28/20 09:34 Dose: 50 mg Documented by: Miscellaneous (Remove Lidoderm Patch) 1 ea N/A DAILY@2100 [facility] Stop: 11/23/20 20:59 Last Admin: 10/27/20 20:01 Dose: 1 ea Documented by: Nitroglycerin (Nitroglycerin Sl 0.4 Mg/Tab Tab) 0.4 mg SL UD PRN PRN Reason: Chest Pain Stop: 11/20/20 02:24 Polyethylene Glycol (Polyethylene (Miralax) 17 Gm Pack) 17 gm PO DAILY PRN PRN Reason: Constipation Stop: 11/20/20 02:24 Potassium Chloride (Potassium Chloride 20 Meq/15 Ml Udc) 20 meq PO QAM [facility] Stop: 11/21/20 15:59 Last Admin: 10/28/20 09:34 Dose: 20 meq Documented by:
[2020-10-28 21:53] VITALS: TEMP 97.5; O2SAT 91
[2020-10-29] MEDS: ACYCLOVIR 400 MG TAB PO SCH (05:12)
[2020-10-29 07:29] VITALS: BP 146/72; PULSE 74
[2020-10-29] MEDS: LIDOCAINE 5% 1 PATCH TD SCH (08:33)
[2020-10-29] MEDS: METOPROLOL TARTRATE 50 MG TAB PO SCH (08:33)
[2020-10-29] MEDS: POTASSIUM CHLORIDE 20 MEQ/15 ML UDC PO SCH (08:33)
[2020-10-29] MEDS: FUROSEMIDE 20 MG in SYRINGE 0 ML IV SCH (08:34)
[2020-10-29] MEDS: ATORVASTATIN 40 MG TAB PO SCH (08:34)
[2020-10-29] MEDS: CETIRIZINE HCL 10 MG TABLET PO SCH (08:34)
[2020-10-29] MEDS: APIXABAN 2.5 MG TAB PO SCH (08:34)
[2020-10-29] MEDS: lisinopril 10 MG TAB PO SCH (08:34)
--- NOTE | 2020-10-29 10:01 | Hospitalist Progress Note ---
Date of Service October 29, 2020 Assessment & Plan (1) Acute respiratory failure with hypoxia: Plan: Patient is an 80 yr female with H/O multiple myeloma, history of deep venous thrombosis, declining any treatment, and presents with ongoing weakness and found to have anemia and also shortness of breath. Acute Respiratory Failure with Hypoxia Bilateral Pleural effusion DD: CHF, ? Exudative --CT Chest: Dilated esophagus containing gas and ingested material. Interval worsening of the left pleural effusion and occluded bronchial structures at the left lower lobe could be due to aspiration. Please correlate above-mentioned findings with prior history and clinical presentation of aspiration. Interval development of moderate right pleural effusion. Stable cardiac silhouette without significant septal thickening of the aerated portion of pulmonary parenchyma, differential diagnosis include heart failure pattern without significant interval worsening. Diffuse severe osteopenia. Multiple compression fracture deformities within thoracic spine which is worsening of the height loss of T6 and new compression fracture deformities of T4 and T12. --S/P thoracentesis : 560 mL of fawn-colored fluid was evacuated --Transudative fluid likely secondary to CHF -Pathology pending-benign mesothelial cells and no malignancy Follow up Cultures-negative so far Continue Supplemental oxygen as needed Appreciate pulmonology and cardiology input Continue low-dose diuretics Aspiration precautions Will de-escalate IV antibiotics to Augmentin-antibiotic course is done Medically stable and will be transferred to [facility] this afternoon Acute on chronic normocytic anemia Likely anemia of chronic disease Partly dilutional secondary to volume overload Denies any bleeding issues Hb: 6.2>9.9 S/P 2 units PRBCs Hemoglobin remains stable at more than 9 as of 10/27/2020 Hypokalemia Hypomagnesemia Replace electrolytes as needed Normalized Mild elevation of troponin likely demand ischemia ECHO : LV wall motion is normal, EF 60 to 65%, RV is normal in size and f unction, moderate MR, moderate to severe TR, severe pulmonary hypertension, prosthetic valve is not well-visualized. Grade 1 diastolic dysfunction Denies any chest pain or palpitation and shortness of breath CKD III Cr at around baseline Monitor renal function Avoid nephrotoxic agents as able Creatinine has improved to 1.46 H/O Bladder tumor S/P Surgery in January of 2019. 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 Planned for repeat cysto in 6 months Currently patient not following Palliative care consulted to address goals of care Awaiting transfer to go to a alf DVT Eliquis on Hold Check FOBT Resume as able Hypertension: On Norvasc, lisinopril, hydrochlorothiazide, Lopressor Monitor BP -blood pressure remains low at 94/56 Will discontinue amlodipine-blood pressure remains stable Blood pressure remains stable Prolonged QTC Avoid QTC prolonging meds as able Hyperlipidemia on statin Aortic stenosis S/P TAVR Continue home meds Compression fractures Pain control PT, OT when stable. Code Status DNI/DNR Prognosis remains poor Medically stable to be discharged when approved [facility]ed at [facility] and will be transferred this afternoon Admission and Anticipated Discharge Date Admission Date: October 20, 2020 Subjective 10/22/2020 The patient was seen and examined in medical floor Has been complaining of some back discomfort Breathing is better but remains generally very weak and lethargic 10/23/2020 The patient was seen and examined in medical floor She has been at her best today Denies any symptoms and remains stable in bed 10/24/2020 The patient was seen and examined in medical floor She is out of bed on a chair and denies any significant symptoms Denies any more shortness of breath or any back pain She has been getting physical therapy and doing much better with it Awaiting placement 10/25/2020 Patient was seen and examined in medical floor She remains free of pain and free of shortness of breath at rest She denies any other symptoms 10/26/2020 The patient was seen and examined in medical floor She is out of bed on a chair and has weakness but no other symptoms Back pain is controlled and denies any other pain 10/27/2020 Patient was seen and examined in medical floor She remains stable and denies any significant symptoms She has been getting physical therapy and is well aware about her medical condition 10/28/2020 The patient was seen and examined in medical floor She is out of bed on a chair without any acute distress Denies any symptoms and she will be discharged this afternoon to rehab 10/29/2020 The patient was seen and examined in medical floor She remains stable and denies any significant symptoms She has had minimal shortness of breath last night but none this morning She will be transferred to [facility] this afternoon Review of Systems Review of Systems: All systems reviewed and are unremarkable except as noted below Respiratory: no dyspnea (Minimal dyspnea at rest) Neurologic: + generalized weakness Physical Exam Physical Exam: Sitting on a chair without any acute distress Constitutional: not ill appearing Eyes: PERRL, conjunctivae normal, anicteric sclerae Neck: trachea midline, no thyromegaly Respiratory: no respiratory distress (Minimal distress at rest) Auscultation: + diminished lung sounds and + crackles (Bibasilar crackles) Cardiovascular: Rate/Rhythm: regular rate and regular rhythm Gastrointestinal (Abdomen): normal bowel sounds, soft, nontender, no hepatosplenomegaly Musculoskeletal: No acute arthritis in any joint Neurologic: moves all extremities; not confused (Pleasantly confused) Psychiatric: A+Ox3, euthymic affect Lymphatic: no cervical or axillary lymphadenopathy Results & Data Results & [facility] ([facility]) Vital Signs (Past 12 Hours) Vital Signs Temp Pulse Resp BP Pulse Ox 10/29/20 07:28 36.4 C L 74 20 146/72 H 91 Medications Administered Current Inpatient Medications Acetaminophen (Acetaminophen 325 Mg Tab) 650 mg PO Q4H PRN PRN Reason: Pain or Fever Stop: 11/20/20 02:24 Last Admin: 10/23/20 14:03 Dose: 650 mg Documented by: Acyclovir (Acyclovir 400 Mg Tab) 400 mg PO DAILYBB SUMEET Stop: 11/20/20 06:29 Last Admin: 10/29/20 05:12 Dose: 400 mg Documented by: Amlodipine Besylate (Amlodipine Besylate 5 Mg Tab) 10 mg PO [facility] Stop: 11/20/20 20:59 Last Admin: 10/21/20 20:01 Dose: 10 mg Documented by: Apixaban (Apixaban 2.5 Mg Tab) 2.5 mg PO BID SUMEET Stop: 11/20/20 08:59 Last Admin: 10/29/20 08:34 Dose: 2.5 mg Documented by: Atorvastatin Calcium (Atorvastatin 40 Mg Tab) 80 mg PO QAM SUMEET Stop: 11/20/20 08:59 Last Admin: 10/29/20 08:34 Dose: 80 mg Documented by: Cetirizine HCl (Cetirizine Hcl 10 Mg Tablet) 5 mg PO DAILY SUMEET Stop: 11/20/20 08:59 Last Admin: 10/29/20 08:34 Dose: 5 mg Documented by: Hydrochlorothiazide (Hydrochlorothiazide 25 Mg Tab) 25 mg PO QAM SUMEET Stop: 11/20/20 08:59 Last Admin: 10/21/20 08:13 Dose: 25 mg Documented by: Sodium Chloride (Nss) 250 mls @ 15 mls/hr IV .[id number] PRN PRN Reason: For Transfusion Stop: 11/20/20 02:24 Furosemide 20 mg/ Syringe 2 mls @ 4 mls/min IV DAILY [facility] Stop: 11/21/20 08:59 Last Admin: 10/29/20 08:34 Dose: 4 mls/min Documented by: Lidocaine ([facility]oc[facility] 5% 1 Patch) [facility] Stop: 11/23/20 12:50 Last Admin: 10/29/20 08:33 Dose: 1 patch Documented by: Lisinopril (Lisinopril 10 Mg Tab) 10 mg PO QAM [facility] Stop: 11/20/20 08:59 Last Admin: 10/29/20 08:34 Dose: 10 mg Documented by: Metoprolol Tartrate (Metoprolol Tartrate 50 Mg Tab) 50 mg PO BID [facility] Stop: 11/20/20 08:59 Last Admin: 10/29/20 08:33 Dose: 50 mg Documented by: Miscellaneous (Remove Lidoderm Patch) 1 ea N/A DAILY@2100 [facility] Stop: 11/23/20 20:59 Last Admin: 10/28/20 19:48 Dose: 1 ea Documented by: Nitroglycerin (Nitroglycerin Sl 0.4 Mg/Tab Tab) 0.4 mg SL UD PRN PRN Reason: Chest Pain Stop: 11/20/20 02:24 Polyethylene Glycol (Polyethylene (Miralax) 17 Gm Pack) 17 gm PO DAILY PRN PRN Reason: Constipation Stop: 11/20/20 02:24 Potassium Chloride (Potassium Chloride 20 Meq/15 Ml Udc) 20 meq PO QAM [facility] Stop: 11/21/20 15:59 Last Admin: 10/29/20 08:33 Dose: 20 meq Documented by:
--- NOTE | 2020-10-29 17:29 | Discharge Summary ---
Date of Service October 29, 2020 Admission HPI Per Admitting Provider DICTATED BY: Davy oDnovan MD DATE OF ADMISSION: 10/20/2020. CHIEF COMPLAINT: Weakness. HISTORY OF PRESENT ILLNESS: This is an 80-year-old female with past medical history significant for multiple myeloma in relapse, history of DVT, hyperlipidemia, hypertension, aortic stenosis, status post TAVR, history of chronic kidney disease stage IIIB, malignant neoplasm of trigone of urinary bladder, peripheral polyneuropathy, compression fracture of thoracic vertebra, history of nonmelanoma skin cancer. The patient lives in an apartment. The patient, lately she is using a walker and she feels good about it and she says the last time she fell was in May. She was in the ER in August with complaint of back pain. Her imaging studies show multiple compression fractures of the spine. The patient went home to follow as outpatient. The patient was recently seen last week by her family doctor by telemedicine. The patient seems to be not taking her medications, she is on and off stopping her medications. She gets Meals on Wheels. As per family doctor notes also she states that she is ready to now and lived her life. Denies feeling depressed. Does not want to take any medication. No suicidal ideation as per her PCP notes. The patient today was brought in by her aides/friends. She says she gets two people to help her. Her friends and aides were concerned, and she was brought in here. She has complaints of difficulty breathing and also back pain. Has occasional dry cough and occasional gagging. She states she is not able to drink coffee. She is vomiting coffee, but she is able to eat her meals okay. Since the pandemic started, she stopped going to see her Hem/Onc and now she is having difficulty with ambulation and it is difficult to go to the office, but when asked her if transport arranged will she go, then she states that even one of her friends offered to help her, but she declined, she does not want to go to doctors. She says she is declining and she accepts it and she does not want to go and she does not want any treatment.But today she is acceptable for any blood transfusion or any treatments to make her feel better, but she wanted to be DNR/DNI. In the ER, she was requiring oxygen to maintain her saturations. Denies any chest pain, denies any headache. She says left eyelid is taken off of the cancer on the eyelid. Says has blurred vision sometimes on the left eye,but then it clears up. She has sinusitis and she has some runny nose and occasional sore throat. She has some chest pain on and off on the ribcage, abdominal discomfort sometimes on and off. She states she is moving her bowels regularly and denies any blood in the stool or black stools. No hematuria. She states 2-3 weeks ago she had one episode of bleeding, but she thinks it is from the hemorrhoids. She is ok to be seen by palliative care. She says that her appetite is not that great and she is losing weight. She says she does not have any kids and was not .She has one brother who is in town, and she is not talking to him, and there is a 93-year-old sister in [place]. Her insight seems to be good. She is alert and oriented. Admission Exam Per Admitting Provider GENERAL: The patient is old and frail, not in acute distress. VITAL SIGNS: Temperature 36.8, pulse 79, respiratory rate 24, blood pressure 140/65, oxygen 91% on 3 liters. HEENT: Pupils equal, round and reactive to light. Upper eyelid is absent. Oral mucosa dry. NECK: No JVD, no neck masses. HEART: S1 and S2 heard. Regular rate and rhythm. No murmur, no gallop. RESPIRATORY: Normal AP diameter. No accessory muscle use. No wheezing, no crackles. ABDOMEN: Soft, bowel sounds present, nontender, no distention. CENTRAL NERVOUS SYSTEM: Alert and oriented x3. Insight is good. Speech is clear. No facial droop. Obeys simple commands. Moves extremities. EXTREMITIES: A +1 pedal edema present, no erythema seen. Principal Diagnosis Acute respiratory failure with hypoxia, left pleural effusion status post thoracentesis, acute on chronic diastolic heart failure, chronic kidney disease, chronic anemia Discharge Exam Constitutional not ill appearing Eyes PERRL, conjunctivae normal, anicteric sclerae Neck trachea midline, no thyromegaly Respiratory no respiratory distress (Minimal distress at rest) Auscultation: + diminished lung sounds and + crackles (Bibasilar crackles) Cardiovascular Rate/Rhythm: regular rate and regular rhythm Gastrointestinal (Abdomen) normal bowel sounds, soft, nontender, no hepatosplenomegaly Neurologic moves all extremities; not confused (Pleasantly confused) Psychiatric A+Ox3, euthymic affect Lymphatic no cervical or axillary lymphadenopathy Discharge Data Allergies Allergy/AdvReac Type Severity Reaction Status Date / Time No Known Allergies Allergy Verified 10/20/20 21:48 Consultations 10/20/20 22:33 ED Decision to Admit Stat 10/21/20 07:33 Consult Cardiology Routine 10/21/20 08:00 Consult Palliative Care Routine Consult Pulmonology Routine Ordered Studies 10/20/20 23:59 CT chest diagnostic wo con Urgent 10/21/20 08:17 US point of care ultrasound Urgent Hospital Course (1) Acute respiratory failure with hypoxia: Patient is an 80 yr female with H/O multiple myeloma, history of deep venous thrombosis, declining any treatment, and presents with ongoing weakness and found to have anemia and also shortness of breath. Acute Respiratory Failure with Hypoxia Bilateral Pleural effusion DD: CHF, ? Exudative --CT Chest: Dilated esophagus containing gas and ingested material. Interval worsening of the left pleural effusion and occluded bronchial structures at the left lower lobe could be due to aspiration. Please correlate above-mentioned findings with prior history and clinical presentation of aspiration. Interval development of moderate right pleural effusion. Stable cardiac silhouette without significant septal thickening of the aerated portion of pulmonary parenchyma, differential diagnosis include heart failure pattern without significant interval worsening. Diffuse severe osteopenia. Multiple compression fracture deformities within thoracic spine which is worsening of the height loss of T6 and new compression fracture deformities of T4 and T12. --S/P thoracentesis : 560 mL of fawn-colored fluid was evacuated --Transudative fluid likely secondary to CHF -Pathology pending-benign mesothelial cells and no malignancy Follow up Cultures-negative so far Continue Supplemental oxygen as needed Appreciate pulmonology and cardiology input Continue low-dose diuretics Aspiration precautions Will de-escalate IV antibiotics to Augmentin-antibiotic course is done Medically stable and will be transferred to [facility] this afternoon Acute on chronic normocytic anemia Likely anemia of chronic disease Partly dilutional secondary to volume overload Denies any bleeding issues Hb: 6.2>9.9 S/P 2 units PRBCs Hemoglobin remains stable at more than 9 as of 10/27/2020 Hypokalemia Hypomagnesemia Replace electrolytes as needed Normalized Mild elevation of troponin likely demand ischemia ECHO : LV wall motion is normal, EF 60 to 65%, RV is normal in size and function, moderate MR, moderate to severe TR, severe pulmonary hypertension, prosthetic valve is not well-visualized. Grade 1 diastolic dysfunction Denies any chest pain or palpitation and shortness of breath CKD III Cr at around baseline Monitor renal function Avoid nephrotoxic agents as able Creatinine has improved to 1.46 H/O Bladder tumor S/P Surgery in January of 2019. 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 Planned for repeat cysto in 6 months Currently patient not following Palliative care consulted to address goals of care [facility]ing [facility] DVT Eliquis on Hold Check FOBT Resume as able Hypertension: On Norvasc, lisinopril, hydrochlorothiazide, Lopressor Monitor BP -blood pressure remains low at 94/56 Will discontinue amlodipine-blood pressure remains stable Blood pressure remains stable Prolonged QTC Avoid QTC prolonging meds as able Hyperlipidemia on statin Aortic stenosis S/P TAVR Continue home meds Compression fractures Pain control PT, OT when stable. Code Status DNI/DNR Prognosis remains poor Medically stable to be discharged when approved Accepted at [facility] and will be transferred this afternoon Total Time Total Time Spent Total Time Spent (In Minutes): 40 minutes Discharge Plan Discharge Items Patient Disposition: Transfer [facility] Fac Reason For Visit: WEAKNESS Discharge Diagnosis: Acute respiratory failure with hypoxia, left pleural effusion status post thoracentesis, acute on chronic diastolic heart failure, chronic kidney disease, chronic anemia Condition on Discharge: Fair Activity: As commented below Activity Comment: Will need assistance in ADL S Non-emergency contact: Primary Care Provider Call non-emergency contact if: you have any medication questions and your symptoms worsen Follow-up/Referrals: Carlyle Garcia MD [Primary Care Provider] - Diet: Regular Addtl Attending Provider Instructions: Please take extreme precautions to avoid falls Please take your medications as advised Continue PT and OT Pending Studies at Discharge: No Stand-Alone Forms: [facility] Skilled Items Patient informed of condition?: Yes DNR: Yes Discharge Level of Care: Skilled Communicable Disease: No Discharge Prognosis: Stable Lines: None Urinary Catheter: No Medications and DC Order Prescriptions: New lidocaine 5 % Adhesive Patch,Medicated 1 patch transdermal QAM Qty: 30 RF: 0 potassium chloride 20 mEq tablet extended release 20 meq PO DAILY Qty: 30 RF: 0 Continued atorvastatin 80 mg Tablet 80 mg PO QAM RF: 0 amlodipine [Norvasc] 5 mg Tablet 10 mg PO HS RF: 0 lisinopril 10 mg Tablet 10 mg PO QAM RF: 0 metoprolol tartrate [Lopressor] 50 mg Tablet 50 mg PO BID RF: 0 hydrochlorothiazide 25 mg Tablet 25 mg PO QAM RF: 0 Eliquis 2.5 mg tablet 2.5 mg PO BID RF: 0 cetirizine 1 mg/mL solution 5 mg PO DAILY RF: 0 acyclovir 400 mg tablet 400 mg PO DAILYBB RF: 0 Discharge Orders: Discharge Order (Routine); Ordered 10/29/20 Ordered By: Burke Moore Admission Data Admit Date/Time: 10/20/20 23:59 Attending Provider: Burke Moore Admit Provider: Davy Donovan Primary Care Provider: Carlyle Garcia Other Providers: Davy Donovan ; Shannon Howell ; Paolo Ojeda ; Omar Perales ; Stefano Gordon ; Kole Pena ; Kailash Izaguirre ; Hermelindo Be ; Gerson Guerin ; Olivia Gan ; Anny Fernandez ; Arabella Woodward ; Dre Erickson ; Tank Story ; [facility] ; [facility] ; [facility] [place] Other Interventions: Discharge Summary Assessment (RN) Last Done: 10/29/20 14:10
== END 2020-10-29 15:56 | DRG 291 ==
LOC: ED 20:39 → SUATTDRO 23:59 → 3E 23:59

== ENCOUNTER 2020-11-10 17:18 | Inpatient (IN) ==
--- NOTE | 2020-11-10 17:55 | Emergency Department Note ---
History of Present Illness General Chief complaint: Illness Stated complaint: low spo2 Time Seen by Provider: 11/10/20 17:31 Source: patient Mode of arrival: EMS Limitations: no limitations History of Present Illness Provider complaint: chest pain, shortness of breath Onset (ago): hour(s) Location: chest Radiation: non-radiation Severity: moderate Quality: + aching Relieved By: + none Exacerbated By: + movement Associated symptoms: + malaise and + shortness of breath; no cough, no loss of appetite or no nausea/vomiting Treatments prior to arrival: other This is an 80-year-old female presents due to concern for chest pain and shortness of breath. Patient states she had chest pain for several hours prior to staff at [facility] coming to evaluate her. Patient states she does have a history of chest pain although the today's episode was more central and different in quality than the prior chest pain she had had that was left-sided and under the left breast. Patient was recently admitted for shortness of breath and did undergo thoracentesis. Patient does have extensive cardiac and pulmonary history otherwise. Patient states she has been wearing oxygen and states when she complained of the chest pain staff [facility] turned her oxygen up. Patient states she does not take any other breathing treatments. Patient states pain is slightly improved now that she is here. Patient was turned up to between 4 and 5 L/min of oxygen to maintain oxygen saturations in the 90s as when she was on her initial 2 L/min her sats had dropped into the 80s while at [facility]. Pt seen during a time of high acuity and national emergency pandemic while wearing PPE. Home Medications Medication Instructions Recorded Confirmed Type amlodipine 5 mg tablet (Norvasc) 10 mg PO HS 06/21/18 11/10/20 History atorvastatin 80 mg tablet 80 mg PO QAM 06/21/18 11/10/20 History hydrochlorothiazide 25 mg tablet 25 mg PO QAM 06/21/18 11/10/20 History lisinopril 10 mg tablet 10 mg PO QAM 06/21/18 11/10/20 History metoprolol tartrate 50 mg tablet 50 mg PO BID 06/21/18 11/10/20 History (Lopressor) apixaban 2.5 mg tablet (Eliquis) 2.5 mg PO BID 08/25/20 11/10/20 History cetirizine 1 mg/mL oral solution 5 mg PO DAILY 08/25/20 11/10/20 History acyclovir 400 mg tablet 400 mg PO DAILYBB 10/20/20 11/10/20 History lidocaine 5 % topical patch 1 patch TRANSDERMAL QAM #30 ea 10/29/20 11/10/20 Rx potassium chloride 20 mEq 20 meq PO DAILY #30 tab 10/29/20 11/10/20 Rx tablet,extended release Allergies Allergy/AdvReac Type Severity Reaction Status Date / Time No Known Allergies Allergy Verified 10/20/20 21:48 Past Med/Surg History Medical History Acute respiratory failure with hypoxia Anemia Basal cell carcinoma left eye lid Bilateral pleural effusion Cancer MULTIPLE MYELOMA Cancer of [place] of right eye Carotid artery stenosis Chronic kidney disease UNKNOWN STAGE. NO DIAYLSIS NEEDED. Decreased appetite Depression Diastolic CHF, acute on chronic Hyperlipidemia Hypertension Moderate protein-energy malnutrition Osteoporosis Palliative care encounter Peripheral neuropathy Pulmonary hypertension Pulmonary hypertension Shortness of breath Surgical History History of cataract surgery BILATERAL History of heart valve replacement "PIG VALVE" AORTIC VALVE REPLACEMENT. (11/30/2016) ARI ARTEAGA. 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 [facility] Feels Safe at Home: No Is there a partner from a previous relationship who is making you feel unsafe now?: No Assistive Devices: Walker Review of Systems A total of 10 systems reviewed and were otherwise negative All systems reviewed & are unremarkable except as noted in HPI & below Physical Exam Vital Signs Vital Signs - 24 hr 11/10/20 18:54 11/10/20 19:11 11/10/20 21:00 Temperature 37 C Temperature Source Oral Pulse Rate 81 77 Pulse Rate [Apical] 77 91 H Pulse Rate from SpO2 Sensor 81 Pulse Rhythm [Apical] Regular Regular Pulse Strength [Apical] Normal Respiratory Rate 18 18 18 Respiratory Effort / Characteristics Non-Labored Respiratory Depth Normal Normal Respiratory Pattern Regular Blood Pressure 141/68 H 144/68 H Blood Pressure [Left Arm] 141/68 H Blood Pressure Mean 92 93 Blood Pressure Mean [Left Arm] 92 Blood Pressure Position [Left Arm] Pulse Oximetry 96 95 95 Oxygen Delivery Method Room Air Room Air Sepsis Recent Fever Within 48 Hours No Sepsis New/Unexplained Change in Mental Status No Sepsis Action Taken by Nursing No Action Required 11/10/20 23:15 11/10/20 23:48 Temperature Temperature Source Pulse Rate 81 Pulse Rate [Apical] 82 Pulse Rate from SpO2 Sensor 81 Pulse Rhythm [Apical] Pulse Strength [Apical] Respiratory Rate 21 26 H Respiratory Effort / Characteristics Non-Labored Spontaneous Respiratory Depth Normal Respiratory Pattern Regular Blood Pressure 118/80 Blood Pressure [Left Arm] 118/80 Blood Pressure Mean 92 Blood Pressure Mean [Left Arm] 92 Blood Pressure Position [Left Arm] Lying Pulse Oximetry 99 99 Oxygen Delivery Method Room Air Sepsis Recent Fever Within 48 Hours Sepsis New/Unexplained Change in Mental Status Sepsis Action Taken by Nursing GENERAL: alert, unwell appearing, well nourished, no distress, non-toxic, NC in place EYE EXAM: normal conjunctiva, PERRL and EOM's grossly intact OROPHARYNX: no exudate, no erythema, lips, buccal mucosa, and tongue normal and mucous membranes are moist NECK: supple, no nuchal rigidity, no adenopathy, non-tender LUNGS: Clear to auscultation. Normal chest wall mechanics, no w/r/r HEART: no murmurs, S1 normal and S2 normal, mild reproducible chest wall tenderness ABDOMEN: abdomen soft, non-tender, normo-active bowel sounds, no masses, no rebound or guarding. BACK: Back is symmetrical on inspection and there is no deformity, no midline tenderness, no CVA tenderness. SKIN: no rashes and no bruising UPPER EXTREMITIES: upper extremities are grossly normal. FROM, nml pulses b/l. LOWER EXTREMITIES: Trace b/l pitting edema. FROM, nml pulses b/l. NEURO EXAM: Normal sensorium, cranial nerves II-XII grossly intact, normal speech, no gross weakness of arms, no gross weakness of legs. Gross sensation intact. Course Course 2101: Updated pt on results. She is agreeable with plan for inpatient therapy at this time. 2139: Discussed with Dr. Sprague. Administered Medications Apixaban (Apixaban 2.5 Mg Tab) 2.5 mg PO BID SUMEET Stop: 12/10/20 22:31 Last Admin: 11/10/20 23:52 Dose: 2.5 mg Documented by: [id number] Metoprolol Tartrate (Metoprolol Tartrate 50 Mg Tab) 50 mg PO BID SUMEET Stop: 12/10/20 22:44 Last Admin: 11/10/20 23:52 Dose: 50 mg Documented by: [id number] Discontinued Medications Furosemide (Furosemide 40 Mg/4 Ml Vial) 40 mg IV NOW STA Stop: 11/10/20 21:45 Last Admin: 11/10/20 22:24 Dose: 40 mg Documented by: [id number] Magnesium Sulfate/Dextrose (Magnesium Sulfate / D5w) 1 gm in 100 mls @ 100 mls/hr IV Q1H SUMEET Stop: 11/10/20 23:46 Last Infusion: 11/11/20 01:00 Dose: 0 mls/hr Documented by: [id number] Admin: 11/10/20 23:53 Dose: 100 mls/hr Documented by: [id number] Infusion: 11/10/20 23:24 Dose: 100 mls/hr Documented by: [id number] Admin: 11/10/20 22:24 Dose: 100 mls/hr Documented by: [id number] Albumin Human (Albumin 5%) 250 mls @ 500 mls/hr IV ONE ONE Stop: 11/11/20 01:29 Last Admin: 11/11/20 01:53 Dose: 500 mls/hr Documented by: [id number] Medical Decision Making Differential Diagnosis Differential diagnoses includes but is not limited to pneumonia, bronchitis, COPD/Asthma exacerbation, pneumothorax, pulmonary embolism, congestive heart failure, acute coronary syndrome Medical Records Attestation: I reviewed the patient's medical records. Home Medications Current Medication List: was personally reviewed by me Laboratory Data Attestation: I reviewed the patient's lab results. Result diagrams: 11/10/20 18:25 11/10/20 18:25 Lab Results 11/10/20 11/10/20 11/10/20 Range/Units 18:25 18:25 22:00 WBC 7.66 (4.8-10.8) K/uL RBC 2.42 L (4.2-5.4) M/uL Hgb 7.7 L (12.0-16.0) g/dL Hct 23.7 L (37-47) % MCV 97.9 (80-100) fL MCH 31.8 (25-34) pg MCHC 32.5 (32-36) g/dL RDW Std Deviation 62.7 H (36.4-46.3) fL RDW Coeff of Chaparrita 17.6 H (11.5-14.5) % Plt Count 137 (130-400) K/uL MPV 9.3 (7.4-10.4) fL Immature Gran % (Auto) 2.2 % Neut % (Auto) 69.7 % Lymph % (Auto) 15.7 % [place] % (Auto) 11.6 % Eos % (Auto) 0.5 % Baso % (Auto) 0.3 % Neut # (Auto) 5.34 (1.4-6.5) K/uL Lymph # (Auto) 1.20 (1.2-3.4) K/uL [place] # (Auto) 0.89 H (0.11-0.59) K/uL Eos # (Auto) 0.04 (0-0.5) K/uL Baso # (Auto) 0.02 (0-0.2) K/uL Immature Gran # (Auto) 0.17 H (0.00-0.02) K/uL RBC Morphology Unremarkable Sodium 137 (136-145) mmol/L Potassium 4.2 (3.5-5.1) mmol/L Chloride 107 (98-107) mmol/L Carbon Dioxide 24 (21-32) mmol/L Anion Gap 6.0 (3-11) BUN 49 H (7-18) mg/dl Creatinine 1.58 H (0.6-1.2) mg/dl Est Cr Clr Drug Dosing Not Reportable Est GFR ( Amer) 34.9 ml/min Est GFR (Non-Af Amer) 30.2 ml/min BUN/Creatinine Ratio 30.9 H (10-20) Glucose 111 H (70-99) mg/dl Calcium 10.3 H (8.5-10.1) mg/dl Magnesium 1.3 L (1.8-2.4) mg/dl Total Bilirubin 1.0 (0.2-1) mg/dl AST 40 H (15-37) U/L ALT 21 (12-78) U/L Alkaline Phosphatase 101 (45-117) U/L Troponin I 0.073 H* (0-0.045) ng/ml NT-Pro-B Natriuret Pep 18556 H (0-1800) pg/ml Total Protein 11.5 H (6.4-8.2) gm/dl Albumin 2.8 L (3.4-5.0) gm/dl Globulin 8.7 H (2.5-4.0) gm/dl Albumin/Globulin Ratio 0.3 L (0.9-2) COVID-19 Eval Order Covid19 at [facility] SARS-CoV-2 (PCR) (Negative) 11/10/20 Range/Units 22:00 WBC (4.8-10.8) K/uL RBC (4.2-5.4) M/uL Hgb (12.0-16.0) g/dL Hct (37-47) % MCV (80-100) fL MCH (25-34) pg MCHC (32-36) g/dL RDW Std Deviation (36.4-46.3) fL RDW Coeff of Chaparrita (11.5-14.5) % Plt Count (130-400) K/uL MPV (7.4-10.4) fL Immature Gran % (Auto) % Neut % (Auto) % Lymph % (Auto) % [place]cock % (Auto) % Eos % (Auto) % Baso % (Auto) % Neut # (Auto) (1.4-6.5) K/uL Lymph # (Auto) (1.2-3.4) K/uL [place] # (Auto) (0.11-0.59) K/uL Eos # (Auto) (0-0.5) K/uL Baso # (Auto) (0-0.2) K/uL Immature Gran # (Auto) (0.00-0.02) K/uL RBC Morphology Sodium (136-145) mmol/L Potassium (3.5-5.1) mmol/L Chloride (98-107) mmol/L Carbon Dioxide (21-32) mmol/L Anion Gap (3-11) BUN (7-18) mg/dl Creatinine (0.6-1.2) mg/dl Est Cr Clr Drug Dosing Est GFR ( Amer) ml/min Est GFR (Non-Af Amer) ml/min BUN/Creatinine Ratio (10-20) Glucose (70-99) mg/dl Calcium (8.5-10.1) mg/dl Magnesium (1.8-2.4) mg/dl Total Bilirubin (0.2-1) mg/dl AST (15-37) U/L ALT (12-78) U/L Alkaline Phosphatase (45-117) U/L Troponin I (0-0.045) ng/ml NT-Pro-B Natriuret Pep (0-1800) pg/ml Total Protein (6.4-8.2) gm/dl Albumin (3.4-5.0) gm/dl Globulin (2.5-4.0) gm/dl Albumin/Globulin Ratio (0.9-2) COVID-19 Eval Order SARS-CoV-2 (PCR) NEGATIVE (Negative) Imaging Data Radiologist's Impression: Chest X-Ray 11/10/20 17:50 XR chest 1V portable HISTORY: Shortness of breath. COMPARISON: 10/22/2020. FINDINGS: Diffuse interstitial thickening with perihilar airspace opacities have progressed. This consistent with worsening pulmonary edema. Small right and moderate left pleural effusions are again noted. No pneumothorax. The heart is enlarged. An aortic valve stent is noted. IMPRESSION: Interval progression of the moderate pulmonary edema with bilateral pleural effusions. ACT 112: Negative or not required by law. Electronically signed by: Aureliano Davis M.D. 11/10/2020 6:39 PM ECG Data Attestation: I personally reviewed and interpreted this ECG as follows: Indication: + chest pain Rate (beats per minute): 82 Rhythm: + normal sinus ECG Intervals/blocks: + Left bundle branch block and + Normal QT ECG [place]: + Left axis deviation ECG ST segments: + Nonspecific ST abnormalities Comparison ECG Date: from (10/21/2020) Change: no significant change MDM Narrative This is an 80 yo female who presents c/o chest pain and dyspnea and was found to be tachypneic and hypoxic [facility] who turned up her oxygen via NC from 2 lpm to 4-5 lpm. Pain improved by my evaluation and no apparent respiratory distress however pt was initially still 91% on 5 lpm. Labs sent and cxr performed. Paperwork accompanying confirm DNR/DNI. CXR appears worse compared to prior. Troponin and BNP elevated, however have been elevated previously. No acute EKG findings. Patient confirms she is not seeking treatment for multiple myeloma. Patient risk factors for and hx of CAD. Pleural effusion also appears worsening again despite recent drainage of >500 ml. Anemia apperas worse compared to prior in additional. Patient denied and blood loss including melena given her anticoagulation. Given downward trend since last discharge I suspect more likely chronic. Anemia likely contributing to cardiac demand ischemia given elevated troponin in addition. Patient has previously been transfused. In bedside discussion regarding her goals of care given she has refused some treatments and has previously had a palliative care consult. Patient was in agreement with plan for additional inpatient monitoring and evaluation. An order was placed for continuous cardiac monitoring. The monitor shows a rate of __72 with _normal sinus_ rhythm. Impression & Plan Chest pain, Hypoxia, Hypomagnesemia, Acute dyspnea, Anemia Discharge Plan Visit Data Chief Complaint: Illness Stated Complaint: low spo2 ED Provider: Shannon Silverman Discharge Problem: Chest pain, Hypoxia, Hypomagnesemia, Acute dyspnea, Anemia Patient Disposition: Admitted As Inpatient Condition: Fair Discharge Instructions Interventions: ED Discharge Assessment Last Done: 11/11/20 01:44
[2020-11-10 18:37] LABS: Basophils # (auto) 0.02 K/uL (0-0.2); Basophils % (auto) 0.3 %; Eosinophils # (auto) 0.04 K/uL (0-0.5); Eosinophils % (auto) 0.5 %; Hematocrit (blood only) 23.7 % (37-47); Hemoglobin 7.7 g/dL (12.0-16.0); Immature Granulocytes # (auto) 0.17 K/uL (0.00-0.02); Immature Granulocytes % (auto) 2.2 %; Lymphocytes % (auto) 15.7 %; Mean Corpuscular Hemoglobin 31.8 pg (25-34); Mean Corpuscular Hgb Conc 32.5 g/dL (32-36); Mean Corpuscular Volume 97.9 fL (80-100); Mean Platelet Volume 9.3 fL (7.4-10.4); Monocytes # (auto) 0.89 K/uL (0.11-0.59); Monocytes % (auto) 11.6 %; Neutrophils # (auto) 5.34 K/uL (1.4-6.5); Neutrophils % (auto) 69.7 %; Platelet Count 137 K/uL (130-400); RDW Coefficient of Variation 17.6 % (11.5-14.5); RDW Standard Deviation 62.7 fL (36.4-46.3); Red Blood Count 2.42 M/uL (4.2-5.4); White Blood Count 7.66 K/uL (4.8-10.8)
--- NOTE | 2020-11-10 18:41 | XRay Report ---
XR chest 1V portable HISTORY: Shortness of breath. COMPARISON: 10/22/2020. FINDINGS: Diffuse interstitial thickening with perihilar airspace opacities have progressed. This con sistent with worsening pulmonary edema. Small right and moderate left pleural effusions are again not ed. No pneumothorax. The heart is enlarged. An aortic valve stent is noted. IMPRESSION: Interval progression of the moderate pulmonary edema with bilateral pleural effusions. ACT 112: Negative or not required by law. Electronically signed by: Aureliano Davis M.D. 11/10/2020 6:39 PM
[2020-11-10 18:57] LABS: Alanine Aminotransferase 21 U/L (12-78); Albumin Level 2.8 gm/dl (3.4-5.0); Aspartate Aminotransferase 40 U/L (15-37); BUN Creatinine Ratio 30.9 (10-20); Blood Urea Nitrogen 49 mg/dl (7-18); Calcium 10.3 mg/dl (8.5-10.1); Carbon Dioxide 24 mmol/L (21-32); Chloride 107 mmol/L (98-107); Est GFR (African American) 34.9 ml/min; Est GFR (Non-African American) 30.2 ml/min; Glucose 111 mg/dl (70-99); Magnesium 1.3 mg/dl (1.8-2.4); Potassium 4.2 mmol/L (3.5-5.1); Sodium 137 mmol/L (136-145)
[2020-11-10 19:12] LABS: RBC Morphology Unremarkable
[2020-11-10 19:16] LABS: Albumin Globulin Ratio 0.3 (0.9-2); Alkaline Phosphatase 101 U/L (45-117); Globulin 8.7 gm/dl (2.5-4.0); NT Pro B Type Natriuretic Pept 10807 pg/ml (0-1800); Total Protein 11.5 gm/dl (6.4-8.2); Troponin I 0.073 ng/ml (0-0.045)
[2020-11-10] MEDS ORDERED: FUROSEMIDE 40 MG/4 ML VIAL IV STA (21:44)
[2020-11-10] MEDS: MAGNESIUM SULFATE / D5W 1 GM/100 ML BAG IV SCH ×2 (22:24→23:53)
--- NOTE | 2020-11-10 22:57 | History & Physical Report ---
Date of Service November 10, 2020 Assessment & Plan (1) Diastolic CHF, acute on chronic: (2) Pulmonary hypertension: (3) History of transcatheter aortic valve replacement (TAVR): (4) Shortness of breath: (5) Decreased appetite: (6) Palliative care encounter: (7) Moderate protein-energy malnutrition: (8) Bilateral pleural effusion: (9) Acute respiratory failure with hypoxia: Plan: Tamie Lopez is an 80 yo female with complex PMHx that includes Multiple Mye paula, HFpEF, HLD, HTN, Aortic Stenosis s/p TAVR, CKD3, peripheral polyneuropathy, bladder tumor that was removed 01/20, non-melanoma skin cancer and compression fractures, who presented to [facility] ED from [facility] on 11/10 for progressive shortness of breath - found to be in acute hypoxic respiratory failure. Acute Hypoxic Respiratory Failure; Bilateral Pleural Effusions; Severe Protein Calorie Malnutrition Progressive dyspnea on exertion, PND and orthopnea for ~1 week. Required 4-5L NC in ED to maintain SpO2 >90%. BNP 19888 and CXR showing interval progression of bilateral pleural effusions (L > R). Multifactorial etiologies --> acute on chronic HFpEF, severe protein calorie malnutrition, pleural effusions. - Lasix 40mg IV x1 in the ED, will order another dose in 6 hours - Albumin 5% infusion in between Lasix doses - construction laborer consult placed - appreciate assistance in PO intake - consider Pulmonology consult in the AM for possible therapeutic thoracentesis, if volume/oxygen status is not improved - repeat CXR in the AM - trend BMP daily Goals of Care Patient is chronically deteriorating and appears to be more frail and with more severe malnutrition/failure to thrive than last hospitalization last month. Had discussion with Palliative Care during last admission. - consulted Palliative care - appreciate recs Elevated Troponin Troponin .073, was .125 during last admission. Patient has reproducible chest wall pain unlikely to be cardiac in origin, and EKG is without ST/T changes. Suspect demand ischemia in light of above. - trend to peak - treat underlying causes as stated above Normocytic Anemia Hgb 7.7 here, baseline ~8-10. No signs of active bleeding. Suspect worsening anemia of chronic disease due to complicated PMHx that includes MM and CKD. - transfuse as necessary for Hgb <7 (patient was transfused during previous hospitalization in 10/2020) Hypomagnesemia Mg 1.3. Likely will continue to be low in setting of Lasix infusions. - repleting - repeat BMP/Mg/Phos in the AM CKDIII Cr 1.58, approximate baseline. - continue to monitor renal function Hypertension - continue home hydrochlorothiazide, Lopressor - held Amlodipine and Lisinopril for now, pending Lasix x2 and BP response Prolonged QTc QTc 486 ms. - Avoid QTC prolonging meds as able Hyperlipidemia - continue statin Aortic stenosis S/P TAVR - Continue home meds Compression fractures - Pain control PRN - PT, OT when stable FEN/GI: heart-healthy diet DVT Prophylaxis: Eliquis 2.5 mg PO BID Code Status: DNR/DNI Disposition: med/surg with tele, CM consulted for d/c planning (10) Anemia: History of Present Illness Chief Complaint: shrotness of breath Primary Care Provider: [facility] Tamie Lopez is an 80 yo female with complex PMHx that includes Multiple Myeloma, HFpEF, HLD, HTN, Aortic Stenosis s/p TAVR, CKD3, peripheral polyneuropathy, bladder tumor that was removed 01/20, non-melanoma skin cancer and compression fractures, who presented to [facility] ED from [facility] on 11/10 for progressive shortness of breath. Patient reports worsening shortness of breath, dyspnea on exertion, orthopnea and paroxysmal nocturnal dyspnea for several days. Reports minimal PO intake over the last several weeks although occasionally eats chicken noodle soup. Patient reports that her appetite has been steadily declining over the last several weeks and she is not sure why. She also reports several days of chest pressure although the pain is reproducible on palpation of chest. Also reports worsening generalized weakness and fatigue associated with decreased appetite. Tamie was recently admitted to [facility] for acute hypoxic respiratory failure in context of bilateral pleural effusions and HFpEF exacerbation - underwent left thoracentesis of 560cc transudative fawn-colored fluid likely due to HFpEF. Patient was also transfused 2 units of pRBCs for Hgb <7 likely in context of anemia of chronic disease (no active bleeding). Palliative care was consulted at that time for worsening protein calorie malnutrition and failure to thrive in addition to complex PMHx - hospice was discussed but declined by patient. Patient was discharged to [facility] facility on 10/29 but developed above- mentioned symptoms so was sent here. No recent changes in medications. In the ED the patient was hypoxic to mid 80s and started on 4L NC; subsequently SpO2 remained >92% and other VSS/WNL. Laboratory evaluation was notable for Hgb 7.7 (baseline ~8-10), Cr 1.58 (baseline 1.5 - 1.8), BNP 88260 (~06685 at last admission), Troponin .073. Imaging showed interval progression of bilateral pleural effusions (L > R) and pulmonary edema. Allergies Allergy/AdvReac Type Severity Reaction Status Date / Time No Known Allergies Allergy Verified 10/20/20 21:48 Home Medications Medication Instructions Recorded Confirmed Type amlodipine 5 mg tablet (Norvasc) 10 mg PO HS 06/21/18 11/10/20 History atorvastatin 80 mg tablet 80 mg PO QAM 06/21/18 11/10/20 History hydrochlorothiazide 25 mg tablet 25 mg PO QAM 06/21/18 11/10/20 History lisinopril 10 mg tablet 10 mg PO QAM 06/21/18 11/10/20 History metoprolol tartrate 50 mg tablet 50 mg PO BID 06/21/18 11/10/20 History (Lopressor) apixaban 2.5 mg tablet (Eliquis) 2.5 mg PO BID 08/25/20 11/10/20 History cetirizine 1 mg/mL oral solution 5 mg PO DAILY 08/25/20 11/10/20 History acyclovir 400 mg tablet 400 mg PO DAILYBB 10/20/20 11/10/20 History lidocaine 5 % topical patch 1 patch TRANSDERMAL QAM #30 ea 10/29/20 11/10/20 Rx potassium chloride 20 mEq 20 meq PO DAILY #30 tab 10/29/20 11/10/20 Rx tablet,extended release Past Med/Surg History Medical History (Updated 11/11/20 @ 23:21 by RIAZ Wallace) Acute respiratory failure with hypoxia Anemia Basal cell carcinoma left eye lid Bilateral pleural effusion Cancer MULTIPLE MYELOMA Cancer of [place] of right eye Carotid artery stenosis Chronic kidney disease UNKNOWN STAGE. NO DIAYLSIS NEEDED. Decreased appetite Depression Diastolic CHF, acute on chronic Hyperlipidemia Hypertension Moderate protein-energy malnutrition Osteoporosis Palliative care encounter Peripheral neuropathy Pulmonary hypertension Pulmonary hypertension Shortness of breath Weakness Surgical History History of cataract surgery BILATERAL History of heart valve replacement "PIG VALVE" AORTIC VALVE REPLACEMENT. (11/30/2016) ARI ARTEAGA. 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 When not there, lives at the [facility] in [place] with HH. Feels Safe at Home: No Is there a partner from a previous relationship who is making you feel unsafe now?: No and Hesitant to Answer Assistive Devices: Oxygen - Continuous and Walker Review of Systems Review of Systems: All systems reviewed & are unremarkable except as noted in HPI & below Physical Exam Physical Exam: General: A&Ox3. NAD. Cooperative. HEENT: Atraumatic, normocephalic. Pulm: CTAB A&P. -wheezes, -rales, -rhonchi. Symmetrical chest rise. No increase work of breathing. No respiratory distress. Chest: pectus carinatum, mild tenderness to palpation of sternum Cardiac: RRR, -mrg. Radial pulses intact and symmetrical. No LE edema. Abdominal: soft, non-tender, non-distended, BS x 4 Skin: warm, dry, no rash Results & Data Results & Data ([facility]) Vital Signs (Past 12 Hours) Vital Signs Temp Pulse Pulse Resp BP BP Pulse Ox 11/10/20 21:00 91 H 18 141/68 H 95 11/10/20 19:11 37 C 77 77 18 144/68 H 95 Code Status & VTE Plan VTE Prophylaxis Plan VTE Prophylaxis will be ordered: Yes Supervising Physician Co-Signing Physician Notes Patient seen and examined, chart reviewed, case discussed with Dr. Workman and I agree with his assessment and plan as above. In brief, patient is an 80yo female with multiple medical comorbidities presenting with progressive SOB, VEE and orthopnea. She was recently admitted to [facility] for hypoxic respiratory failure - found to have pleural effusions s/p left thoracentesis with 560mL fluid removal - thought to be secondary to HFpEF as well as malnutrition On exam she is afebrile, HD stable, hypoxic in the ER to 80's on 4L NC Nontoxic in appearance, AA&O x 3 HEENT - NC/AT, PERRL, MMM, Neck supple Heart - +S1/S2, regular, pectus carinatum with sternal tenderness Lungs - CTA, no rales/ronchi/wheezes Abd - +BS, soft, NT/ND Ext -no edema Labs an dimages reviewed Assessment/Plan -Diuresis, monitor I/Os, weights -Palliative care consultation appreciated -Remainder of plan as above Resident Activity Tracking Resident Involvement: Resident Care Provided Care Provided: Adult Hospital Medicine
[2020-11-10] MEDS ORDERED: MAGNESIUM SULFATE / D5W 1 GM/100 ML BAG IV STA (23:06)
[2020-11-10] MEDS: METOPROLOL TARTRATE 50 MG TAB PO SCH (23:52)
[2020-11-10] MEDS: APIXABAN 2.5 MG TAB PO SCH (23:52)
[2020-11-11] MEDS ORDERED: ALBUMIN 5% 250 ML IV ONE (01:00)
[2020-11-11] MEDS ORDERED: ACETAMINOPHEN 325 MG TAB PO PRN (02:22)
[2020-11-11] MEDS ORDERED: FUROSEMIDE 40 MG/4 ML VIAL IV ONE (03:30)
[2020-11-11 03:53] LABS: Basophils # (auto) 0.02 K/uL (0-0.2); Basophils % (auto) 0.3 %; Eosinophils % (auto) 1.5 %; Hematocrit (blood only) 22.8 % (37-47); Hemoglobin 7.4 g/dL (12.0-16.0); Immature Granulocytes % (auto) 1.5 %; Lymphocytes # (auto) 1.01 K/uL (1.2-3.4); Lymphocytes % (auto) 15.1 %; Mean Corpuscular Hemoglobin 32.2 pg (25-34); Mean Corpuscular Hgb Conc 32.5 g/dL (32-36); Mean Corpuscular Volume 99.1 fL (80-100); Mean Platelet Volume 8.9 fL (7.4-10.4); Monocytes # (auto) 0.42 K/uL (0.11-0.59); Monocytes % (auto) 6.3 %; Neutrophils # (auto) 5.02 K/uL (1.4-6.5); Neutrophils % (auto) 75.3 %; Nucleated RBC # (auto) 0.05 K/uL (0-0); Nucleated RBC % (auto) 0.8 %; Platelet Count 133 K/uL (130-400); RDW Coefficient of Variation 17.8 % (11.5-14.5); RDW Standard Deviation 63.7 fL (36.4-46.3); White Blood Count 6.67 K/uL (4.8-10.8)
[2020-11-11 04:09] LABS: BUN Creatinine Ratio 29.2 (10-20); Calcium 9.8 mg/dl (8.5-10.1); Creatinine Clr Calc Pharmacy 21.1 ml/min; Est GFR (African American) 35.8 ml/min; Est GFR (Non-African American) 30.9 ml/min; Magnesium 2.1 mg/dl (1.8-2.4); Potassium 3.7 mmol/L (3.5-5.1)
[2020-11-11 04:14] LABS: RBC Morphology Unremarkable
[2020-11-11 04:27] LABS: Phosphorus 3.9 mg/dl (2.5-4.9); Troponin I 0.072 ng/ml (0-0.045)
[2020-11-11] MEDS: ATORVASTATIN 40 MG TAB PO SCH (08:13)
[2020-11-11] MEDS: hydroCHLOROthiazide 25 MG TAB PO SCH (08:13)
[2020-11-11] MEDS: POTASSIUM CHLORIDE CRTAB 20 MEQ TABCR PO SCH (08:14)
[2020-11-11] MEDS: LIDOCAINE 5% 1 PATCH TD SCH (08:14)
--- NOTE | 2020-11-11 08:57 | XRay Report ---
SINGLE VIEW CHEST CLINICAL HISTORY: Pleural effusions. FINDINGS: An AP, portable, upright chest radiograph is compared to study dated 11/10/2020. Correlation is made with chest CT dated 10/21/2020. The examination is degraded by portable technique and patient rotation. There is evidence of previous cardiac valve surgery. The heart is enlarged noting atheroscl erotic calcification of the thoracic aorta. There is pulmonary vascular congestion. Bilateral airspac e opacities are unchanged to slightly worsened from yesterday. There are layering pleural effusions, left larger than right with bibasilar consolidation. No pneumothorax is seen. The skeletal structures are osteopenic. The bony thorax is grossly intact. IMPRESSION: 1. Cardiomegaly with evidence of congestive failure. 2. Bilateral airspace opacities could represent pulmonary edema and/or multifocal pneumonia. This is unchanged to slightly worsened as compared to yesterday. 3. Left larger than right pleural effusions with bibasilar consolidation are similar to yesterday. ACT 112: Negative or not required by law. Electronically signed by: Ken Hannon M.D. 11/11/2020 8:55 AM
[2020-11-11] MEDS: APIXABAN 2.5 MG TAB PO SCH ×2 (10:46→20:50)
[2020-11-11] MEDS: METOPROLOL TARTRATE 50 MG TAB PO SCH ×2 (10:46→20:50)
--- NOTE | 2020-11-11 12:22 | Cardiology Consultation ---
Date of Consultation November 11, 2020 Assessment & Plan (1) Diastolic CHF, acute on chronic: (2) Pulmonary hypertension: (3) History of transcatheter aortic valve replacement (TAVR): (4) Decreased appetite: (5) Anemia: (6) Moderate protein-energy malnutrition: (7) Bilateral pleural effusion: (8) Acute respiratory failure with hypoxia: (9) Coronary artery disease: (10) Carotid artery disease: (11) Aortic stenosis: At this point, I believe this most recent admission represents that she is suffering from end-stage heart disease. She was seen by [facility] palliative care colleagues last admission and her CODE STATUS was changed. They were unable to address hospice care at that time but I believe that the most prudent course of action now. No benefit of repeating any cardiac testing at this time. Continue diuretic therapy for symptom control History of Present Illness Reason for Consultation: Shortness of breath Requesting Physician: Dr. Donovan Attending Physician: Isauro Guzman MD History of Present Illness Patient seen and examined, chart reviewed. She is a very pleasant 80-year-old womanWho once again presented to [facility] with complaints of shortness of breath after being recently discharged on October 29. She states that she felt her breathing started to go downhill shortly after discharge. She states that this point she feels as though she is lost the will to live and is not sure if she wants to go on. On last admission she had significant bilateral pleural effusions and underwent thoracentesis. Upon arrival to the emergency room her effusions have reaccumulated possibly more significantly than before. She has been started on IV diuretics and diuresing well. Allergies Allergy/AdvReac Type Severity Reaction Status Date / Time No Known Allergies Allergy Verified 10/20/20 21:48 Home Medications Medication Instructions Recorded Confirmed Type amlodipine 5 mg tablet (Norvasc) 10 mg PO HS 06/21/18 11/10/20 History atorvastatin 80 mg tablet 80 mg PO QAM 06/21/18 11/10/20 History hydrochlorothiazide 25 mg tablet 25 mg PO QAM 06/21/18 11/10/20 History lisinopril 10 mg tablet 10 mg PO QAM 06/21/18 11/10/20 History metoprolol tartrate 50 mg tablet 50 mg PO BID 06/21/18 11/10/20 History (Lopressor) apixaban 2.5 mg tablet (Eliquis) 2.5 mg PO BID 08/25/20 11/10/20 History cetirizine 1 mg/mL oral solution 5 mg PO DAILY 08/25/20 11/10/20 History acyclovir 400 mg tablet 400 mg PO DAILYBB 10/20/20 11/10/20 History lidocaine 5 % topical patch 1 patch TRANSDERMAL QAM #30 ea 10/29/20 11/10/20 Rx potassium chloride 20 mEq 20 meq PO DAILY #30 tab 10/29/20 11/10/20 Rx tablet,extended release Patient History Medical History Acute respiratory failure with hypoxia Anemia Basal cell carcinoma left eye lid Bilateral pleural effusion Cancer MULTIPLE MYELOMA Cancer of [place] of right eye Carotid artery stenosis Chronic kidney disease UNKNOWN STAGE. NO DIAYLSIS NEEDED. Decreased appetite Depression Diastolic CHF, acute on chronic Hyperlipidemia Hypertension Moderate protein-energy malnutrition Osteoporosis Palliative care encounter Peripheral neuropathy Pulmonary hypertension Pulmonary hypertension Shortness of breath Surgical History History of cataract surgery BILATERAL History of heart valve replacement "PIG VALVE" AORTIC VALVE REPLACEMENT. (11/30/2016) ARI ARTEAGA. FOLLOWS WITH DR JENNIFER Al of blepharoplasty Social History Smoking Status: Never smoker Second Hand Exposure: No; Hx Alcohol Use: No Hx Substance Use: No Preferred Language: Persian Communication Ability: Effective [place] Pilot Required: No Beliefs That Will Affect Care: None marital status: Single Current Living Situation: Correction Current Living Situation Comment: [facility]. When not there, lives at the [facility] in [place] with . Feels Safe at Home: No Is there a partner from a previous relationship who is making you feel unsafe now?: No and Hesitant to Answer Assistive Devices: Oxygen - Continuous and Walker Review of Systems Review of Systems: All systems reviewed & are unremarkable except as noted in HPI & below Physical Exam Physical Exam: General: Awake, alert and oriented x 3. No acute distress. HEENT: Normocephalic, atraumatic. Pupils equal, round and reactive to light and accommodation. Extraocular muscles are intact. Anicteric sclera. Moist mucous membranes. Neck: No JVD. No bruit. Cardiovascular: Regular. Positive S-4. Normal S-1 and S-2. No S-3. 3/6 mid to late systolic ejection murmur, greatest at the right sternal border, second intercostal space with radiation to the bilateral carotids. No rubs. Pulmonary: Poor air movement throughout with scattered rhonchi, crackles and wheezing. Abdomen: Bowel sounds x 4, soft. No rebound, guarding or tenderness. No organomegaly. Extremities: No clubbing, cyanosis or edema. +2 pedal pulses bilaterally. Skin: Warm and dry. Results & Data ([facility]) Vital Signs (Past 12 Hours) Vital Signs Temp Pulse Pulse Pulse Resp BP BP 11/11/20 11:05 36.5 C 84 20 113/64 11/11/20 07:43 75 11/11/20 07:10 36.4 C L 75 18 11/11/20 05:00 80 11/11/20 04:26 36.7 C 77 22 144/66 H 11/11/20 02:59 36.7 C 74 22 134/55 L 11/11/20 01:54 37.1 C 11/11/20 01:44 68 21 128/59 L 11/11/20 01:30 66 22 128/59 L 11/11/20 01:00 70 23 122/57 L 11/11/20 00:30 81 22 126/60 11/11/20 00:00 83 28 H 136/58 L 11/10/20 23:48 81 26 H 118/80 11/10/20 23:15 82 21 118/80 BP Pulse Ox 11/11/20 11:05 11/11/20 07:43 11/11/20 07:10 132/58 L 96 11/11/20 05:00 11/11/20 04:26 94 11/11/20 02:59 94 11/11/20 01:54 11/11/20 01:44 95 11/11/20 01:30 100 11/11/20 01:00 100 11/11/20 00:30 98 11/11/20 00:00 96 11/10/20 23:48 99 11/10/20 23:15 99 (1) Anemia Anemia type: unspecified type Qualified Code(s): D64.9 - Anemia, unspecified
--- NOTE | 2020-11-11 12:59 | Palliative Care Consultation ---
Date of Consultation November 11, 2020 Assessment & Plan (1) Palliative care encounter: This is an 80 year old female who presented to the [facility] from [facility] with worsening shortness of breath. She is a recent admission to [facility] and is known to the palliative medicine services from just a few weeks ago on admission. Tamie has a complex medical history that includes: Multiple Myeloma, HLD, HTN, Aortic Stenosis s/p TAVR, CKD3, peripheral polyneuropathy, bladder tumor that was removed 01/20, non-melanoma skin cancer and compression fractures. Her shortness of breath was evaluated and could be from multiple contributing factors including anemia of chronic disease and pleural effusions, which is consistent to her previous admission. Previous admission, Pulmonary performed a thoracentesis. Palliative Medicine was consulted to discuss goals of care and provide symptom management. I was able to talk with Tamie at length. She was sitting in her bedside chair, just taking some bites of lunch in no apparent distress. She expressed she wasn't sure what happened when she became short of breath. She did not recall meeting with me on her previous admission a few weeks ago. In talking about her code status, she confirmed being DNR/DNI, but did appear more confused compared to previous admission. SHe did confirm that she would want to continue to receive blood transfusions if necessary, along with full treatment short of resuscitation. She has an elderly 93 year old sister who lives in [place], and a brother whom she does not have much contact with. Elliott Stanford is listed as a contact on her chart [phone]. I called him without positive contact being made. I was unable to reach him during the last admission either. She mentioned that her friend on her floor of her apartment complex that she used to live on, Kiana Madrigal, is who she would want as her decision maker as 'she knows what to do with this type of thing'. Last admission, I did reach out to [facility] with [facility] [employer] to begin paperwork for this transition. BECKY has been involved with her care. Palliative medicine will follow to assist with decision making. (2) Diastolic CHF, acute on chronic: (3) Shortness of breath: (4) Decreased appetite: (5) Weakness: History of Present Illness Reason for Consultation: Goals of care Requesting Physician: Dr. Workman Attending Physician: Isauro Guzman MD History of Present Illness This is an 80 year old female who presented to the [facility] from [facility] with worsening shortness of breath. She is a recent admission to [facility] and is known to the palliative medicine services from just a few weeks ago on admi ssion. Tamie has a complex medical history that includes: Multiple Myeloma, HLD, HTN, Aortic Stenosis s/p TAVR, CKD3, peripheral polyneuropathy, bladder tumor that was removed 01/20, non-melanoma skin cancer and compression fractures. Her shortness of breath was evaluated and could be from multiple contributing factors including anemia of chronic disease and pleural effusions, which is consistent to her previous admission. Previous admission, Pulmonary performed a thoracentesis. Palliative Medicine was consulted to discuss goals of care and provide symptom management. Please see A/P for further details. Thanks for re-involving Palliative Medicine with this patient. Allergies Allergy/AdvReac Type Severity Reaction Status Date / Time No Known Allergies Allergy Verified 10/20/20 21:48 Home Medications Medication Instructions Recorded Confirmed Type amlodipine 5 mg tablet (Norvasc) 10 mg PO HS 06/21/18 11/10/20 History atorvastatin 80 mg tablet 80 mg PO QAM 06/21/18 11/10/20 History hydrochlorothiazide 25 mg tablet 25 mg PO QAM 06/21/18 11/10/20 History lisinopril 10 mg tablet 10 mg PO QAM 06/21/18 11/10/20 History metoprolol tartrate 50 mg tablet 50 mg PO BID 06/21/18 11/10/20 History (Lopressor) apixaban 2.5 mg tablet (Eliquis) 2.5 mg PO BID 08/25/20 11/10/20 History cetirizine 1 mg/mL oral solution 5 mg PO DAILY 08/25/20 11/10/20 History acyclovir 400 mg tablet 400 mg PO DAILYBB 10/20/20 11/10/20 History lidocaine 5 % topical patch 1 patch TRANSDERMAL QAM #30 ea 10/29/20 11/10/20 Rx potassium chloride 20 mEq 20 meq PO DAILY #30 tab 10/29/20 11/10/20 Rx tablet,extended release Patient History Medical History (Updated 11/11/20 @ 23:21 by RIAZ Wallace) Acute respiratory failure with hypoxia Anemia Basal cell carcinoma left eye lid Bilateral pleural effusion Cancer MULTIPLE MYELOMA Cancer of [place] of right eye Carotid artery stenosis Chronic kidney disease UNKNOWN STAGE. NO DIAYLSIS NEEDED. Decreased appetite Depression Diastolic CHF, acute on chronic Hyperlipidemia Hypertension Moderate protein-energy malnutrition Osteoporosis Palliative care encounter Peripheral neuropathy Pulmonary hypertension Pulmonary hypertension Shortness of breath Weakness Surgical History History of cataract surgery BILATERAL History of heart valve replacement "PIG VALVE" AORTIC VALVE REPLACEMENT. (11/30/2016) ARI ARTEAGA. 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 When not there, lives at the [facility] in [place] with . Feels Safe at Home: No Is there a partner from a previous relationship who is making you feel unsafe now?: No and Hesitant to Answer Assistive Devices: Oxygen - Continuous Review of Systems Review of Systems: [place] System Assessment Scale: Pain: 0/3 SOB: 1/3 Anxiety: 1/3 Tiredness: 0/3 Lack of appetite: 1/3 Palliative Performance Scale: 30% Physical Exam Constitutional: + frail appearing and cooperative Respiratory: Auscultation: + diminished lung sounds and + crackles Cardiovascular: Rate/Rhythm: regular rate and regular rhythm Heart Sounds: normal S1 and normal S2 Gastrointestinal (Abdomen): Inspection/Auscultation: abdomen normal to inspection Percussion/Palpation: abdomen soft Psychiatric: A+Ox3, euthymic affect Insight: + limited insight Judgement: + limited judgement Results & Data ([facility]) Vital Signs (Past 12 Hours) Vital Signs Temp Pulse Pulse Pulse Resp BP BP 11/11/20 11:05 36.5 C 84 20 113/64 11/11/20 07:43 75 11/11/20 07:10 36.4 C L 75 18 11/11/20 05:00 80 11/11/20 04:26 36.7 C 77 22 144/66 H 11/11/20 02:59 36.7 C 74 22 134/55 L 11/11/20 01:54 37.1 C 11/11/20 01:44 68 21 128/59 L 11/11/20 01:30 66 22 128/59 L 11/11/20 01:00 70 23 122/57 L BP Pulse Ox 11/11/20 11:05 98 11/11/20 07:43 11/11/20 07:10 132/58 L 96 11/11/20 05:00 11/11/20 04:26 94 11/11/20 02:59 94 11/11/20 01:54 11/11/20 01:44 95 11/11/20 01:30 100 11/11/20 01:00 100 PG Care Time/CCT Total # of Minutes Spent Total Time Spent with Patient: Total time spent is greater than 50% in coordination of care (as documented) at patient's floor/unit and/or counseling patient: 70 mintues with > 50% of that time spent assessing the patient, discussing goals of care with the patient, assessing symptom management and collaborating with IDT Coding Level of Care Code 81790 Initial Inpt Care Lvl 3 Diagnoses Palliative care encounter Z51.5 Diastolic CHF, acute on chronic I50.33 Shortness of breath R06.02 Decreased appetite R63.0 Weakness R53.1 Time Spent (min) 70
--- NOTE | 2020-11-11 15:15 | Electrocardiogram Report ---
Test Reason : Blood Pressure : / mmHG Vent. Rate : 082 BPM Atrial Rate : 082 BPM P-R Int : 146 ms QRS Dur : 122 ms QT Int : 416 ms P-R-T Axes : 055 -21 088 degrees QTc Int : 486 ms Normal sinus rhythm Left bundle branch block Abnormal ECG When compared with ECG of 21-OCT-2020 16:42, No significant change was found Confirmed by Familia Dove ([id number]) on 11/11/2020 3:15:17 PM Referred By: [facility] Confirmed By:Osbaldo Dove
--- NOTE | 2020-11-11 17:53 | Hospitalist Progress Note ---
Date of Service November 11, 2020 Assessment & Plan (1) Diastolic CHF, acute on chronic: Plan: Acute Hypoxic Respiratory Failure; Bilateral Pleural Effusions secondary to acute on chronic diastolic congestive heart failure exacerbation Per admitting service notes: Progressive dyspnea on exertion, PND and orthopnea for ~1 week. Required 4-5L NC in ED to maintain SpO2 >90%. BNP 08781 and CXR showing interval progression of bilateral pleural effusions (L > R). Multifactorial etiologies --> acute on chronic HFpEF, severe protein calorie malnutrition, pleural effusions. 11/11/2020 Remains on 5 L of O2 via nasal cannula Lasix 40 mg IV every 12 hours Adhesive Primer consulted-continue Lasix for symptom control Palliative care consulted- will discuss with patient's brother regarding goals of care Normocytic Anemia Per admitting service notes: Hgb 7.7 here, baseline ~8-10. No signs of active bleeding. Suspect worsening anemia of chronic disease due to complicated PMHx that includes MM and CKD. - transfuse as necessary for Hgb <7 (patient was transfused during previous hospitalization in 10/2020) Hypomagnesemia Mg 1.3. Replaced CKDIII Cr 1.58, approximate baseline. - continue to monitor renal function Hypertension - continue home hydrochlorothiazide, Lopressor - held Amlodipine and Lisinopril for now due to marginal blood pressure Prolonged QTc QTc 486 ms. - Avoid QTC prolonging meds as able Hyperlipidemia - continue statin Aortic stenosis S/P TAVR - Continue home meds Compression fractures - Pain control PRN - PT, OT when stable FEN/GI: heart-healthy diet DVT Prophylaxis: Eliquis 2.5 mg PO BID Code Status: DNR/DNI Disposition: med/surg with teleKRISTEN consulted for d/c planning Admission and Anticipated Discharge Date Admission Date: November 10, 2020 Subjective ff up for CHF, etc seen resting in bed, sleeping but easily arousable States breathing is improved compared to last night Has occasional chest discomfort Denies fevers or chills, cough, sputum production No palpitations or dizziness No abdominal pain, nausea vomiting No other symptoms States that she is just very tired, would like to go back to sleep Review of Systems Review of Systems: all noted and negative except for above Physical Exam Physical Exam: General- oriented x 3, not in distress, speaks in sentences with no effort or accessory muscle use Head- atraumatic Eyes- PERRL, EOMI, anicteric ENT- oropharynx clear Neck- supple, no JVD, no adenopathy, no thyromegaly; carotids +2/2, no bruits appreciated Lungs- (+) rales bilaterally Heart- normal rate, regular rhythm; (+) holosystolic murmur Abdomen- normal bowel sounds, nondistended, soft, nontender, no masses or hepatosplenomegaly Extremities-mild pretibial edema, no calf tenderness; peripheral pulses intact Neuro- alert, oriented x 3; CN 2-12 grossly intact; motor 5/5 bilaterally;sensation 100% on all extremities; no other gross focal neurologic deficits Skin- warm & dry Results & Data Results & Data ([facility]) Vital Signs (Past 12 Hours) Vital Signs Temp Pulse Pulse Resp BP BP Pulse Ox 11/11/20 15:03 36.8 C 72 18 116/60 94 11/11/20 14:20 68 11/11/20 11:05 36.5 C 84 20 113/64 98 11/11/20 07:43 75 11/11/20 07:10 36.4 C L 75 18 132/58 L 96 all noted and reviewed including below
[2020-11-11] MEDS: FUROSEMIDE 40 MG in SYRINGE 0 ML IV SCH (19:10)
--- NOTE | 2020-11-12 01:25 | Billing Data ---
Date of Service November 10, 2020 Coding Level of Care Code 96910 Initial Inpt Care Lvl 3
[2020-11-12] MEDS: FUROSEMIDE 40 MG in SYRINGE 0 ML IV SCH ×2 (06:28→18:49)
[2020-11-12] MEDS: APIXABAN 2.5 MG TAB PO SCH ×2 (08:55→20:10)
[2020-11-12] MEDS: METOPROLOL TARTRATE 50 MG TAB PO SCH ×2 (08:55→20:10)
[2020-11-12] MEDS: ATORVASTATIN 40 MG TAB PO SCH (08:56)
[2020-11-12] MEDS: hydroCHLOROthiazide 25 MG TAB PO SCH (08:56)
[2020-11-12] MEDS: LIDOCAINE 5% 1 PATCH TD SCH (08:56)
[2020-11-12] MEDS: POTASSIUM CHLORIDE CRTAB 20 MEQ TABCR PO SCH (08:58)
[2020-11-12] MEDS: MoRPHine SULFATE 5 MG/0.25 ML UDP PO PRN ×2 (09:21→23:19)
--- NOTE | 2020-11-12 12:35 | Cardiology Progress Note ---
Date of Service November 12, 2020 Assessment & Plan (1) Diastolic CHF, acute on chronic: (2) Pulmonary hypertension: (3) History of transcatheter aortic valve replacement (TAVR): (4) Decreased appetite: (5) Anemia: (6) Moderate protein-energy malnutrition: (7) Bilateral pleural effusion: (8) Acute respiratory failure with hypoxia: (9) Coronary artery disease: (10) Carotid artery disease: (11) Aortic stenosis: Plan: At this point, I believe this most recent admission represents that she is suffering from end-stage heart disease. Patient declined hospice therapy. We will continue with IV diuresis at this time. May consider repeat thoracentesis. Admission and Anticipated Discharge Date Admission Date: November 10, 2020 Subjective Patient seen and examined, chart reviewed. Patient more lethargic today. States that she believes her breathing is somewhat improved since admission. Denies chest pain, palpitations, lightheadedness or dizziness. Telemetry reviewed: Normal sinus rhythm without arrhythmia. Review of Systems Review of Systems: All systems reviewed & are unremarkable except as noted in HPI & below Physical Exam Physical Exam: General: Awake, alert and oriented x 3. No acute distress. HEENT: Normocephalic, atraumatic. Pupils equal, round and reactive to light and accommodation. Extraocular muscles are intact. Anicteric sclera. Moist mucous membranes. Neck: No JVD. No bruit. Cardiovascular: Regular. Positive S-4. Normal S-1 and S-2. No S-3. 3/6 mid to late systolic ejection murmur, greatest at the right sternal border, second intercostal space with radiation to the bilateral carotids. No rubs. Pulmonary: Poor air movement throughout with scattered rhonchi, crackles and wheezing. Abdomen: Bowel sounds x 4, soft. No rebound, guarding or tenderness. No organomegaly. Extremities: No clubbing, cyanosis or edema. +2 pedal pulses bilaterally. Skin: Warm and dry. Results & Data ([facility]) Vital Signs (Past 12 Hours) Vital Signs Temp Pulse Pulse Resp BP Pulse Ox 11/12/20 11:00 36.8 C 72 18 111/57 L 100 11/12/20 07:39 69 11/12/20 07:36 36.7 C 73 18 114/61 97 11/12/20 06:27 36.8 C 75 20 120/63 96 11/12/20 03:06 36.4 C L 75 18 131/63 97 (1) Anemia Anemia type: unspecified type Qualified Code(s): D64.9 - Anemia, unspecified
--- NOTE | 2020-11-12 22:08 | Hospitalist Progress Note ---
Date of Service November 12, 2020 Assessment & Plan (1) Diastolic CHF, acute on chronic: (2) Bilateral pleural effusion: (3) Acute respiratory failure with hypoxia: Plan: #. Acute Hypoxic Respiratory Failure #. Bilateral Pleural Effusions secondary to acute on chronic diastolic congestive heart failure exacerbation Per admitting service notes: Progressive dyspnea on exertion, PND and orthopnea for ~1 week. Required 4-5L NC in ED to maintain SpO2 >90%. BNP 09452 and CXR showing interval progression of bilateral pleural effusions (L > R). Multifactorial etiologies --> acute on chronic HFpEF, severe protein calorie malnutrition, pleural effusions. Patient maintaining saturation of 5 L nasal cannula oxygen. Continue with Lasix. Cardiology on board: End-stage heart disease, continue with IV diuresis, possible repeat thoracentesis. Pleural effusion: Left larger than right with bibasilar consolidation Likely consider pulmonary consult after reassessing tomorrow. #. Normocytic Anemia Per admitting service notes: Hgb 7.7 here, baseline ~8-10. No signs of active bleeding. Suspect worsening anemia of chronic disease due to complicated PMHx that includes MM and CKD. - transfuse as necessary for Hgb <7 (patient was transfused during previous hospitalization in 10/2020) #. CKDIII Cr 1.58, approximate baseline. - continue to monitor renal function #. Hypertension - continue home hydrochlorothiazide, Lopressor - held Amlodipine and Lisinopril for now due to marginal blood pressure #. Prolonged QTc QTc 486 ms. - Avoid QTC prolonging meds as able #. Hyperlipidemia - continue statin #. Aortic stenosis S/P TAVR - Continue home meds #. Compression fractures - Pain control PRN - PT, OT when stable Code Status: DNR/DNI Disposition: med/surg with tele, CM consulted for d/c planning. Palliative care on board. Admission and Anticipated Discharge Date Admission Date: November 10, 2020 Subjective Patient was lying semiupright in bed, AOx3, states that she feels better, does not use home oxygen but was currently on 5 L nasal cannula oxygen. Review of symptoms were negative. She appears cachectic. She was eating her meal at time of bedside exam. Physical Exam Constitutional: GENERAL: Alert and oriented x3. NAD, on 5 L nasal cannula oxygen, cachectic looking HEENT: No pallor, no icterus. Pupils equal, round and reactive to light. Oral mucosa moist. Left eyelid has a scar status post cancer resection. NECK: No JVD, no neck masses. HEART: S1 and S2 heard. Regular rate and rhythm. Holosystolic murmur, no gallop. RESPIRATORY SYSTEM: Normal AP diameter. No accessory muscle use. No wheezing, no crackles. ABDOMEN: Soft, bowel sounds present, nontender, no distention. CENTRAL NERVOUS SYSTEM: Alert and oriented x3. No facial droop. Speech is clear. Obeys simple commands. Moves extremities. EXTREMITIES: No edema, no erythema seen. Results & Data Results & [facility] ([facility]) Vital Signs (Past 12 Hours) Vital Signs Temp Pulse Pulse Resp BP Pulse Ox 11/12/20 19:59 36.5 C 73 18 106/67 96 11/12/20 16:00 74 11/12/20 14:51 36.9 C 73 18 95/54 L 96 11/12/20 11:00 36.8 C 72 18 111/57 L 100
[2020-11-13] MEDS: FUROSEMIDE 40 MG in SYRINGE 0 ML IV SCH (06:22)
[2020-11-13 07:59] LABS: Hematocrit (blood only) 22.9 % (37-47); Hemoglobin 7.3 g/dL (12.0-16.0); Mean Corpuscular Hemoglobin 31.5 pg (25-34); Mean Corpuscular Hgb Conc 31.9 g/dL (32-36); Mean Corpuscular Volume 98.7 fL (80-100); Mean Platelet Volume 8.6 fL (7.4-10.4); Platelet Count 102 K/uL (130-400); RDW Standard Deviation 64.1 fL (36.4-46.3); Red Blood Count 2.32 M/uL (4.2-5.4); White Blood Count 6.71 K/uL (4.8-10.8)
[2020-11-13 08:39] LABS: BUN Creatinine Ratio 31.1 (10-20); Calcium 9.8 mg/dl (8.5-10.1); Creatinine Clr Calc Pharmacy 10.9 ml/min; Est GFR (African American) 16.8 ml/min; Est GFR (Non-African American) 14.5 ml/min; Magnesium 1.6 mg/dl (1.8-2.4); Potassium 3.9 mmol/L (3.5-5.1)
[2020-11-13] MEDS: METOPROLOL TARTRATE 50 MG TAB PO SCH ×2 (08:43→19:31)
[2020-11-13] MEDS: OLANZAPINE 2.5 MG TAB PO PRN (08:44)
[2020-11-13] MEDS: ATORVASTATIN 40 MG TAB PO SCH (08:44)
[2020-11-13] MEDS: APIXABAN 2.5 MG TAB PO SCH ×2 (08:44→19:31)
[2020-11-13] MEDS: hydroCHLOROthiazide 25 MG TAB PO SCH (08:45)
[2020-11-13] MEDS: LIDOCAINE 5% 1 PATCH TD SCH (08:49)
[2020-11-13] MEDS: POTASSIUM CHLORIDE CRTAB 20 MEQ TABCR PO SCH (08:51)
[2020-11-13] MEDS: MAGNESIUM SULFATE / D5W 1 GM/100 ML BAG IV SCH ×2 (12:23→14:30)
--- NOTE | 2020-11-13 13:35 | Cardiology Progress Note ---
Date of Service November 13, 2020 Assessment & Plan (1) Diastolic CHF, acute on chronic: (2) Pulmonary hypertension: (3) History of transcatheter aortic valve replacement (TAVR): (4) Decreased appetite: (5) Anemia: (6) Moderate protein-energy malnutrition: (7) Bilateral pleural effusion: (8) Acute respiratory failure with hypoxia: (9) Coronary artery disease: (10) Carotid artery disease: (11) Aortic stenosis: Plan: At this point, I believe this most recent admission represents that she is suffering from end-stage heart disease. Patient declined hospice therapy. We will continue with IV diuresis at this time. We'll repeat mediastinal ultrasound today to reevaluate pleural effusions. Admission and Anticipated Discharge Date Admission Date: November 10, 2020 Subjective Patient seen and examined, chart reviewed. Much more somnolent today. Somewhat confused. States that she is not sure if her breathing has improved. Review of Systems Review of Systems: All systems reviewed & are unremarkable except as noted in HPI & below Physical Exam Physical Exam: General: Awake, alert and oriented x 3. No acute distress. HEENT: Normocephalic, atraumatic. Pupils equal, round and reactive to light and accommodation. Extraocular muscles are intact. Anicteric sclera. Moist mucous membranes. Neck: No JVD. No bruit. Cardiovascular: Regular. Positive S-4. Normal S-1 and S-2. No S-3. 3/6 mid to late systolic ejection murmur, greatest at the right sternal border, second intercostal space with radiation to the bilateral carotids. No rubs. Pulmonary: Poor air movement throughout with scattered rhonchi, crackles and wheezing. Abdomen: Bowel sounds x 4, soft. No rebound, guarding or tenderness. No organomegaly. Extremities: No clubbing, cyanosis or edema. +2 pedal pulses bilaterally. Skin: Warm and dry. Results & Data ([facility]) Vital Signs (Past 12 Hours) Vital Signs Temp Pulse Pulse Resp BP Pulse Ox 11/13/20 11:49 36.7 C 71 18 99/59 L 95 11/13/20 08:02 36.4 C L 68 18 105/56 L 98 11/13/20 07:29 68 11/13/20 04:11 36.7 C 76 18 119/67 93 11/13/20 02:30 69 11/13/20 01:41 75 (1) Anemia Anemia type: unspecified type Qualified Code(s): D64.9 - Anemia, unspecified
--- NOTE | 2020-11-13 14:29 | Ultrasound Report ---
ULTRASOUND OF THE PLEURAL SPACES CLINICAL HISTORY: Pleural effusion. COMPARISON STUDY: Chest x-ray dated 11/11/2020. FINDINGS: Real-time grayscale sonography of the pleural spaces is performed to assess pleural effusio ns. There are small pleural effusions, left larger than right with associated atelectasis. The left p leural effusion has an estimated volume of 240 cc, and the right pleural effusion has an estimated vo lume of 112 cc. These were not marked for bedside thoracentesis. IMPRESSION: Small left larger than right pleural effusions as above. Electronically signed by: Ken Hannon M.D. 11/13/2020 2:28 PM
--- NOTE | 2020-11-13 15:37 | Pulmonary Consultation ---
Date of Consultation November 13, 2020 Assessment & Plan (1) Diastolic CHF, acute on chronic: (2) Pulmonary hypertension: (3) Bilateral pleural effusion: Impression: 80-year-old female with end-stage heart disease admitted with shortness of breath and hypoxemia. Ultrasound today did not demonstrate significantly large enough effusions to be contributing to her symptoms were amenable to thoracentesis. In addition I am not sure the patient has capacity to consent for the procedure and if we were to consider thoracentesis, anticoagulation would have to be withheld. Recommendations: 1. Pleural effusions: Previous studies consistent with transudate of etiology, likely secondary to heart failure. Again they are relatively small on ultrasound and would favor medical management including more aggressive diuretics at this point time if tolerated. Review of her intake and output reveals that she is largely even. Her kidney function is declining which would make diuresis worse. Even if we were to pursue thoracentesis, I suspect the effusions would reaccumulate fairly rapidly as they have done in the past and serial thoracentesis would not be an ideal way to try and manage this patient with end-stage heart disease. 2. Would strongly recommend transitioning to more of a palliative approach. She is met with palliative care previously. Her expressed goals may not be medically achievable and continued discussion with the patient may be appropriate although her mental status is questionable as to whether or not she can make her own decisions. 3. Would continue supplemental oxygen titrated to keep saturations at or above 88%. Unfortunately, I think I have little to offer this patient at this point in time. Feel free to contact us if the patient's chest radiograph should change although again I am not sure how much of a long-term benefit the patient would offer from thoracentesis. History of Present Illness Attending Physician: Ramo Pate MD History of Present Illness Asked by hospitalist to evaluate this patient with bilateral pleural effusions and hypoxemic respiratory failure secondary to end-stage heart failure. History is obtained from review electronic medical records and discussion with the patient although the patient is quite confused and not sure she is able to provide reliable history. This 80-year-old female has several medical issues delineated in the H&P as well as what is felt to be end-stage heart failure. She has had several recent admissions and met with palliative care. She is DNR. She was seen by one of my colleagues last month and underwent a thoracentesis. This appeared to be a transudate of effusion. She returned to the emergency room and was readmitted 2 days ago with shortness of breath. She has been on oxygen at 5 L/min. Imaging is demonstrated persistent bilateral infiltrates consistent with pulmonary edema as well as pleural effusions. Her cumulative intake and output have been essentially even if they are reliably recorded. Thoracic ultrasound was performed today which revealed only 240 cc on the left and just over 100 cc on the right. Pulmonary was consulted for consideration of thoracentesis. The patient's speech is somewhat tangential as is her thought process. I am not sure that she currently has capacity to make decisions. Allergies Allergy/AdvReac Type Severity Reaction Status Date / Time No Known Allergies Allergy Verified 10/20/20 21:48 Home Medications Medication Instructions Recorded Confirmed Type amlodipine 5 mg tablet (Norvasc) 10 mg PO HS 06/21/18 11/10/20 History atorvastatin 80 mg tablet 80 mg PO QAM 06/21/18 11/10/20 History hydrochlorothiazide 25 mg tablet 25 mg PO QAM 06/21/18 11/10/20 History lisinopril 10 mg tablet 10 mg PO QAM 06/21/18 11/10/20 History metoprolol tartrate 50 mg tablet 50 mg PO BID 06/21/18 11/10/20 History (Lopressor) apixaban 2.5 mg tablet (Eliquis) 2.5 mg PO BID 08/25/20 11/10/20 History cetirizine 1 mg/mL oral solution 5 mg PO DAILY 08/25/20 11/10/20 History acyclovir 400 mg tablet 400 mg PO DAILYBB 10/20/20 11/10/20 History lidocaine 5 % topical patch 1 patch TRANSDERMAL QAM #30 ea 10/29/20 11/10/20 Rx potassium chloride 20 mEq 20 meq PO DAILY #30 tab 10/29/20 11/10/20 Rx tablet,extended release Patient History Medical History (Updated 11/11/20 @ 23:21 by RIAZ Wallace) Acute respiratory failure with hypoxia Anemia Basal cell carcinoma left eye lid Bilateral pleural effusion Cancer MULTIPLE MYELOMA Cancer of [place] of right eye Carotid artery stenosis Chronic kidney disease UNKNOWN STAGE. NO DIAYLSIS NEEDED. Decreased appetite Depression Diastolic CHF, acute on chronic Hyperlipidemia Hypertension Moderate protein-energy malnutrition Osteoporosis Palliative care encounter Peripheral neuropathy Pulmonary hypertension Pulmonary hypertension Shortness of breath Weakness Surgical History History of cataract surgery BILATERAL History of heart valve replacement "PIG VALVE" AORTIC VALVE REPLACEMENT. (11/30/2016) ARI ARTEAGA. FOLLOWS WITH DR JENNIFER Al of blepharoplasty Social History Smoking Status: Never smoker Second Hand Exposure: No; Hx Alcohol Use: No Hx Substance Use: No Preferred Language: Syriac Communication Ability: Effective Machine Steak Tenderizer Required: No Beliefs That Will Affect Care: None marital status: Single Current Living Situation: Detention Current Living Situation Comment: [facility]. When not there, lives at the [facility] in [place] with . Feels Safe at Home: No Is there a partner from a previous relationship who is making you feel unsafe now?: No and Hesitant to Answer Assistive Devices: Oxygen - Continuous and Walker Review of Systems Review of Systems: Please refer to hospitalist note. I have no changes Physical Exam Constitutional: + frail appearing and cooperative Respiratory: Auscultation: + diminished lung sounds and + crackles Cardiovascular: Rate/Rhythm: regular rate and regular rhythm Heart Sounds: normal S1 and normal S2 Gastrointestinal (Abdomen): Inspection/Auscultation: abdomen normal to i nspection Percussion/Palpation: abdomen soft Psychiatric: A+Ox3, euthymic affect Insight: + limited insight Judgement: + limited judgement Results & Data Results & Data ([facility]) Vital Signs (Past 12 Hours) Vital Signs Temp Pulse Pulse Resp BP Pulse Ox 11/13/20 14:58 37.0 C 70 16 92/53 L 93 11/13/20 11:49 36.7 C 71 18 99/59 L 95 11/13/20 08:02 36.4 C L 68 18 105/56 L 98 11/13/20 07:29 68 11/13/20 04:11 36.7 C 76 18 119/67 93 Laboratory Results 11/13/20 07:45 11/13/20 07:45 Diagnostic Findings Thoracic ultrasound performed today was independently reviewed with findings as noted above. Chest x-ray demonstrated cardiomegaly with opacification of the left hemithorax. PG Care Time/CCT Total # of Minutes Spent Total Time Spent with Patient: Total time spent is greater than 50% in coordination of care (as documented) at patient's floor/unit and/or counseling patient: Coding Level of Care Code 46707 Initial Inpt Care Lvl 2 Diagnoses Diastolic CHF, acute on chronic I50.33 Pulmonary hypertension I27.20 Bilateral pleural effusion J90
--- NOTE | 2020-11-13 16:05 | Hospitalist Progress Note ---
Date of Service November 13, 2020 Assessment & Plan (1) Diastolic CHF, acute on chronic: (2) Bilateral pleural effusion: (3) Acute respiratory failure with hypoxia: Plan: #. Acute Hypoxic Respiratory Failure #. Bilateral Pleural Effusions secondary to acute on chronic diastolic congestive heart failure exacerbation #. GEOFF over CKD Per admitting service notes: Progressive dyspnea on exertion, PND and orthopnea for ~1 week. Required 4-5L NC in ED to maintain SpO2 >90%. BNP 78303 and CXR showing interval progression of bilateral pleural effusions (L > R). Multifactorial etiologies --> acute on chronic HFpEF, severe protein calorie malnutrition, pleural effusions. Patient maintaining saturation of 5 L nasal cannula oxygen [does not use home oxygen]. Cardiology on board: End-stage heart disease, continue with IV diuresis, possible repeat thoracentesis. Pleural effusion: Likely secondary to heart failure. Left larger than right with bibasilar consolidation Pulmonology on board: Pleural effusion relatively small on ultrasound, favor medical management including aggressive diuresis. Even with thoracentesis, pleural fluid will reaccumulate fairly rapidly as in past. Do not recommend serial thoracentesis. BUN and creatinine elevated to 90 and 2.90 today, creatinine baseline around 1.58. Due to need for continued diuresis which is getting complicated with worsening kidney function, nephrology consulted. Await recommendation. We will hold Lasix for today until nephrology recommends otherwise. Follow-up with blood labs tomorrow. #. Normocytic Anemia Per admitting service notes: Hgb 7.3 today, baseline ~8-10. No signs of active bleeding. Suspect worsening anemia of chronic disease due to complicated PMHx that includes MM and CKD. - transfuse as necessary for Hgb <7 (patient was transfused during previous hospitalization in 10/2020) #. Hypertension - continue home hydrochlorothiazide, Lopressor - held Amlodipine and Lisinopril for now due to marginal blood pressure #. Prolonged QTc QTc 486 ms. - Avoid QTC prolonging meds as able #. Hyperlipidemia - continue statin #. Aortic stenosis S/P TAVR - Continue home meds #. Compression fractures - Pain control PRN - PT, OT when stable Code Status: DNR/DNI Disposition: med/surg with tele, CM consulted for d/c planning. Palliative care on board. To rehab when medically stable. Admission and Anticipated Discharge Date Admission Date: November 10, 2020 Subjective Patient was lying semiupright in bed, AOx3, states that she feels same, on 5 L nasal cannula oxygen. Review of symptoms were negative. She appears cachectic. She states that she has not eaten much today. Dietitian on board. Physical Exam Physical Exam: GENERAL: Alert and oriented x3. NAD, on 5 L nasal cannula oxygen, cachectic looking HEENT: No pallor, no icterus. Pupils equal, round and reactive to light. Oral mucosa moist. Left eyelid has a scar status post cancer resection. NECK: No JVD, no neck masses. HEART: S1 and S2 heard. Regular rate and rhythm. Holosystolic murmur, no gallop. RESPIRATORY SYSTEM: Normal AP diameter. No accessory muscle use. No wheezing, no crackles. ABDOMEN: Soft, bowel sounds present, nontender, no distention. CENTRAL NERVOUS SYSTEM: Alert and oriented x3. No facial droop. Speech is clear. Obeys simple commands. Moves extremities. EXTREMITIES: No edema, no erythema seen. Results & Data Results & Data ([facility]) Vital Signs (Past 12 Hours) Vital Signs Temp Pulse Pulse Resp BP Pulse Ox 11/13/20 14:58 37.0 C 70 16 92/53 L 93 11/13/20 11:49 36.7 C 71 18 99/59 L 95 11/13/20 08:02 36.4 C L 68 18 105/56 L 98 11/13/20 07:29 68 11/13/20 04:11 36.7 C 76 18 119/67 93
[2020-11-13] MEDS: MoRPHine SULFATE 5 MG/0.25 ML UDP PO PRN (19:31)
[2020-11-14] MEDS: OLANZAPINE 2.5 MG TAB PO PRN (01:56)
[2020-11-14 09:01] LABS: Hematocrit (blood only) 21.9 % (37-47); Mean Corpuscular Hemoglobin 31.7 pg (25-34); Mean Corpuscular Volume 99.1 fL (80-100); Mean Platelet Volume 9.4 fL (7.4-10.4); Nucleated RBC # (auto) 0.02 K/uL (0-0); Nucleated RBC % (auto) 0.2 %; Platelet Count 129 K/uL (130-400); RDW Coefficient of Variation 18.1 % (11.5-14.5); RDW Standard Deviation 65.1 fL (36.4-46.3); Red Blood Count 2.21 M/uL (4.2-5.4); White Blood Count 8.41 K/uL (4.8-10.8)
[2020-11-14] MEDS: hydroCHLOROthiazide 25 MG TAB PO SCH (09:46)
[2020-11-14] MEDS: POTASSIUM CHLORIDE CRTAB 20 MEQ TABCR PO SCH (09:46)
[2020-11-14] MEDS: METOPROLOL TARTRATE 50 MG TAB PO SCH ×2 (09:46→22:13)
[2020-11-14] MEDS: ATORVASTATIN 40 MG TAB PO SCH (09:46)
[2020-11-14] MEDS: APIXABAN 2.5 MG TAB PO SCH ×2 (09:46→22:12)
[2020-11-14] MEDS: LIDOCAINE 5% 1 PATCH TD SCH (09:46)
--- NOTE | 2020-11-14 10:25 | Nephrology Consultation ---
Date of Consultation November 14, 2020 History of Present Illness Reason for Consultation: ARF Attending Physician: Ramo Pate MD History of Present Illness error see other one Allergies Allergy/AdvReac Type Severity Reaction Status Date / Time No Known Allergies Allergy Verified 10/20/20 21:48 Home Medications Medication Instructions Recorded Confirmed Type amlodipine 5 mg tablet (Norvasc) 10 mg PO HS 06/21/18 11/10/20 History atorvastatin 80 mg tablet 80 mg PO QAM 06/21/18 11/10/20 History hydrochlorothiazide 25 mg tablet 25 mg PO QAM 06/21/18 11/10/20 History lisinopril 10 mg tablet 10 mg PO QAM 06/21/18 11/10/20 History metoprolol tartrate 50 mg tablet 50 mg PO BID 06/21/18 11/10/20 History (Lopressor) apixaban 2.5 mg tablet (Eliquis) 2.5 mg PO BID 08/25/20 11/10/20 History cetirizine 1 mg/mL oral solution 5 mg PO DAILY 08/25/20 11/10/20 History acyclovir 400 mg tablet 400 mg PO DAILYBB 10/20/20 11/10/20 History lidocaine 5 % topical patch 1 patch TRANSDERMAL QAM #30 ea 10/29/20 11/10/20 Rx potassium chloride 20 mEq 20 meq PO DAILY #30 tab 10/29/20 11/10/20 Rx tablet,extended release Patient History Medical History (Updated 11/11/20 @ 23:21 by RIAZ Wallace) Acute respiratory failure with hypoxia Anemia Basal cell carcinoma left eye lid Bilateral pleural effusion Cancer MULTIPLE MYELOMA Cancer of [place] of right eye Carotid artery stenosis Chronic kidney disease UNKNOWN STAGE. NO DIAYLSIS NEEDED. Decreased appetite Depression Diastolic CHF, acute on chronic Hyperlipidemia Hypertension Moderate protein-energy malnutrition Osteoporosis Palliative care encounter Peripheral neuropathy Pulmonary hypertension Pulmonary hypertension Shortness of breath Weakness Surgical History History of cataract surgery BILATERAL History of heart valve replacement "PIG VALVE" AORTIC VALVE REPLACEMENT. (11/30/2016) RAI ARTEAGA. FOLLOWS WITH DR JENNIFER Al of blepharoplasty Social History Smoking Status: Never smoker Second Hand Exposure: No; Hx Alcohol Use: No Hx Substance Use: No Preferred Language: Polish Communication Ability: Effective Coverstitch Machine Operator Required: No Beliefs That Will Affect Care: None marital status: Single Current Living Situation: Residential Current Living Situation Comment: [facility]. When not there, lives at the [facility] in [place] with HH. Feels Safe at Home: No Is there a partner from a previous relationship who is making you feel unsafe now?: No and Hesitant to Answer Assistive Devices: Oxygen - Continuous and Walker Results & Data ([facility]) Vital Signs (Past 12 Hours) Vital Signs Temp Pulse Pulse Resp BP Pulse Ox 11/14/20 07:33 36.9 C 80 18 103/54 L 96 11/14/20 07:23 74 11/14/20 03:08 37.1 C 74 18 89/38 L 95 11/13/20 23:02 36.6 C 77 18 90/52 L 92
[2020-11-14 10:30] LABS: BUN Creatinine Ratio 19.7 (10-20); Calcium 9.5 mg/dl (8.5-10.1); Creatinine Clr Calc Pharmacy 7.4 ml/min; Est GFR (Non-African American) 8.7 ml/min; Magnesium 2.9 mg/dl (1.8-2.4); Phosphorus 6.8 mg/dl (2.5-4.9); Potassium 4.7 mmol/L (3.5-5.1)
[2020-11-14] MEDS ORDERED: SODIUM CHLORIDE 0.9% 250 ML IV PRN (10:44)
--- NOTE | 2020-11-14 14:13 | Cardiology Progress Note ---
Date of Service November 14, 2020 Assessment & Plan (1) Diastolic CHF, acute on chronic: (2) Pulmonary hypertension: (3) History of transcatheter aortic valve replacement (TAVR): (4) Decreased appetite: (5) Anemia: (6) Moderate protein-energy malnutrition: (7) Bilateral pleural effusion: (8) Acute respiratory failure with hypoxia: (9) Coronary artery disease: (10) Carotid artery disease: (11) Aortic stenosis: Plan: At this point, I believe this most recent admission represents that she is suffering from end-stage heart disease. Patient declined hospice therapy. We will continue with IV diuresis at this time. Pulmonary and Nephrology now on board. Continued IV diuresis recommend. Okay to DC telemetry from a cardiac standpoint. Admission and Anticipated Discharge Date Admission Date: November 10, 2020 Subjective patient seen and examined, chart reviewed. States that she does not seeing improvement from admission and still significantly short of breath. Denies other cardiac complaints of chest pain, palpitations or lightheadedness. Review of Systems Review of Systems: All systems reviewed & are unremarkable except as noted in HPI & below Physical Exam Physical Exam: General: Awake, alert and oriented x 3. No acute distress. HEENT: Normocephalic, atraumatic. Pupils equal, round and reactive to light and accommodation. Extraocular muscles are intact. Anicteric sclera. Moist mucous membranes. Neck: No JVD. No bruit. Cardiovascular: Regular. Positive S-4. Normal S-1 and S-2. No S-3. 3/6 mid to late systolic ejection murmur, greatest at the right sternal border, second intercostal space with radiation to the bilateral carotids. No rubs. Pulmonary: Poor air movement throughout with scattered rhonchi, crackles and wheezing. Abdomen: Bowel sounds x 4, soft. No rebound, guarding or tenderness. No organomegaly. Extremities: No clubbing, cyanosis or edema. +2 pedal pulses bilaterally. Skin: Warm and dry. Results & Data ([facility]) Vital Signs (Past 12 Hours) Vital Signs Temp Pulse Pulse Resp BP BP Pulse Ox 11/14/20 13:25 36.5 C 83 20 95/58 L 96 11/14/20 12:39 36.9 C 92 H 20 95/57 L 94 11/14/20 12:38 36.3 C L 88 18 116/65 93 11/14/20 12:21 37.0 C 82 18 102/64 93 11/14/20 07:33 36.9 C 80 18 103/54 L 96 11/14/20 07:30 11/14/20 07:23 74 11/14/20 07:15 11/14/20 03:08 37.1 C 74 18 89/38 L 95 Pulse Ox 11/14/20 13:25 11/14/20 12:39 11/14/20 12:38 11/14/20 12:21 11/14/20 07:33 11/14/20 07:30 94 11/14/20 07:23 11/14/20 07:15 94 11/14/20 03:08 (1) Anemia Anemia type: unspecified type Qualified Code(s): D64.9 - Anemia, unspecified
--- NOTE | 2020-11-14 14:21 | Consultation Report ---
NEPHROLOGY CONSULTATION DATE OF SERVICE: 11/14/2020 REASON FOR CONSULTATION: Acute renal failure. HISTORY OF PRESENT ILLNESS: The patient is an 80-year-old female with very complicated medical histo ry including multiple myeloma, end-stage cardiac disease as determined by cardiology and multiple oth er medical problems, presented to the hospital 4 days ago with worsening shortness of breath for many days. She was also barely eating and there has been a massive decline in her overall health. She w as recently admitted to the hospital for acute hypoxic respiratory failure with bilateral pleural eff usion and CHF exacerbation. She also underwent left thoracocentesis during that time, which was rela chapito with heart failure and was also transfused 2 units of blood. She has already been evaluated by c ardiology as well as pulmonary and both the specialists feel she is essentially end stage at this fiona e. Palliative medicine has been involved and, as of now, the patient and the family have declined ho spice care. Creatinine was 1.58 on admission, and yesterday, it went to 2.90. Blood work from today still pending. She is getting Lasix 40 IV b.i.d., but there is barely any urine output according to the charting. Total urine output yesterday was recorded as 350 mL. So far today, she has 50 mL. ALLERGIES: None. MEDICATIONS: Home medication list was reviewed in detail as well as inpatient medication list, which is as per medicine reconciliation. PAST MEDICAL AND SURGICAL HISTORY: Multiple myeloma, chronic kidney disease stage III to stage IV, co ngestive heart failure, acute respiratory failure with hypoxia, pulmonary hypertension, history of TA VR, bilateral pleural effusion related with congestive heart failure, aortic stenosis, carotid artery disease. SOCIAL HISTORY: She never smoked. No alcohol. She is single, lives in a prison. She is on o xygen continuously as well as walker. REVIEW OF SYSTEMS: I could not obtain any history from the patient as she did not even open her eyes on command. History has been constructed from the medical record. PHYSICAL EXAMINATION: GENERAL: Elderly white female who is very frail and weak. She did not answer any of my questions. She did not even open eyes. VITAL SIGNS: Blood pressure is 103/54, pulse rate 80, temperature 36.9, 96% on 5 liters nasal cannul a. HEENT: Mucous membrane is moist. NECK: Supple. Jugular venous distention is present. CHEST: Bilateral decreased breath sounds with basal crackles. CARDIOVASCULAR: S1 and S2 regular. Systolic murmur heard. ABDOMEN: Soft, nontender. EXTREMITIES: Show no edema. LABORATORIES: Blood work from this morning is pending. Creatinine yesterday was 2.90, on admission was 1.58, sodium yesterday was 133, potassium 3.9, magnesium was 1.6. It is pending today. Chest x- ray shows pleural effusion bilaterally as well as cardiomegaly with evidence of congestive heart fail ure. ASSESSMENT AND PLAN: An 80-year-old female who has multiple myeloma as well as advanced cardiac dise ase, now has oliguric acute renal failure for which I have been consulted. Acute renal failure: This appears to be related with her end-stage cardiac disease. Despite Lasix, she is not making much urine and in fact her urine output is declining. She has been labeled as end- stage by both cardiology and pulmonary. Given this, it is to be expected that her kidneys will decli ne at the last stages of life. I do not have any further recommendation regarding her kidney status. I expect her kidney function to get worse. No need of IV fluid. Can continue the Lasix, but curren t dose is not enough, and if felt appropriate and safe by cardiology, dose can be increased, but at t his point, the patient needs to be on palliative medicine with hospice care. Job ID: [id number]
[2020-11-14] MEDS: MoRPHine SULFATE 5 MG/0.25 ML UDP PO PRN (14:27)
--- NOTE | 2020-11-14 17:45 | Hospitalist Progress Note ---
Date of Service November 14, 2020 Assessment & Plan (1) Diastolic CHF, acute on chronic: (2) Bilateral pleural effusion: (3) Acute respiratory failure with hypoxia: Plan: #. Acute Hypoxic Respiratory Failure #. Bilateral Pleural Effusions secondary to acute on chronic diastolic congestive heart failure exacerbation #. GEOFF over CKD Per admitting service notes: Progressive dyspnea on exertion, PND and orthopnea for ~1 week. Required 4-5L NC in ED to maintain SpO2 >90%. BNP 39601 and CXR showing interval progression of bilateral pleural effusions (L > R). Multifactorial etiologies --> acute on chronic HFpEF, severe protein calorie malnutrition, pleural effusions. Patient maintaining saturation of 5 L nasal cannula oxygen [does not use home oxygen]. Cardiology on board: End-stage heart disease, continue with IV diuresis. Pleural effusion: Likely secondary to heart failure. Left larger than right with bibasilar consolidation Pulmonology on board: Pleural effusion relatively small on ultrasound, favor medical management including aggressive diuresis. Even with thoracentesis, pleural fluid will reaccumulate fairly rapidly as in past. Do not recommend serial thoracentesis. BUN and creatinine remains elevated, creatinine baseline around 1.58. Due to need for continued diuresis which is getting complicated with worsening kidney function, nephrology consulted. Nephrology on board: expects her kidney to decline at the last stages of her life. Recommends to continue with Lasix. No need for IV fluid. Also concurs with cardiology and pulmonology regarding palliative medicine with hospice care. Will continue with lasix. Follow-up with blood labs tomorrow. #. Normocytic Anemia Per admitting service notes: Hgb 7.0 today, baseline ~8-10. No signs of active bleeding. Suspect worsening anemia of chronic disease due to complicated PMHx that includes MM and CKD. - transfuse as necessary for Hgb <7 (patient was transfused during previous hospitalization in 10/2020). check daily Hb. #. Hypertension - continue home hydrochlorothiazide, Lopressor - held Amlodipine and Lisinopril for now due to marginal blood pressure #. Prolonged QTc QTc 486 ms. - Avoid QTC prolonging meds as able #. Hyperlipidemia - continue statin #. Aortic stenosis S/P TAVR - Continue home meds #. Compression fractures - Pain control PRN - PT, OT when stable Code Status: DNR/DNI Disposition: med/surg with tele, CM consulted for d/c planning. Palliative care on board. To rehab when medically stable. She looks like on the verge of worsening status. Her kidneys are shutting down. Patient was asked if she has any DPOA, she thought for some time and did not take any name. I called Elliott Stanford 11/14 [nephew, is in the system], he stated that he is not the DPOA for her and would not be able to make any decision. He suggested that there is a brother of hers by the name Cosme, whose phone number he does not have, also states that she had some issues with her brother around 5 years ago since then the are not speaking with his other. He suggested that he would be the closest relative for her. Tried to talk with patient regarding hospice care, patient did not seem interested, RN is worried that she is declining everything in general. Expect worsening health status. Admission and Anticipated Discharge Date Admission Date: November 10, 2020 Subjective Patient was lying semiupright in bed, AOx3, states that she feels same, on 5 L nasal cannula oxygen. Review of symptoms were negative. She appears cachectic. She states she ate today. Dietitian on board. Physical Exam Physical Exam: GENERAL: Alert and oriented x3. NAD, on 5 L nasal cannula oxygen, cachectic looking HEENT: No pallor, no icterus. Pupils equal, round and reactive to light. Oral mucosa moist. Left eyelid has a scar status post cancer resection. NECK: No JVD, no neck masses. HEART: S1 and S2 heard. Regular rate and rhythm. Holosystolic murmur, no gallop. RESPIRATORY SYSTEM: Normal AP diameter. No accessory muscle use. No wheezing, no crackles. ABDOMEN: Soft, bowel sounds present, nontender, no distention. CENTRAL NERVOUS SYSTEM: Alert and oriented x3. No facial droop. Speech is clear. Obeys simple commands. Moves extremities. EXTREMITIES: No edema, no erythema seen. Results & Data Results & Data ([facility]) Vital Signs (Past 12 Hours) Vital Signs Temp Pulse Pulse Resp BP BP Pulse Ox 11/14/20 15:02 85 11/14/20 13:25 36.5 C 92 H 22 103/57 L 91 11/14/20 12:39 36.9 C 92 H 20 95/57 L 94 11/14/20 12:38 36.3 C L 88 18 116/65 93 11/14/20 12:21 37.0 C 82 18 102/64 93 11/14/20 07:33 36.9 C 80 18 103/54 L 96 11/14/20 07:30 11/14/20 07:23 74 11/14/20 07:15 Pulse Ox 11/14/20 15:02 11/14/20 13:25 11/14/20 12:39 11/14/20 12:38 11/14/20 12:21 11/14/20 07:33 11/14/20 07:30 94 11/14/20 07:23 11/14/20 07:15 94
[2020-11-14] MEDS: FUROSEMIDE 40 MG in SYRINGE 0 ML IV SCH (22:11)
[2020-11-15 06:10] LABS: Hematocrit (blood only) 26.4 % (37-47); Hemoglobin 8.7 g/dL (12.0-16.0); Mean Corpuscular Volume 97.1 fL (80-100); Mean Platelet Volume 9.5 fL (7.4-10.4); Platelet Count 126 K/uL (130-400); RDW Coefficient of Variation 18.6 % (11.5-14.5); RDW Standard Deviation 64.9 fL (36.4-46.3); Red Blood Count 2.72 M/uL (4.2-5.4); White Blood Count 8.19 K/uL (4.8-10.8)
[2020-11-15 06:42] LABS: BUN Creatinine Ratio 20.3 (10-20); Calcium 9.6 mg/dl (8.5-10.1); Creatinine Clr Calc Pharmacy 6.4 ml/min; Est GFR (African American) 8.4 ml/min; Est GFR (Non-African American) 7.3 ml/min; Magnesium 3.1 mg/dl (1.8-2.4)
[2020-11-15 07:01] LABS: Potassium 5.5 mmol/L (3.5-5.1)
[2020-11-15] MEDS: MoRPHine SULFATE 5 MG/0.25 ML UDP PO PRN ×2 (09:20→18:49)
[2020-11-15] MEDS: LIDOCAINE 5% 1 PATCH TD SCH (09:22)
[2020-11-15] MEDS: FUROSEMIDE 40 MG in SYRINGE 0 ML IV SCH ×2 (09:22→17:06)
[2020-11-15] MEDS: POTASSIUM CHLORIDE CRTAB 20 MEQ TABCR PO SCH (09:23)
[2020-11-15] MEDS: METOPROLOL TARTRATE 50 MG TAB PO SCH ×2 (09:23→22:36)
--- NOTE | 2020-11-15 10:09 | XRay Report ---
XR chest 1V portable HISTORY: Fever. r/o infection COMPARISON: Chest 11/11/2020. FINDINGS: Increase in size in the moderate left pleural effusion and left perihilar airspace opacity. There are patchy airspace opacities within the right lung and diffuse interstitial thickening. This is similar to the prior study. The heart is enlarged. Rotated study. No definite pneumothorax. The pa tient's head overlies the left lung apex. IMPRESSION: 1. Increase in size in the moderate to large left pleural effusion. 2. Bilateral airspace opacities and interstitial thickening/edema persists. ACT 112: Negative or not required by law. Electronically signed by: Aureliano Davis M.D. 11/15/2020 10:07 AM
--- NOTE | 2020-11-15 10:44 | Nephrology Progress Note ---
Date of Service November 15, 2020 Assessment & Plan (1) Volume overload: Plan: from her endstage HF and now severe pulmonary HTN I do not believe that dialysis alone would reverse this process; there is also +/- w/ role for over a year now untreated multiple myeloma (pt withdrew from chemo and hematology f/u summer 2019). now as her HF worsens, respiratory failure and renal failure are not unsurprisingly worsening as well. not a candidate for further thoracenteses. Cardiology recommends no further cardiac evaluations but continued diuretic therapy as tolerated. Hospice strongly recommended by cardiology, pulmonary services; pt has so far declined this. -her volume overload will only progress at this point. we can continue lasix but I believe that we are unfortunately reaching a tipping point where the multifactorial fluid overload will cause her demise. prx grim. Dr. Pate well aware; I did coordinate care w/ him. (2) Acute kidney injury superimposed on chronic kidney disease: Plan: rapidly worsening now anuric acute on chronic kidney injury w/ uremia; baseline renal function is stage 4 (not stage 3). she is not a dialysis candidate given her end stage cardiac disease and severe pulmonary HTN > I believe that her disease processes would not be stabilized with dialysis and would consider dialysis futile care. -continue conservative measures; not appropriate to escalate therapy at this time -medical mgt of potassium best we can while we can (3) Hyperkalemia: Plan: K up to 5.5 today > anuric on lasix -cont lasix -started low K diet and patiromer >> these are temporizing measures Admission and Anticipated Discharge Date Admission Date: November 10, 2020 Subjective seen on rounds; pt in position, moaning on oxymask; shakes head no when asked if in pain or if sob worse. does not open eyes or interact. ROS past this or further conversation not possible d/t MS/pt engagement Review of Systems Review of Systems: Unobtainable due to reduced consciousness Physical Exam Constitutional: well developed, + thin, + altered mental status and + frail appearing curled in position; does not open eyes/interact beyond shaking head for a few ? Y/N Eyes: EOM intact bilaterally ENMT: Ears: no external ear abnormality Nose: no external nose abnormality Mouth: + dry oral mucous membranes Neck: no nuchal rigidity Respiratory: + labored breathing (slight); no cough and + not able to speak in complete sentence Auscultation: + diminished lung sounds Cardiovascular: Rate/Rhythm: regular rate and regular rhythm Heart Sounds: + murmur Extremities: no edema Gastrointestinal (Abdomen): Inspection/Auscultation: normal bowel sounds Percussion/Palpation: abdomen soft; abdomen nontender Musculoskeletal: Extremities: strength 5/5 throughout Skin: no rashes, warm and dry Neurologic: no tremor, withdraws to pain Results & [facility]) Vital Signs (Past 12 Hours) Vital Signs Temp Pulse Pulse Resp BP BP Pulse Ox 11/15/20 10:13 89 11/15/20 06:57 36.6 C 90 24 110/63 93 11/15/20 03:15 36.9 C 86 24 113/66 90 11/14/20 23:28 89 11/14/20 23:26 37.1 C 87 24 100/58 L 90 Laboratory Results 11/15/20 05:17 11/15/20 05:17 Diagnostic Findings TTE 10/2020 reviewed >> plm HTN markedly worse and now severe; grade 1 diastolic dysfunction; cannot directly assess TAVR but appears to have same peak velocity as 2017; moderate-severe TR; moderate MR
--- NOTE | 2020-11-15 11:38 | CT Scan Report ---
CT head/brain wo con CLINICAL HISTORY: 80 years-old Female with delirium. Acutely altered mental status TECHNIQUE: Multiple axial CT images of the head were obtained without contrast. A dose lowering tech nique was utilized adhering to the principles of ALARA. CT DOSE: 614.27 mGy.cm COMPARISON: None. FINDINGS: No acute intracranial hemorrhage, midline shift, intracranial mass, hydrocephalus, territorial ischem ia or abnormal extra-axial collection. Age-related involutional changes with white matter hypodensiti es suggestive of chronic microvascular ischemic disease. Mildly motion degraded exam. Senescent basal ganglia calcifications. Calcifications of the falx cerebri. The calvarium is intact. Mastoid air cells are clear. Mild mucosal thickening of the paranasal sinus es. Unremarkable soft tissues. Prior bilateral lens repair. IMPRESSION: No acute intracranial abnormality. ACT 112: Negative or not required by law. The above report was generated using voice recognition software. It may contain grammatical, syntax o r spelling errors. Electronically signed by: Fernando Cuellar M.D. 11/15/2020 11:36 AM
--- NOTE | 2020-11-15 12:13 | Electrocardiogram Report ---
Test Reason : Blood Pressure : / mmHG Vent. Rate : 086 BPM Atrial Rate : 086 BPM P-R Int : 164 ms QRS Dur : 124 ms QT Int : 380 ms P-R-T Axes : 056 -20 118 degrees QTc Int : 454 ms Normal sinus rhythm Left bundle branch block Abnormal ECG When compared with ECG of 10-NOV-2020 18:11, No significant change was found Confirmed by Gadiel Mares ([id number]) on 11/15/2020 12:13:28 PM Referred By: [facility] Confirmed By:Gadiel Mares
[2020-11-15] MEDS: APIXABAN 2.5 MG TAB PO SCH ×2 (12:26→22:36)
[2020-11-15] MEDS: ATORVASTATIN 40 MG TAB PO SCH (12:27)
[2020-11-15] MEDS: PATIROMER CALCIUM SORBITEX 8.4 GM PACK PO SCH (12:28)
[2020-11-15] MEDS: hydroCHLOROthiazide 25 MG TAB PO SCH (12:28)
--- NOTE | 2020-11-15 13:23 | Cardiology Progress Note ---
Date of Service November 15, 2020 Assessment & Plan (1) Diastolic CHF, acute on chronic: (2) Pulmonary hypertension: (3) History of transcatheter aortic valve replacement (TAVR): (4) Decreased appetite: (5) Anemia: (6) Moderate protein-energy malnutrition: (7) Bilateral pleural effusion: (8) Acute respiratory failure with hypoxia: (9) Coronary artery disease: (10) Carotid artery disease: (11) Aortic stenosis: Plan: At this point, I believe this most recent admission represents that she is suffering from end-stage heart disease. Patient declined hospice therapy. We will continue with IV diuresis at this time. Pulmonary and Nephrology now on board. Continued IV diuresis recommend. Okay to DC telemetry from a cardiac standpoint. Given her lack of improvement with ongoing diuresis I believe hospice care is the most appropriate approach at this time. Admission and Anticipated Discharge Date Admission Date: November 10, 2020 Subjective Patient seen and examined, chart reviewed. Patient much more lethargic today. Currently laying in the position with oxygen mask on. Responding to yes or no questions only. Denies any improvement in her breathing. Also denies chest pain, palpitations, lightheadedness, dizziness or syncope. Telemetry reviewed: Normal sinus rhythm with underlying left bundle branch block Review of Systems Review of Systems: Unobtainable due to reduced consciousness Physical Exam Physical Exam: General: Awake, alert and oriented x 3. No acute distress. HEENT: Normocephalic, atraumatic. Pupils equal, round and reactive to light and accommodation. Extraocular muscles are intact. Anicteric sclera. Moist mucous membranes. Neck: No JVD. No bruit. Cardiovascular: Regular. Positive S-4. Normal S-1 and S-2. No S-3. 3/6 mid to late systolic ejection murmur, greatest at the right sternal border, second intercostal space with radiation to the bilateral carotids. No rubs. Pulmonary: Poor air movement throughout with scattered rhonchi, crackles and wheezing. Abdomen: Bowel sounds x 4, soft. No rebound, guarding or tenderness. No organomegaly. Extremities: No clubbing, cyanosis or edema. +2 pedal pulses bilaterally. Skin: Warm and dry. Results & Data ([facility]) Vital Signs (Past 12 Hours) Vital Signs Temp Pulse Pulse Resp BP BP Pulse Ox 11/15/20 11:24 36.8 C 62 20 106/64 96 11/15/20 10:13 89 11/15/20 06:57 36.6 C 90 24 110/63 93 11/15/20 03:15 36.9 C 86 24 113/66 90 (1) Anemia Anemia type: unspecified type Qualified Code(s): D64.9 - Anemia, unspecified
[2020-11-15] MEDS ORDERED: PIPERACILL/TAZOBAC CONSULT ACTIVE PRN (14:55)
--- NOTE | 2020-11-15 14:55 | Hospitalist Progress Note ---
Date of Service November 15, 2020 Assessment & Plan (1) Diastolic CHF, acute on chronic: (2) Bilateral pleural effusion: (3) Acute respiratory failure with hypoxia: Plan: #. Acute Hypoxic Respiratory Failure #. Bilateral Pleural Effusions secondary to acute on chronic diastolic congestive heart failure exacerbation #. GEOFF over CKD #. Acute metabolic encephalopathy: Multifactorial/uremia #. Possible pneumonia Per admitting service notes: Progressive dyspnea on exertion, PND and orthopnea for ~1 week. Required 4-5L NC in ED to maintain SpO2 >90%. BNP 95556 and CXR showing interval progression of bilateral pleural effusions (L > R). Multifactorial etiologies --> acute on chronic HFpEF, severe protein calorie malnutrition, pleural effusions. Patient requiring nonrebreather oxygenhigh flow [does not use home oxygen]. Cardiology on board: End-stage heart disease, continue with IV diuresis. Pleural effusion: Likely secondary to heart failure. Left larger than right with bibasilar consolidation. Worsening pleural effusion 11/15. Pulmonology on board: Pleural effusion relatively small on ultrasound, favor medical management including aggressive diuresis. Even with thoracentesis, pleu ral fluid will reaccumulate fairly rapidly as in past. Do not recommend serial thoracentesis. BUN and creatinine remains elevated, creatinine baseline around 1.58. Due to need for continued diuresis which is getting complicated with worsening kidney function, nephrology was consulted. Nephrology on board: expects her kidney to decline at the last stages of her life. Recommends to continue with Lasix. No need for IV fluid. Also concurs with cardiology and pulmonology regarding palliative medicine with hospice care. Not a candidate for dialysis given her end-stage cardiac disease and severe pulmonary hypertension. Will continue with lasix. Dealt with nephrology. We will put IV morphine as needed. Follow-up with blood labs tomorrow. Repeat CXR oncern for worsening pleural effusion and possible infectious process, likely pneumonia. Pro-Ezio elevated. We will put her on Zosyn and doxycycline. Continue to monitor. #. Normocytic Anemia Per admitting service notes: Hgb greater than 8, baseline ~8-10. No signs of active bleeding. Suspect worsening anemia of chronic disease due to complicated PMHx that includes MM and CKD. - transfuse as necessary for Hgb <7 (patient was transfused during previous hospitalization in 10/2020). check daily Hb. Status post 1 unit transfusion 11/14 #. Hypertension - continue home hydrochlorothiazide, Lopressor - held Amlodipine and Lisinopril for now due to marginal blood pressure Reevaluate for DCing antihypertensive based on her status daily. #. Prolonged QTc QTc 486 ms. - Avoid QTC prolonging meds as able #. Hyperlipidemia - continue statin #. Aortic stenosis S/P TAVR - Continue home meds #. Compression fractures - Pain control PRN - PT, OT when stable Code Status: DNR/DNI Disposition: med/surg with tele, CM consulted for d/c planning. Palliative care on board. To rehab when medically stable. She looks like on the verge of worsening status. Her kidneys are shutting down. Patient was asked multiple times if she has any DPOA, she does not answer that question. I called Elliott Stanford 11/14 [nephew, is in the system], he stated that he is not the DPOA for her and would not be able to make any decision. He suggested that there is a brother of hers by the name Cosme and a [place], whose phone number he does not have, also states that she had some issues with her brother around 5 years ago since then the are not speaking with his other. He suggested that he would be the closest relative for her. I asked the patient if she knows the number to her brother Cosme, she said she does not have the number. Tried to talk with patient regarding hospice care multiple times, patient did not seem interested, RN is worried that she is declining everything in general. Expect worsening health status. Admission and Anticipated Discharge Date Admission Date: November 10, 2020 Subjective Looks like she is continuously worsening slowly day by day. Her kidneys are shutting down. Patient was AO x1 [to place] at bedside exam. She would seem appropriate to some questions but did not answer to most of the questions and would only say "" I hear you "" only. Looks like she was not in a state to decide for herself. Will try to rule out infections for increasing delirium but believe that its secondary to BUN elevation from worsening kidney function. RN is worried that she is declining everything in general. Expect worsening health status. Physical Exam Physical Exam: GENERAL: Alert and oriented x 1. Moderate distress, on nonrebreather, cachectic looking HEENT: No pallor, no icterus. Pupils equal, round and reactive to light. Oral mucosa moist. Left eyelid has a scar status post cancer resection. NECK: No JVD, no neck masses. HEART: S1 and S2 heard. Regular rate and rhythm. Holosystolic murmur, no gallop. RESPIRATORY SYSTEM: Normal AP diameter. Present accessory muscle use. No wheezing, no crackles. Bibasal decreased breath sounds. ABDOMEN: Soft, bowel sounds present, nontender, no distention. CENTRAL NERVOUS SYSTEM: No facial droop. Speech is clear. Obeys simple commands. Moves extremities. EXTREMITIES: No edema, no erythema seen. Results & Data Results & Data ([facility]) Vital Signs (Past 12 Hours) Vital Signs Temp Pulse Pulse Resp BP BP Pulse Ox 11/15/20 11:24 36.8 C 62 20 106/64 96 11/15/20 10:13 89 11/15/20 07:00 11/15/20 06:57 36.6 C 90 24 110/63 93 11/15/20 03:15 36.9 C 86 24 113/66 90 Pulse Ox 11/15/20 11:24 11/15/20 10:13 11/15/20 07:00 93 11/15/20 06:57 11/15/20 03:15
[2020-11-15] MEDS ORDERED: PIPERACILLIN/TAZOBACTAM 2.25 GM in DEXTROSE 5% 100 ML IV SCH (15:00)
[2020-11-15 15:09] LABS: Appearance Urine Clear (Clear); Bacteria Urine Automated Negative (Negative); Bilirubin Urine Negative (Negative); Blood Urine Negative (Negative); Color Urine Dark Yellow; Epithelial Cell Urine Auto 0-5 /lpf (0-5); Glucose Urine UA Negative (Negative); Ketones Urine Negative (Negative); Leukocyte Esterase Urine Negative (Negative); Nitrite Urine Negative (Negative); Protein Urine Trace (Negative); Specific Gravity Urine 1.013 (1.000-1.030); Urobilinogen Urine Negative (Negative)
[2020-11-15] MEDS ORDERED: PIPERACILLIN/TAZOBACTAM 3.375 GM in DEXTROSE 5% 100 ML IV ONE (15:30)
[2020-11-15] MEDS: DOXYCYCLINE HYCLATE 100 MG in DEXTROSE 5% 100 ML IV SCH (17:48)
[2020-11-15] MEDS: PIPERACILLIN/TAZOBACTAM 3.375 GM in DEXTROSE 5% 100 ML IV SCH (23:35)
[2020-11-16] MEDS: DOXYCYCLINE HYCLATE 100 MG in DEXTROSE 5% 100 ML IV SCH ×2 (04:39→16:38)
[2020-11-16] MEDS: MoRPHine SULFATE 5 MG/0.25 ML UDP PO PRN ×3 (04:40→19:34)
[2020-11-16 05:34] LABS: Hematocrit (blood only) 25.9 % (37-47); Hemoglobin 8.5 g/dL (12.0-16.0); Mean Corpuscular Hemoglobin 31.8 pg (25-34); Mean Corpuscular Hgb Conc 32.8 g/dL (32-36); Mean Platelet Volume 9.2 fL (7.4-10.4); Platelet Count 124 K/uL (130-400); RDW Coefficient of Variation 18.2 % (11.5-14.5); RDW Standard Deviation 63.1 fL (36.4-46.3); Red Blood Count 2.67 M/uL (4.2-5.4); White Blood Count 13.33 K/uL (4.8-10.8)
[2020-11-16] MEDS: MoRPHine SULFATE 2 MG/ML CARP IV PRN ×2 (06:11→17:06)
[2020-11-16 06:24] LABS: BUN Creatinine Ratio 19.4 (10-20); Calcium 10.5 mg/dl (8.5-10.1); Creatinine Clr Calc Pharmacy 5.4 ml/min; Est GFR (African American) 6.9 ml/min; Magnesium 2.9 mg/dl (1.8-2.4); Potassium 5.4 mmol/L (3.5-5.1)
[2020-11-16 06:41] LABS: Phosphorus 8.1 mg/dl (2.5-4.9)
[2020-11-16] MEDS: ATORVASTATIN 40 MG TAB PO SCH (09:19)
[2020-11-16] MEDS: APIXABAN 2.5 MG TAB PO SCH ×2 (09:19→20:17)
[2020-11-16] MEDS: FUROSEMIDE 40 MG in SYRINGE 0 ML IV SCH ×2 (09:20→16:37)
[2020-11-16] MEDS: METOPROLOL TARTRATE 50 MG TAB PO SCH ×2 (09:26→20:17)
[2020-11-16] MEDS: PATIROMER CALCIUM SORBITEX 8.4 GM PACK PO SCH (09:26)
[2020-11-16] MEDS: POTASSIUM CHLORIDE CRTAB 20 MEQ TABCR PO SCH (09:27)
[2020-11-16] MEDS: LIDOCAINE 5% 1 PATCH TD SCH (09:27)
[2020-11-16] MEDS ORDERED: MIDODRINE HCL 2.5 MG TAB PO ONE (11:09)
[2020-11-16] MEDS: PIPERACILLIN/TAZOBACTAM 3.375 GM in DEXTROSE 5% 100 ML IV SCH (12:36)
--- NOTE | 2020-11-16 13:53 | Cardiology Progress Note ---
Date of Service November 16, 2020 Assessment & Plan (1) Diastolic CHF, acute on chronic: (2) Pulmonary hypertension: (3) History of transcatheter aortic valve replacement (TAVR): (4) Decreased appetite: (5) Anemia: (6) Moderate protein-energy malnutrition: (7) Bilateral pleural effusion: (8) Acute respiratory failure with hypoxia: (9) Coronary artery disease: (10) Carotid artery disease: (11) Aortic stenosis: Plan: At this point, I believe this most recent admission represents that she is suffering from end-stage heart disease. Patient declined hospice therapy. We will continue with IV diuresis at this time. Pulmonary and Nephrology now on board. At this point recommend holding further diuresis given her hypotension and lack of clinical response. Okay to DC telemetry from a cardiac standpoint. Given her lack of improvement with ongoing diuresis I believe hospice care is the most appropriate approach at this time. Ethics board to be convened which I agree with. Admission and Anticipated Discharge Date Admission Date: November 10, 2020 Subjective Patient seen and examined, chart reviewed. Patient more lethargic and less responsive than yesterday. Nursing reports increased O2 requirement along with hypotension. Patient not responding to questioning. Review of Systems Review of Systems: Unobtainable due to reduced consciousness Physical Exam Physical Exam: General: Awake, alert and oriented x 3. No acute distress. HEENT: Normocephalic, atraumatic. Pupils equal, round and reactive to light and accommodation. Extraocular muscles are intact. Anicteric sclera. Moist mucous membranes. Neck: No JVD. No bruit. Cardiovascular: Regular. Positive S-4. Normal S-1 and S-2. No S-3. 3/6 mid to late systolic ejection murmur, greatest at the right sternal border, second intercostal space with radiation to the bilateral carotids. No rubs. Pulmonary: Poor air movement throughout with scattered rhonchi, crackles and wheezing. Abdomen: Bowel sounds x 4, soft. No rebound, guarding or tenderness. No organomegaly. Extremities: No clubbing, cyanosis or edema. +2 pedal pulses bilaterally. Skin: Warm and dry. Results & Data ([facility]) Vital Signs (Past 12 Hours) Vital Signs Temp Pulse Pulse Resp BP Pulse Ox Pulse Ox 11/16/20 13:36 86/43 L 11/16/20 11:25 36.9 C 83 20 66/45 L 98 11/16/20 09:54 87 11/16/20 09:33 36.7 C 80 20 87/44 L 91 11/16/20 07:32 37.1 C 84 16 89/43 L 95 11/16/20 07:00 91 11/16/20 04:41 36.8 C 46 L 16 91/56 L 94 (1) Anemia Anemia type: unspecified type Qualified Code(s): D64.9 - Anemia, unspecified
[2020-11-16] MEDS ORDERED: MIDODRINE HCL 2.5 MG TAB PO PRN (14:56)
--- NOTE | 2020-11-16 14:56 | Hospitalist Progress Note ---
Date of Service November 16, 2020 Assessment & Plan (1) Diastolic CHF, acute on chronic: (2) Bilateral pleural effusion: (3) Acute respiratory failure with hypoxia: Plan: #. Acute Hypoxic Respiratory Failure #. Bilateral Pleural Effusions secondary to acute on chronic diastolic congestive heart failure exacerbation #. GEOFF over CKD #. Acute metabolic encephalopathy: Multifactorial/uremia #. Possible pneumonia Per admitting service notes: Progressive dyspnea on exertion, PND and orthopnea for ~1 week. Required 4-5L NC in ED to maintain SpO2 >90%. BNP 54308 and CXR showing interval progression of bilateral pleural effusions (L > R). Multifactorial etiologies --> acute on chronic HFpEF, severe protein calorie malnutrition, pleural effusions. Patient requiring nonrebreather oxygenhigh flow [does not use home oxygen]. Cardiology on board: End-stage heart disease, continue with IV diuresis. Pleural effusion: Likely secondary to heart failure. Left larger than right with bibasilar consolidation. Worsening pleural effusion 11/15. Pulmonology on board: Pleural effusion relatively small on ultrasound, favor medical management including aggressive diuresis. Even with thoracentesis, pleu ral fluid will reaccumulate fairly rapidly as in past. Do not recommend serial thoracentesis. BUN and creatinine remains elevated, creatinine baseline around 1.58. Due to need for continued diuresis which is getting complicated with worsening kidney function, nephrology was consulted. Nephrology on board: expects her kidney to decline at the last stages of her life. Recommends to continue with Lasix. No need for IV fluid. Also concurs with cardiology and pulmonology regarding palliative medicine with hospice care. Not a candidate for dialysis given her end-stage cardiac disease and severe pulmonary hypertension. Will continue with lasix. Discussed with nephrology. We will put IV morphine as needed. Follow-up with blood labs tomorrow. Repeat CXR oncern for worsening pleural effusion and possible infectious process, likely pneumonia. Pro-Ezio elevated. ATB started 11/15. Currently on cefepime and doxy. Continue to monitor. #. Normocytic Anemia Per admitting service notes: Hgb greater than 8, baseline ~8-10. No signs of active bleeding. Suspect worsening anemia of chronic disease due to complicated PMHx that includes MM and CKD. - transfuse as necessary for Hgb <7 (patient was transfused during previous hospitalization in 10/2020). check daily Hb. Status post 1 unit transfusion 11/14 #. Hypertension moving towards hypotension Hold antihypertensive, continue with Lasix when able We will put her on midodrine for hypotension Not sure whether she will be an ICU candidate for pressor support #. Prolonged QTc QTc 486 ms. - Avoid QTC prolonging meds as able #. Hyperlipidemia - continue statin #. Aortic stenosis S/P TAVR - Continue home meds #. Compression fractures - Pain control PRN - PT, OT when stable Code Status: DNR/DNI Disposition: med/surg with tele, CM consulted for d/c planning. Palliative care on board. To rehab when medically stable. She looks like on the verge of worsening status. Her kidneys are shutting down. Patient was asked multiple times if she has any DPOA, she does not answer that question. I called Elliott Stanford 11/14 [nephew, is in the system], he stated that he is not the DPOA for her and would not be able to make any decision. He suggested that there is a brother of hers by the name Cosme and a [place], whose phone number he does not have, also states that she had some issues with her brother around 5 years ago since then the are not speaking with his other. He suggested that he would be the closest relative for her. I asked the patient if she knows the number to her brother Cosme, she said she does not have the number. 11/15 Tried to talk with patient regarding hospice care multiple times, patient did not seem interested, RN is worried that she is declining everything in general. Expect worsening health status. per RN, her neighbor Kiana called but patient was not able to make meaningful conversation. Kiana stated that she does not have any relatives to get in touch with. 11/16 patient is more delirious and not answering appropriately. Talked with member of ethics committee Juan Ramon Vela for evaluation and recommendation at around 11 AM 11/16. Admission and Anticipated Discharge Date Admission Date: November 10, 2020 Subjective Patient seen and examined at the bedside. She appeared to be in moderate distress, on face mask [11 L oxygen], upon questioning she states no pain or nothing is bothering her. But clearly she looks in distress. She is also not able to respond appropriately to other questions. She looks more confused than yesterday. She seems worsened to me. Prognosis grim. Per RN, she has not eaten or has not had any bowel movement. Also she has no urine output overnight. Her blood pressure is dropping. Her neighbor Kiana called 11/15 and inquired about her, RN did not give much information about her but pur Tamie on line with Kiana when Tamie was just moaning and not making meaningful conversation. Also Kiana said that she does not have any relatives to get in touch with. Per Kiana, she was also eating less at long term. Member of ethics committee was consulted today at around 11 AM for the complex situation surrounding patient's health and her comfort level, they will evaluate her and make recommendation. Physical Exam Physical Exam: GENERAL: Alert and oriented x 0. Moderate distress, on nonrebreather, cachectic looking HEENT: No pallor, no icterus. Pupils equal, round and reactive to light. Oral mucosa moist. Left eyelid has a scar status post cancer resection. NECK: No JVD, no neck masses. HEART: S1 and S2 heard. Regular rate and rhythm. Holosystolic murmur, no gallop. RESPIRATORY SYSTEM: Normal AP diameter. + accessory muscle use. No wheezing, no crackles. Crackles of the right lung, decreased to no breath sounds over left lung. ABDOMEN: Soft, bowel sounds present, nontender, no distention. CENTRAL NERVOUS SYSTEM: No facial droop. Speech is clear but minimally responds. Moves extremities. EXTREMITIES: No edema, no erythema seen. Results & Data Results & Data ([facility]) Vital Signs (Past 12 Hours) Vital Signs Temp Pulse Pulse Resp BP Pulse Ox Pulse Ox 11/16/20 13:36 86/43 L 11/16/20 11:25 36.9 C 83 20 66/45 L 98 11/16/20 09:54 87 11/16/20 09:33 36.7 C 80 20 87/44 L 91 11/16/20 07:32 37.1 C 84 16 89/43 L 95 11/16/20 07:00 91 11/16/20 04:41 36.8 C 46 L 16 91/56 L 94
[2020-11-17] MEDS ORDERED: CEFEPIME 2,000 MG in SYRINGE 0 ML IV SCH
[2020-11-17] MEDS: DOXYCYCLINE HYCLATE 100 MG in DEXTROSE 5% 100 ML IV SCH (04:02)
[2020-11-17] MEDS: MoRPHine SULFATE 5 MG/0.25 ML UDP PO PRN (04:03)
[2020-11-17] MEDS: MoRPHine SULFATE 2 MG/ML CARP IV PRN (06:19)
[2020-11-17] MEDS ORDERED: SODIUM CHLORIDE 0.9% 1000ML 500 ML IV ONE (07:43)
[2020-11-17] MEDS: APIXABAN 2.5 MG TAB PO SCH (07:58)
[2020-11-17] MEDS: ATORVASTATIN 40 MG TAB PO SCH (07:58)
[2020-11-17] MEDS: METOPROLOL TARTRATE 50 MG TAB PO SCH (07:59)
[2020-11-17] MEDS: LIDOCAINE 5% 1 PATCH TD SCH (07:59)
[2020-11-17] MEDS: POTASSIUM CHLORIDE CRTAB 20 MEQ TABCR PO SCH (07:59)
[2020-11-17] MEDS: PATIROMER CALCIUM SORBITEX 8.4 GM PACK PO SCH (07:59)
[2020-11-17] MEDS: FUROSEMIDE 40 MG in SYRINGE 0 ML IV SCH (08:00)
[2020-11-17 08:03] LABS: Hematocrit (blood only) 26.6 % (37-47); Hemoglobin 8.6 g/dL (12.0-16.0); Mean Corpuscular Hemoglobin 31.5 pg (25-34); Mean Corpuscular Hgb Conc 32.3 g/dL (32-36); Mean Corpuscular Volume 97.4 fL (80-100); Mean Platelet Volume 9.9 fL (7.4-10.4); Nucleated RBC # (auto) 0.02 K/uL (0-0); Nucleated RBC % (auto) 0.1 %; Platelet Count 118 K/uL (130-400); RDW Coefficient of Variation 18.2 % (11.5-14.5); RDW Standard Deviation 63.5 fL (36.4-46.3); Red Blood Count 2.73 M/uL (4.2-5.4); White Blood Count 11.57 K/uL (4.8-10.8)
[2020-11-17 09:02] LABS: BUN Creatinine Ratio 17.3 (10-20); Creatinine Clr Calc Pharmacy 4.2 ml/min; Est GFR (African American) 5.1 ml/min; Est GFR (Non-African American) 4.4 ml/min; Magnesium 2.7 mg/dl (1.8-2.4); Potassium 6.1 mmol/L (3.5-5.1)
[2020-11-17 09:18] LABS: Phosphorus 9.5 mg/dl (2.5-4.9)
[2020-11-17] MEDS ORDERED: MoRPHine SULFATE 2 MG/ML CARP IV PRN (10:39)
[2020-11-17] MEDS ORDERED: MoRPHine SULFATE 2 MG/ML CARP IV STA (10:44)
--- NOTE | 2020-11-17 10:54 | Hospitalist Progress Note ---
Date of Service November 17, 2020 Assessment & Plan (1) Diastolic CHF, acute on chronic: (2) Bilateral pleural effusion: (3) Acute respiratory failure with hypoxia: Plan: #. Acute Hypoxic Respiratory Failure #. Bilateral Pleural Effusions secondary to acute on chronic diastolic congestive heart failure exacerbation #. GEOFF over CKD #. Acute metabolic encephalopathy: Multifactorial/uremia #. Possible pneumonia Per admitting service notes: Progressive dyspnea on exertion, PND and orthopnea for ~1 week. Required 4-5L NC in ED to maintain SpO2 >90%. BNP 35723 and CXR showing interval progression of bilateral pleural effusions (L > R). Multifactorial etiologies --> acute on chronic HFpEF, severe protein calorie malnutrition, pleural effusions. Patient requiring nonrebreather oxygenhigh flow [does not use home oxygen]. Cardiology on board: End-stage heart disease, Stop diuresis. Morphine for agitation, Now in AFIB RVR with BP in 60s-Patient is actively Dying, MOSF Cr and K rising, Now AF RVR c low BP-DNR/DNI Pleural effusion: Likely secondary to heart failure. Left larger than right with bibasilar consolidation. Worsening pleural effusion 11/15. Pulmonology on board: Pleural effusion relatively small on ultrasound, favor medical management including aggressive diuresis. Even with thoracentesis, pleural fluid will reaccumulate fairly rapidly as in past. Do not recommend serial thoracentesis. BUN and creatinine remains elevated, creatinine baseline around 1.58. Due to need for continued diuresis which is getting complicated with worsening kidney function, nephrology was consulted. Nephrology on board: expects her kidney to decline at the last stages of her life. Recommends to continue with Lasix. No need for IV fluid. Also concurs with cardiology and pulmonology regarding palliative medicine with hospice care. Not a candidate for dialysis given her end-stage cardiac disease and severe pulmonary hypertension. Will continue with lasix. Discussed with nephrology. We will put IV morphine as needed. Follow-up with blood labs tomorrow. Repeat CXR oncern for worsening pleural effusion and possible infectious process, likely pneumonia. Pro-Ezio elevated. ATB started 11/15. Currently on cefepime and doxy. Continue to monitor. #. Normocytic Anemia Per admitting service notes: Hgb greater than 8, baseline ~8-10. No signs of active bleeding. Suspect worsening anemia of chronic disease due to complicated PMHx that includes MM and CKD. - transfuse as necessary for Hgb <7 (patient was transfused during previous hospitalization in 10/2020). check daily Hb. Status post 1 unit transfusion 11/14 #. Hypertension moving towards hypotension Hold antihypertensive, continue with Lasix when able We will put her on midodrine for hypotension Not sure whether she will be an ICU candidate for pressor support #. Prolonged QTc QTc 486 ms. - Avoid QTC prolonging meds as able #. Hyperlipidemia - continue statin #. Aortic stenosis S/P TAVR - Continue home meds #. Compression fractures - Pain control PRN - PT, OT when stable Code Status: DNR/DNI Disposition: med/surg, Palliative care on board. From Dr Pate's Note She looks like on the verge of worsening status. Her kidneys are shutting down. Patient was asked multiple times if she has any DPOA, she does not answer that question. I called Elliott Stanford 11/14 [nephew, is in the system], he stated that he is not the DPOA for her and would not be able to make any decision. He suggested that there is a brother of hers by the name Cosme in [place], whose phone number he does not have, also states that she had some issues with her brother around 5 years ago since then the are not speaking with his other. He suggested that he would be the closest relative for her. I asked the patient if she knows the number to her brother Cosme, she said she does not have the number. 11/15 Tried to talk with patient regarding hospice care multiple times, patient did not seem interested, RN is worried that she is declining everything in general. Expect worsening health status. per RN, her neighbor Kiana called but patient was not able to make meaningful conversation. Kiana stated that she does not have any relatives to get in touch with. 11/16 patient is more delirious and not answering appropriately. Talked with member of ethics committee Juan Ramon Vela for evaluation and recommendation at around 11 AM 11/16. Patient is actively Dying, Suggest [employer]ER, We have no BP, HR, or renal function to play with, DNR/DNI so no shock, DC tele ROS-Offers no history Physical Exam Gen-Mod Distress, Afebrile, On NRB, does some talking, but weak Head-NCAT, EOMI, PERRLA, Anicteric Sclera, No Posterior Pharyngeal Erythema Neck-Supple, No JVD, No Thyromegaly, No Masses, No LAD, No Bruits Lungs-Clear to Auscultation Bilaterally, No Rales, No Rhonchi, No Wheezing, No Crepitus Chest-No S4, +S1, +S2, No S3, No Murmurs, No Rubs, No Gallops, No Ectopy Abdomen-Soft, Bowel Sounds Present, Non Tender, Non Distended, No Hepatomegaly, No Splenomegaly, No Palpable Masses, No Rebound, No Rigidity, No Guarding Musculoskeletal-No CVAT, Sore legs Extremities-No Cyanosis, No Clubbing, No Edema Nuero-Cranial Nerves II-XII grossly intact, non Focal Psych-Somnolent/Dying Admission and Anticipated Discharge Date Admission Date: November 10, 2020 Results & Data Results & Data ([facility]) Vital Signs (Past 12 Hours) Vital Signs Temp Pulse Pulse Resp BP Pulse Ox 11/17/20 10:42 140 H 62/40 L 11/17/20 08:06 37.0 C 75 18 71/41 L 97 11/17/20 04:37 81 20 87/47 L 95 11/16/20 23:11 81 11/16/20 22:48 36.7 C 80 20 80/39 L 93
--- NOTE | 2020-11-17 11:14 | Nephrology Progress Note ---
Date of Service November 17, 2020 Assessment & Plan (1) Volume overload: Plan: from her endstage HF and advanced pulmonary disease with now severe pulmonary HTN I do not believe that dialysis alone would reverse this overload and respiratory failure; there is also +/- w/ role for over a year now untreated multiple myeloma (pt withdrew from chemo and hematology f/u summer 2019). as her cardiac status worsens, respiratory failure and renal failure are not unsurprisingly worsening as well. not a candidate for further thoracenteses. Cardiology recommends no further cardiac evaluations. she had failed diuretic therapy and medical mgt of hyperkalemia. Hospice strongly recommended by cardiology, pulmonary services; pt when she was conscious had repeatedly decli drea this. -her volume overload has progressed further. we have unfortunately reached a tipping point where she now has multiorgan failure and is actively dying (2) Acute kidney injury superimposed on chronic kidney disease: Plan: rapidly worsening anuric acute on chronic kidney injury w/ uremia; baseline renal function is stage 4 (not stage 3). she is not a dialysis candidate given her end stage cardiac disease and severe pulmonary HTN > I believe that her disease processes would not be stabilized with dialysis and would consider dialysis futile care. she is unfortunately not responding to medical therapy; agree w/ DNR/DNI status since she has not responded to conservative care and is now actively dying -continue conservative measures; not appropriate to escalate therapy at this time (3) Hyperkalemia: Plan: K up to 6.1 today > anuric on lasix, minimal if any po on patiromer so these meds are not effective and have been appropriately stopped. K increasing d/t uremia >pt is actively dying and now appropriately changed to DNR/DNI Admission and Anticipated Discharge Date Admission Date: November 10, 2020 Subjective seen on rounds this am; with altered MS, unable to give ROS; flipped to AF w/ RVR later this am after I saw her Review of Systems Review of Systems: Unobtainable due to reduced consciousness Physical Exam Constitutional: well developed, + thin, + altered mental status and + frail appearing Eyes: EOM intact bilaterally ENMT: Ears: no external ear abnormality Nose: no external nose abnormality Mouth: + dry oral mucous membranes Neck: no nuchal rigidity Respiratory: + labored breathing (slight); no cough and + not able to speak in complete sentence Auscultation: + diminished lung sounds Cardiovascular: Rate/Rhythm: + tachycardic Heart Sounds: + murmur Extremities: no edema Gastrointestinal (Abdomen): Inspection/Auscultation: normal bowel sounds Percussion/Palpation: abdomen soft; abdomen nontender Musculoskeletal: Extremities: + abnormal strength Skin: no rashes, warm and dry Neurologic: eyes closed, moaning and agitated/withdraws to position with exam maneuevers Results & Data ([facility]) Vital Signs (Past 12 Hours) Vital Signs Temp Pulse Pulse Resp BP Pulse Ox 11/17/20 10:42 140 H 62/40 L 11/17/20 08:06 37.0 C 75 18 71/41 L 97 11/17/20 04:37 81 20 87/47 L 95 11/16/20 23:11 81 Laboratory Results 11/17/20 07:10 11/17/20 07:10
--- NOTE | 2020-11-17 13:15 | Cardiology Progress Note ---
Date of Service November 17, 2020 Assessment & Plan (1) Diastolic CHF, acute on chronic: (2) Acute kidney injury superimposed on chronic kidney disease: (3) Hyperkalemia: Plan: End stage disease noted. Nephrology input from today noted and appreciated. Patient hypotensive, worsening creatinine, and hyperkalemia. Palliative care likely only option. Admission and Anticipated Discharge Date Admission Date: November 10, 2020 Subjective Patient seen in cardiology follow-up. High flow oxygen noted, unresponsive. Atrial fibrillation noted. Review of Systems Review of Systems: Unobtainable due to reduced consciousness Physical Exam Physical Exam: Temp Pulse Resp BP Pulse Ox 37.0 C 140 H 18 62/40 L 97 11/17/20 08:06 11/17/20 10:42 11/17/20 08:06 11/17/20 10:42 11/17/20 08:06 Constitutional: + cachectic Respiratory: Auscultation: + diminished lung sounds Cardiovascular: Rate/Rhythm: + tachycardic and + irregularly irregular Results & Data ([facility]) Vital Signs (Past 12 Hours) Vital Signs Temp Pulse Resp BP Pulse Ox 11/17/20 10:42 140 H 62/40 L 11/17/20 08:06 37.0 C 75 18 71/41 L 97 11/17/20 04:37 81 20 87/47 L 95
--- NOTE | 2020-11-17 13:38 | Communication Note ---
Date of Service: November 16, 2020 Ethics note - late entry from conversations 11/16 ~[address]a w Dr Tanner. called by dr tanner in regards to patient situation. he explained clinical details, multiple providers believing care was futile, pt not able to communicate for herself anymore, and no reachable family members who felt willing/able to make decisions (he noted one second degree relative they were able to reach who did not feel he could competently make decisions on patient's behalf, and apparently she had a brother that she last saw years ago who was not able to be found) -given patient's inability to voice for herself, combined with multiple physicians in multiple specialties all feeling her situation was unfortunately end-stage/futile/etc, dr tanner's plan of care seems quite reasonable. he has tried to follow patient autonomy, has not been able to reach a surrogate, and appears to be treating her appropriately given the overall very unfortunate situation.
[2020-11-17] MEDS ORDERED: STAT IV Infusion **Titration per Protocol STA (13:49)
[2020-11-17] MEDS ORDERED: HYDROmorphone INJ 0.5 MG/0.5 ML SYR IV STA (13:49)
[2020-11-17] MEDS ORDERED: LORazepam 0.5 MG/1 ML VIAL IV PRN (13:51)
[2020-11-17] MEDS ORDERED: GLYCOPYRROLATE 0.2 MG/ML VIAL IV PRN (13:51)
--- NOTE | 2020-11-17 13:57 | Palliative Care Progress Note ---
Date of Service November 17, 2020 Assessment & Plan (1) Palliative care encounter: Plan: Patient assessed for follow up. Patient has been hypotensive, tachycardic and obtunded with full use of accessory muscle for breathing. An ethics consult was placed yesterday as it has been challenging to determine a designated decision maker. She had, on previous admission to co, stated she had a nephew, Elliott that has been involved in her care previously; however, nothing was officially signed. Dr. Vela was consulted yesterday from an ethical standpoint. Her condition has been deemed futile and she no longer has decision making capacity. I was able to talk to Elliott at [phone] and I explained that her body is dying and it is likely she will pass away within the next hours to a day or two with her worsening kidney function and increasing respiratory needs. He was in support of a full transition to comfort measures which has now been initiated. Would recommend patient be in a private room. Case discussed with hospitalist and nurse. Dilaudid gtt initiated due to creatinine of 7.72. Potassium is 6.1. Dilaudid gtt per protocol, Robinul for secretions, and Ativan for terminal restlessness. Please contact Palliative Medicine with any further questions. (2) Diastolic CHF, acute on chronic: (3) Shortness of breath: (4) Decreased appetite: (5) Weakness: Admission and Anticipated Discharge Date Admission Date: November 10, 2020 Subjective Patient unresponsive/obtunded. Does not follow any tactile or verbal stimulation. Patient hypotensive and not responding to a previously administered NS bolus. Patient tachycardic with worsening renal function. Patient appears to be actively dying. See A/P for further details. Review of Systems Review of Systems: [place] [facility] Assessment Scale: Pain: 1/3 by observation SOB: 3/3 by observation Anxiety: 1/3 by observation Tiredness: 3/3 by observation Palliative Performance Scale: 10% Physical Exam Constitutional: + acute distress and + frail appearing ENMT: Mouth: + dry oral mucous membranes Respiratory: + labored breathing and + uses accessory muscles Auscultation: + rhonchi Cardiovascular: Rate/Rhythm: + tachycardic Heart Sounds: normal S1 and normal S2 Gastrointestinal (Abdomen): Inspection/Auscultation: abdomen normal to inspection Percussion/Palpation: abdomen soft Neurologic: + obtunded Results & Data ([facility]) Vital Signs (Past 12 Hours) Vital Signs Temp Pulse Resp BP Pulse Ox 11/17/20 10:42 140 H 62/40 L 11/17/20 08:06 37.0 C 75 18 71/41 L 97 11/17/20 04:37 81 20 87/47 L 95 PG Care Time/CCT Total # of Minutes Spent Total Time Spent with Patient: Total time spent is greater than 50% in coordination of care (as documented) at patient's floor/unit and/or counseling patient: 45 minutes with > 50% of that time spent assessing the patient, discussing goals of care, assessing symptom management, and collaborating with IDT Coding Level of Care Code 00106 Subseq Hosp Care Lvl 3 Diagnoses Palliative care encounter Z51.5 Diastolic CHF, acute on chronic I50.33 Shortness of breath R06.02 Decreased appetite R63.0 Weakness R53.1 Time Spent (min) 45
[2020-11-17] MEDS ORDERED: HYDROmorphone/NSS 100 MG/100 ML BAG IV SCH (14:00)
--- NOTE | 2020-11-17 18:50 | Discharge Summary ---
Date of Service November 17, 2020 Admission HPI Per Admitting Provider Tamie Lopez is an 80 yo female with complex PMHx that includes Multiple Myeloma, HFpEF, HLD, HTN, Aortic Stenosis s/p TAVR, CKD3, peripheral polyneuropathy, bladder tumor that was removed 01/20, non-melanoma skin cancer and compression fractures, who presented to [facility] ED from [facility] on 11/10 for progressive shortness of breath. Patient reports worsening shortness of breath, dyspnea on exertion, orthopnea and paroxysmal nocturnal dyspnea for several days. Reports minimal PO intake over the last several weeks although occasionally eats chicken noodle soup. Patient reports that her appetite has been steadily declining over the last several weeks and she is not sure why. She also reports several days of chest pressure although the pain is reproducible on palpation of chest. Also reports worsening generalized weakness and fatigue associated with decreased appetite. Tamie was recently admitted to [facility] for acute hypoxic respiratory failure in context of bilateral pleural effusions and HFpEF exacerbation - underwent left thoracentesis of 560cc transudative fawn-colored fluid likely due to HFpEF. Patient was also transfused 2 units of pRBCs for Hgb <7 likely in context of anemia of chronic disease (no active bleeding). Palliative care was consulted at that time for worsening protein calorie malnutrition and failure to thrive in addition to complex PMHx - hospice was discussed but declined by patient. Patient was discharged to [facility] facility on 10/29 but developed above- mentioned symptoms so was sent here. No recent changes in medications. In the ED the patient was hypoxic to mid 80s and started on 4L NC; subsequently SpO2 remained >92% and other VSS/WNL. Laboratory evaluation was notable for Hgb 7.7 (baseline ~8-10), Cr 1.58 (baseline 1.5 - 1.8), BNP 66075 (~04785 at last admission), Troponin .073. Imaging showed interval progression of bilateral pleural effusions (L > R) and pulmonary edema. Admission Exam Per Admitting Provider General: A&Ox3. NAD. Cooperative. HEENT: Atraumatic, normocephalic. Pulm: CTAB A&P. -wheezes, -rales, -rhonchi. Symmetrical chest rise. No increase work of breathing. No respiratory distress. Chest: pectus carinatum, mild tenderness to palpation of sternum Cardiac: RRR, -mrg. Radial pulses intact and symmetrical. No LE edema. Abdominal: soft, non-tender, non-distended, BS x 4 Skin: warm, dry, no rash Principal Diagnosis (1) Diastolic CHF, acute on chronic: (2) Bilateral pleural effusion: (3) Acute respiratory failure with hypoxia: #. GEOFF over CKD #. Acute metabolic encephalopathy: Multifactorial/uremia #. Pneumonia #. Normocytic Anemia #. Hypertension Prolonged QTc #. Hyperlipidemia #. Aortic stenosis #. Compression fractures Discharge Exam at 1800 Hours today 11/17/20 Discharge Data Allergies Allergy/AdvReac Type Severity Reaction Status Date / Time No Known Allergies Allergy Verified 10/20/20 21:48 Consultations 11/10/20 21:44 ED Decision to Admit Stat 11/10/20 23:08 Consult Palliative Care Routine 11/11/20 08:05 Consult Cardiology Routine 11/13/20 11:30 Consult Pulmonology Routine 11/13/20 11:35 Consult Nephrology Routine Ordered Studies 11/13/20 13:35 US effusion-chest/mediastinum Routine 11/15/20 09:45 CT head/brain wo con Routine Current Diagnoses Anemia, unspecified (11/10/20) Moderate protein-calorie malnutrition (11/10/20) Hyperkalemia (11/10/20) Fluid overload, unspecified (11/10/20) Atherosclerotic heart disease of ramona coronary artery without angina pectoris (11/10/20) Pulmonary hypertension, unspecified (11/10/20) Nonrheumatic aortic (valve) stenosis (11/10/20) Acute on chronic diastolic (congestive) heart failure (11/10/20) Disorder of arteries and arterioles, unspecified (11/10/20) Pleural effusion, not elsewhere classified (11/10/20) Acute respiratory failure with hypoxia (11/10/20) Acute kidney failure, unspecified (11/10/20) Chronic kidney disease, unspecified (11/10/20) Shortness of breath (11/10/20) Weakness (11/10/20) Anorexia (11/10/20) Encounter for palliative care (11/10/20) Presence of prosthetic heart valve (11/10/20) Allergies No Known Allergies Allergy (Verified 10/20/20 21:48) Height/Weight/Isolation Height 5 ft 1 in Weight 52.1 kg Chemistry 11/16/20 11/17/20 05:21 07:10 Sodium 133 L 131 L Potassium 5.4 H 6.1 H* Chloride 101 100 Carbon Dioxide 22 18 L Anion Gap 10.0 14.0 H BUN 117 H 133 H Creatinine 6.04 H* D 7.72 H* D Glucose 126 H 123 H Microbiology 11/15/20 15:06 Blood Aerobic Blood Culture - Preliminary No growth in Aerobic bottle after 48 hours. 11/15/20 15:06 Blood Anaerobic Blood Culture - Preliminary No growth in Anaerobic bottle after 48 hours. 11/15/20 15:26 Blood Aerobic Blood Culture - Preliminary No growth in Aerobic bottle after 48 hours. 11/15/20 15:26 Blood Anaerobic Blood Culture - Preliminary No growth in Anaerobic bottle after 48 hours. Hospital Course (1) Diastolic CHF, acute on chronic: (2) Bilateral pleural effusion: (3) Acute respiratory failure with hypoxia: #. Acute Hypoxic Respiratory Failure #. Bilateral Pleural Effusions secondary to acute on chronic diastolic congestive heart failure exacerbation #. GEOFF over CKD #. Acute metabolic encephalopathy: Multifactorial/uremia #. Pneumonia Per admitting service notes: Progressive dyspnea on exertion, PND and orthopnea for ~1 week. Required 4-5L NC in ED to maintain SpO2 >90%. BNP 73957 and CXR showing interval progression of bilateral pleural effusions (L > R). Multifactorial etiologies --> acute on chronic HFpEF, severe protein calorie malnutrition, pleural effusions. Patient requiring nonrebreather oxygenhigh flow [does not use home oxygen]. Cardiology on board: End-stage heart disease, Stop diuresis. Morphine for agitation, Now in AFIB RVR with BP in 60s-Patient is actively Dying, MOSF Cr and K rising, Now AF RVR c low BP-DNR/DNI Pleural effusion: Likely secondary to heart failure. Left larger than right with bibasilar consolidation. Worsening pleural effusion 11/15. Pulmonology on board: Pleural effusion relatively small on ultrasound, favor medical management including aggressive diuresis. Even with thoracentesis, pleural fluid will reaccumulate fairly rapidly as in past. Do not recommend serial thoracentesis. BUN and creatinine remains elevated, creatinine baseline around 1.58. Due to need for continued diuresis which is getting complicated with worsening kidney function, nephrology was consulted. Nephrology on board: expects her kidney to decline at the last stages of her life. Recommends to continue with Lasix. No need for IV fluid. Also concurs with cardiology and pulmonology regarding palliative medicine with hospice care. Not a candidate for dialysis given her end-stage cardiac disease and severe pulmonary hypertension. Will continue with lasix. Discussed with nephrology. We will put IV morphine as needed. Follow-up with blood labs tomorrow. Repeat CXR oncern for worsening pleural effusion and possible infectious process, likely pneumonia. Pro-Ezio elevated. ATB started 11/15. Currently on cefepime and doxy. Continue to monitor. #. Normocytic Anemia #. Hypertension moving towards hypotension #. Prolonged QTc #. Hyperlipidemia #. Aortic stenosis #. Compression fractures Code Status: DNR/DNI Disposition: med/surg, Palliative care on board. From Dr Pate's Note She looks like on the verge of worsening status. Her kidneys are shutting down. Patient was asked multiple times if she has any DPOA, she does not answer that question. I called Elliott Stanford 11/14 [nephew, is in the system], he stated that he is not the DPOA for her and would not be able to make any decision. He suggested that there is a brother of hers by the name Cosme in [id number], whose phone number he does not have, also states that she had some issues with her brother around 5 years ago since then the are not speaking with his other. He suggested that he would be the closest relative for her. I asked the patient if she knows the number to her brother Cosme, she said she does not have the number. 11/15 Tried to talk with patient regarding hospice care multiple times, patient did not seem interested, RN is worried that she is declining everything in general. Expect worsening health status. per RN, her neighbor Kiana called but patient was not able to make meaningful conversation. Kiana stated that she does not have any relatives to get in touch with. 11/16 patient is more delirious and not answering appropriately. Talked with member of ethics committee Juan Ramon Vela for evaluation and recommendation at around 11 AM 11/16. Patient today at 1800 11/17/2020 Cause of Cardiorenal Syndrome, Multi Organ System Failure, Acute Combined CHF Total Time Total Time Spent Total Time Spent (In Minutes): 45 mins Total Time Includes: Examination of the Patient, Discharge Planning and Communication With Other Providers Discharge Plan Discharge Items Patient Disposition: Reason For Visit: SHORTNESS OF BREATH Discharge Diagnosis: (1) Diastolic CHF, acute on chronic: (2) Bilateral pleural effusion: (3) Acute respiratory failure with hypoxia: #. GEOFF over CKD #. Acute metabolic encephalopathy: Multifactorial/uremia #. Pneumonia #. Normocytic Anemia #. Hypertension Prolonged QTc #. Hyperlipidemia #. Aortic stenosis #. Compression fractures Condition on Discharge: Fair Follow-up/Referrals: [facility] [Primary Care Provider] - Addtl Attending Provider Instructions: none Medications and DC Order Prescriptions: No Action atorvastatin 80 mg Tablet 80 mg PO QAM RF: 0 amlodipine [Norvasc] 5 mg Tablet 10 mg PO HS RF: 0 lisinopril 10 mg Tablet 10 mg PO QAM RF: 0 metoprolol tartrate [Lopressor] 50 mg Tablet 50 mg PO BID RF: 0 hydrochlorothiazide 25 mg Tablet 25 mg PO QAM RF: 0 Eliquis 2.5 mg tablet 2.5 mg PO BID RF: 0 cetirizine 1 mg/mL solution 5 mg PO DAILY RF: 0 acyclovir 400 mg tablet 400 mg PO DAILYBB RF: 0 lidocaine 5 % Adhesive Patch,Medicated 1 patch transdermal QAM Qty: 30 RF: 0 potassium chloride 20 mEq tablet extended release 20 meq PO DAILY Qty: 30 RF: 0 Admission Data Admit Date/Time: 11/10/20 23:39 Attending Provider: Lev Reeves Admit Provider: Isauro Guzman Primary Care Provider: [facility] Other Providers: Mg Lassiter ; [facility] ; Joan Sprague ; Shannon Howell ; Omar Perales ; Juan Daniel Arnold ; Tiburcio Harper
--- NOTE | 2020-11-17 18:58 | Communication Note ---
Date of Service: November 17, 2020 Contacted by nursing staff that patient ceased to breathe. Upon arrival to the bedside patient is motionless. On exam pupils are fixed and dilated and u nresponsive to light. She is not responding to visit physical or verbal stimulation. Cardiac auscultation reveals no evidence of heart sounds or breath sounds. Time of is 6:55 PM. Family was notified by phone by the undersigned. Pia Sampson DO [facility] Hospitalist
[2020-11-18] MEDS ORDERED: CEFEPIME 1,000 MG in SYRINGE 0 ML IV SCH
== END 2020-11-17 20:49 | disposition expired | DRG 291 ==
LOC: ED 17:18 → SUATTDRO 23:39 → 2W 11-11 → SUATTDRO 11-11 → 2N 11-13 01:54